=== PATIENT | female | born 1965 | race Caucasian/White ===

== ENCOUNTER 2016-06-25 06:43 | Inpatient (IN) | payer OTHER, BC ==
[2016-05-29 13:51] VITALS: BMI 35.0
--- NOTE | 2016-05-29 14:32 | PAT Medication Instructions ---
Service Date May 29, 2016. Current Home Medication List Ascorbic Acid (Yahaira-C), 1,000 MG PO QAM Aspirin (Aspirin Chewable), 81 MG PO QAM Cat's Claw (Uncaria Tomentosa) (Cats Claw), Unknown Dose QAM Celecoxib (Celebrex), 1 CAP PO QAM Cholecalciferol (Vitamin D3), 1 TAB PO QAM Esomeprazole Magnesium (Nexium), 40 MG PO QAM Iodine (Topical) (Iodine), 3-5 DROP PO QAM Magnesium Oxide (Mag-Ox), 400 MG PO QPM Multiple Vitamin (Multivitamin), 1 TAB PO QAM Potassium Gluconate (Potassium Gluconate), 1 TAB PO QAM Saccharomyces Boulardii (Probiotic), 1 CAP PO QPM Zinc (Cvs Zinc), 1 TAB PO QAM Medication Instructions For Your Scheduled Surgery - Check with surgeon for instructions: Celecoxib (Celebrex), 1 CAP PO QAM - Hold the following medications the morning of surgery: Zinc (Cvs Zinc), 1 TAB PO QAM Potassium Gluconate (Potassium Gluconate), 1 TAB PO QAM Multiple Vitamin (Multivitamin), 1 TAB PO QAM Cholecalciferol (Vitamin D3), 1 TAB PO QAM Ascorbic Acid (Yahaira-C), 1,000 MG PO QAM Iodine (Topical) (Iodine), 3-5 DROP PO QAM Cat's Claw (Uncaria Tomentosa) (Cats Claw), Unknown Dose QAM - Take the following medications the morning of surgery with a sip of water: Esomeprazole Magnesium (Nexium), 40 MG PO QAM Aspirin (Aspirin Chewable), 81 MG PO QAM (okay to continue per surgeon) - Take the following medications as scheduled the night before surgery: Saccharomyces Boulardii (Probiotic), 1 CAP PO QPM Magnesium Oxide (Mag-Ox), 400 MG PO QPM If you have any questions please call us at [phone] (Annika Miguel PA-C) or [phone] or [phone]
[2016-05-29 15:20] LABS: URINE APPEARANCE CLEAR (CLEAR); URINE BILIRUBIN NEG (NEG); URINE COLOR YELLOW; URINE NITRITE NEG (NEG); URINE PH 6.5 (4.5-7.5); URINE SPECIFIC GRAVITY 1.008 (1.000-1.030); UROBILINOGEN NEG (NEG)
[2016-05-29 15:22] LABS: MANUAL MICROSCOPIC REQUIRED? NO; REVIEW REQ? NO
[2016-05-29 15:28] LABS: PROTHROMBIN TIME (PATIENT) 10.4 SECONDS (9.0-12.0)
[2016-05-30 06:05] LABS: ESTIMATED AVERAGE GLUCOSE 108 mg/dl; HA1C FLAG Normal (Normal)
--- NOTE | 2016-06-24 15:48 | HISTORY & PHYSICAL EXAMINATION ---
DATE OF ADMISSION: 06/25/2016 CHIEF COMPLAINT: Left hip pain. HISTORY OF PRESENT ILLNESS: The patient is a 50-year-old female with known osteoarthritis about her left hip. She has had progressive pain with weightbearing and activities of daily living. She has pain with any kneeling, bending, or squatting activities. She has pain with work and home activities. She takes Tylenol for pain as needed. Due to ongoing pain and disability, she now desires to proceed with left total hip arthroplasty. PAST MEDICAL HISTORY: Lyme disease, acid reflux, obesity. PAST SURGICAL HISTORY: Right ankle, bilateral carpal tunnel, bilateral knee arthroscopy. MEDICATIONS: Plaquenil daily, vitamins, daily baby aspirin, Nexium daily. ALLERGIES: No known drug allergies. SOCIAL HISTORY AND REVIEW OF SYSTEMS: Noncontributory. PHYSICAL EXAMINATION: GENERAL: Well-nourished, well-developed, obese female who appears her stated age. HEENT: Normocephalic, atraumatic, extraocular movements intact, oropharynx pink and moist. NECK: Supple without adenopathy. LUNGS: Clear to auscultation bilaterally. HEART: Regular rate and rhythm. ABDOMEN: Soft, nontender, nondistended. EXTREMITIES: The upper extremity within normal limits. The left hip demonstrates limited range of motion. There is limitation of active and passive internal/external rotation with pain at end range. X-RAYS: X-rays were reviewed. She has near complete loss of the joint space of the left hip. There is osteophyte formation about the femoral head and acetabulum. ASSESSMENT: Left hip degenerative joint disease. PLAN: Risks versus benefits were discussed. Consent was obtained. The patient's primary care physician is Maya Martin PA-C from the [facility] in [place]. Will proceed with left total hip arthroplasty upon preop workup and medical clearance.
[2016-06-25] VITALS (12 sets, daily range): BP systolic 60–150; BP diastolic 43–92; PULSE 66–75; TEMP 36.4–36.9; O2SAT 95–100; Ht 172.7 cm; Wt 105.3 kg
[~2016-06-25] VITALS: Ht 172.7 cm; Wt 105.3 kg
[2016-06-25] MEDS: TRANEXAMIC ACID INJ 1,000 MG in SODIUM CHLORIDE 0.9% 100ML 100 ML IV SCH ×2 (06:30→08:34)
[~2016-06-25 06:43] MED LIST: ACETAMINOPHEN 500 MG TAB PO SCH; ASCOCRY2 PO; ASPCH81X PO; CAT; CEFAZOLIN 2000 MG/60 ML D5W 60 ML IV SCH; CHOL1000 PO; CLB100 PO; CeleBREX 200 MG CAP PO SCH; DEXAMETHASONE 4 MG TAB PO SCH; GABAPENTIN 300 MG CAP PO SCH; IODITIN6 PO; LACTATED RINGER'S 1000ML 1,000 ML IV SCH; LACTATED RINGER'S 1000ML 500 ML IV ONE; MAGN400T6 PO; METOCLOPRAMIDE HCL 10 MG TAB PO SCH; MULTTAB58 PO; NXM/40 PO; POTA2.5T PO; ROPIVACAINE 5MG/ML 30 ML 150 MG, BUPIVACAINE/EPINEPHR 0.5% MPF 30 ML, KETOROLAC TROMETH... INFIL SCH; SACC250C11 PO; ZINC50TA36 PO
[2016-06-25] MEDS ORDERED: FENTANYL CITRATE INJ 50 MCG/1 ML 2 ML VIAL ONE (07:26)
[2016-06-25] MEDS ORDERED: MIDAZOLAM HCL 1 MG/ML 2ML VIAL ONE (07:26)
[2016-06-25] MEDS ORDERED: PROPOFOL IV EMULSION 10 MG/ML 20 ML VIAL IV ONE ×2 (07:26→09:19)
[2016-06-25] MEDS ORDERED: LIDOCAINE HCL 2% 2 ML VIAL (20MG/ML) ONE (07:26)
[2016-06-25] MEDS ORDERED: ONDANSETRON INJ 2 MG/ML 2 ML VIAL ONE (07:27)
[2016-06-25] MEDS ORDERED: DEXAMETHASONE SOD INJ 4 MG/ML VIAL ONE (07:27)
--- NOTE | 2016-06-25 08:03 | History & Physical Bridge Note ---
H&P Re-Evaluation Bridge Note: I have examined the patient, reviewed the History & Physical and in the interval since the performance of the History & Physical I have noted the following changes of clinical significance: No changes noted
[2016-06-25] MEDS ORDERED: BUPIVACAINE 0.5 % 5 MG/1 ML PF 10ML VIAL ONE (08:07)
[2016-06-25] MEDS ORDERED: ATROPINE SULFATE 0.1 MG/ML 5ML SYR IV PRN (08:15)
[2016-06-25] MEDS ORDERED: EpHEDrine SULFATE INJ 50 MG/ML AMP IV PRN (08:15)
[2016-06-25] MEDS ORDERED: ONDANSETRON INJ 2 MG/ML 2 ML VIAL IV PRN ×2 (08:15→10:30)
[2016-06-25] MEDS ORDERED: FENTANYL CITRATE INJ 50 MCG/1 ML 2 ML VIAL IV PRN (08:15)
[2016-06-25] MEDS ORDERED: POVIDONE-IODINE OP SOLN 30 ML BTL ONE (08:29)
[2016-06-25] MEDS ORDERED: ORTHO JOINT ANESTHETIC ONE (08:29)
[2016-06-25] MEDS ORDERED: BACITRACIN 50000 UNIT VIAL ONE (08:29)
[2016-06-25] MEDS ORDERED: EpHEDrine SULFATE INJ 50 MG/ML AMP ONE (09:47)
--- NOTE | 2016-06-25 09:55 | [facility] Post Operative Brief Note ---
Immediate Operative Summary Operative Date June 25, 2016. Pre-Operative Diagnosis Left Hip Degenerative Joint Disease Post-Operative Diagnosis Left Hip Degenerative Joint Disease Procedure(s) Performed Left Total Hip Arthroplasty Surgeon Dr. Crowe Surgical Appliances Salesperson Surgeon(s) Hernandez Zhang Estimated Blood Loss 100 ml Findings OA with loose body Specimens A: Left Hip Femoral Head Complication(s) None Disposition Recovery Room / PACU
--- NOTE | 2016-06-25 10:18 | OPERATIVE REPORT ---
DATE OF OPERATION: 06/25/2016 PREOPERATIVE DIAGNOSIS: Osteoarthritis, left hip. POSTOPERATIVE DIAGNOSIS: Osteoarthritis, left hip. PROCEDURE: Left connective total hip arthroplasty. SURGEON: Dr. Crowe. PATTERN HANGER: Hernandez Cleary PA-C. ANESTHESIA: Spinal. COMPLICATIONS: None. IMPLANTS USED: Acetabular reamer used 52, acetabular shell 52, femoral stem 5, and femoral head -2.5 x 36 ceramic. DESCRIPTION OF PROCEDURE: Following induction of adequate spinal anesthesia, the patient was placed in right lateral decubitus position and left Terrell-Langenbeck incision was made. Subcutaneous tissue was sharply dissected. Electrocautery used for hemostasis. The fascia was incised throughout the length of the wound and a good scissor placed beneath the short external rotators. The pyriformis was tagged with #1 Vicryl. The short external rotators were divided from the posterior aspect of the femur using electrocautery. These were swept posteriorly. A T-capsulotomy incision was made and the hip was dislocated using a combination of flexion, adduction, and internal rotation. Exposure of the femoral neck with old-style Hohmann and a blunt Hohmann was carried out and a femoral rasp was utilized as a guide for making the appropriate level femoral neck cut. This bone fragment was removed and reserved on the back table. Next, attention was turned to the acetabulum where bone hook was used to retract the femur while the offset retractors were placed anterior and posteriorly. A double-angled Hohmann was placed in superior and anterior position exposing the acetabulum nicely. Acetabular labrum as well as posterior capsule elements were removed using a long knife and a long pickup. Fovea centralis was cleared of all soft tissue. Sequential reamings were carried up to a 52 and decision was made to proceed with impaction of a 52 trabecular metal cup. This was impacted and held using a single 35 mm bone screw. The acetabular liner was placed with 15 of elevated posterior wall in the superior and posterior position. Next, attention was turned to the femoral portion of the case where a Bovie and pickup was used to further clear short external rotators from their insertion on the femur. Box osteotome was used to gain access to the femoral canal and the T-handled rasp and a rattail rasp were used to further open and lateral the canal. Sequentially raspings were carried up to a size 5, which gave good fit and fill of the proximal femur. A trial reduction was carried out and 5 offset femoral neck component was chosen as the size to be used. A -2.5 x 36 mm femoral head was impacted into position, +0 head was utilized. The trial reduction was stable in all degrees of rotation with no [id number] impingement. The hip was dislocated. The trial components were removed and the final femoral stem, neck, and femoral head combination were assembled on the back table and impacted into position. Hip was relocated. Range of motion checked once again successful and the wound was irrigated. The pyriformis repaired to the greater trochanter using #1 Vicryl [id number] suture. A Hemovac drain was placed and the fascia was closed using #1 Vicryl, subcutaneous tissue was closed using 0 Dexon, and skin was closed with thalia. Sterile dressing of Adaptic, 4 x 4's, ABDs, and foam tape was applied. The patient tolerated the procedure well. Due to the complex nature of the procedure, the entire surgery was performed with the operational assistance of Hernandez Cleary PA-C. The water quality assistant, under direct supervision, was involved in the actual performance of all aspects of the surgical procedure including hemostasis, tissue retraction and incision, instrument management, patient positioning, and wound closure. DISPOSITION: Recovery room stable. I attest to the content of the Intraoperative Record and any orders documented therein. Any exceptio ns are noted below.
[2016-06-25] MEDS ORDERED: ZOLPIDEM TARTRATE 5 MG TAB PO PRN (10:30)
[2016-06-25] MEDS ORDERED: METOCLOPRAMIDE HCL INJ 5 MG/ML 2 ML VIAL IV PRN (10:30)
[2016-06-25] MEDS ORDERED: MoRPHine SULFATE 2 MG/ML CARP IV PRN ×2 (10:30→12:45)
[2016-06-25] MEDS ORDERED: MAGNESIUM HYDROXIDE SUSP 30 ML UDC PO PRN (10:30)
[2016-06-25] MEDS ORDERED: ALUMINUM/MAGNESIUM/SIMETH (MAALOX MAX) 30 ML UDC PO PRN (10:30)
--- NOTE | 2016-06-25 10:56 | Anesthesiology Progress Note ---
Anesthesia Post Op Note Date & Time June 25, 2016 at 10:57 Vital Signs Pain Intensity: 0 Vital Signs Past 12 Hours Date Time Temp Pulse Resp B/P Pulse Ox O2 Delivery O2 Flow Rate FiO2 06/25/16 10:45 73 18 114/71 100 Mask 6 06/25/16 10:35 76 20 113/68 100 Mask 10 06/25/16 10:28 36.6 79 20 114/73 100 Mask 10 06/25/16 07:12 36.5 73 20 135/80 98 Room Air Notes Mental Status: alert / awake / arousable, participated in evaluation Pt Amnestic to Procedure: Yes Nausea / Vomiting: adequately controlled Pain: adequately controlled Airway Patency, RR, SpO2: stable & adequate BP & HR: stable & adequate Hydration State: stable & adequate Neuraxial Anesthesia: was administered, sensory block is resolving Anesthetic Complications: no major complications apparent
--- NOTE | 2016-06-25 11:15 | DIAGNOSTIC IMAGING REPORT ---
SINGLE VIEW PELVIS; SINGLE VIEW LEFT HIP CLINICAL HISTORY: Postoperative examination. FINDINGS: 2 AP portable views of the hips and pelvis with a crosstable lateral portable view of the left hip are obtained. A bipolar left hip arthroplasty is in near-anatomic alignment. A single cortical lag screw transfixes the acetabular cup. No acute fracture is identified. There are expected postoperative changes overlying the left hip including skin clips, subcutaneous gas, a surgical drain, and soft tissue swelling. IMPRESSION: Expected postoperative findings status post left hip arthroplasty. No acute fracture is seen. Electronically signed by: Ryan Castro M.D. 06/25/2016 11:14 AM Dictated Date/Time: 06/25/2016 11:13 AM
[2016-06-25] MEDS ORDERED: MoRPHine SULFATE 10 MG/ML CARP/VIAL IV PRN (12:45)
[2016-06-25] MEDS ORDERED: MoRPHine SULFATE 4 MG/ML 1 ML CARP\\VIAL IV PRN (12:45)
[2016-06-25] MEDS: D5W AND 1/2NSS + 20MEQ KCL 1,000 ML IV SCH ×2 (13:04→20:45)
[2016-06-25] MEDS: FERROUS GLUCONATE 324 MG TAB PO SCH ×2 (13:42→17:57)
[2016-06-25] MEDS: ACETAMINOPHEN 500 MG TAB PO SCH ×2 (13:43→21:41)
[2016-06-25] MEDS: KETOROLAC TROMETHAMINE 30 MG/ML VIAL IV. SCH ×2 (13:44→20:31)
[2016-06-25] MEDS: OXYCODONE HCL IR 5 MG TAB (IMMEDIATE RELEASE) PO PRN (14:10)
[2016-06-25] MEDS: CEFAZOLIN IV 2,000 MG in DEXTROSE 5% 50ML 50 ML IV SCH (15:56)
[2016-06-25] MEDS ORDERED: SODIUM CHLORIDE 0.9% 1000ML 1,000 ML IV STA (19:14)
[2016-06-25 19:29] LABS: HEMATOCRIT 34.3 % (37-47)
[2016-06-25] MEDS: MAGNESIUM OXIDE 400 MG TAB PO SCH (21:39)
[2016-06-25] MEDS: ASPIRIN 81 MG ECTAB PO SCH (21:39)
[2016-06-25] MEDS: PREGABALIN 75 MG CAP PO SCH (21:39)
[2016-06-25] MEDS: DOCUSATE SODIUM 100 MG CAP PO SCH (21:39)
[2016-06-25] MEDS ORDERED: GLUCAGON FOR INJ 1 MG VIAL SQ PRN (22:15)
[2016-06-25] MEDS ORDERED: GLUCOSE 40% GEL 15 GM TUBE PO PRN (22:15)
[2016-06-25] MEDS ORDERED: DEXTROSE 50% 50 ML SYR IV PRN (22:15)
[2016-06-25] MEDS ORDERED: GLUCOSE 10 TABS/TUBE PO PRN (22:15)
[2016-06-25 22:58] LABS: ALB/GLOB RATIO 1.4 (0.9-2); ALKALINE PHOSPHATASE 44 U/L (45-117); ALT/SGPT 30 U/L (12-78); AST/SGOT 28 U/L (15-37); BLOOD UREA NITROGEN 15 mg/dl (7-18); BUN/CREATININE RATIO 14.9 (10-20); CARBON DIOXIDE 30 mmol/L (21-32); CHLORIDE 104 mmol/L (98-107); CKMB/CK RATIO 1.1 (0-3.0); GLUCOSE 168 mg/dl (70-99); MAGNESIUM 1.8 mg/dl (1.8-2.4); POTASSIUM 4.1 mmol/L (3.5-5.1); SODIUM 138 mmol/L (136-145)
[2016-06-26] VITALS (9 sets, daily range): BP systolic 98–139; BP diastolic 64–82; PULSE 73–86; TEMP 36.6–37; O2SAT 94–100
[2016-06-26] MEDS: CEFAZOLIN IV 2,000 MG in DEXTROSE 5% 50ML 50 ML IV SCH (00:47)
[2016-06-26] MEDS: KETOROLAC TROMETHAMINE 30 MG/ML VIAL IV. SCH ×2 (02:49→07:43)
--- NOTE | 2016-06-26 05:30 | Medical Consult ---
Consultation Date of Consultation: June 25, 2016. Attending Physician: Landon Serrano MD Reason for Consultation: Ely Schaefer called for unresponsive episode History of Present Illness Mrs Abarca is a 50 year old female s/p day 0 left THR for osteoarthritis. Ely schaefer called due to the patient having an unresponsive episode preceded by some her feeling light headed while walking in the [place]. She then went to sit down and was noted to go in and out of consciousness. When I arrived the patient was being assessed by Dr Shelby and had been transported into bed with the head of the bed tilted back and was awake and orientated. She denied any chest pain or shortness of breath before the fall or currently. She confirmed above history and felt light headed before the episode but was no longer feeling that way. She was able to move all 4 limbs (limited left leg due to surgery) and no neurological focal neurological deficit was identified on examination. BP was initially low but had improved to 106/70 at the time of assessment. Past Medical/Surgical History PAST MEDICAL HISTORY: Lyme disease, acid reflux, obesity. PAST SURGICAL HISTORY: Right ankle, bilateral carpal tunnel, bilateral knee arthroscopy. Social History Smoking Status: Never Smoker Allergies Coded Allergies: No Known Allergies (Verified , 06/25/16) Home Medications Reported Home Medications Medications Dose Route/Sig Max Daily Dose Days Date Category Cvs Zinc (Zinc) 50 Mg Tab 1 Tab PO QAM 05/29/16 Reported Celebrex (Celecoxib) 100 Mg Cap 1 Cap PO QAM 30 05/29/16 Reported Potassium Gluconate 550 Mg Tab 1 Tab PO QAM 05/29/16 Reported Vitamin D3 (Cholecalciferol) 1,000 Unit Tab 1 Tab PO QAM 90 05/29/16 Reported Probiotic (Saccharomyces Boulardii) 250 Mg Cap 1 Cap PO QPM 05/29/16 Reported Nexium (Esomeprazole Magnesium) 40 Mg Capcr 40 Mg PO QAM 05/29/16 Reported Iodine (Iodine (Topical)) 1 Tin Tin 3-5 Drop PO QAM 06/25/15 Reported Aspirin Chewable (Aspirin) 81 Mg Chew 81 Mg PO QAM 07/03/14 Reported Yahaira-C (Ascorbic Acid) 1 Cry Cry 1,000 Mg PO QAM 07/03/14 Reported Mag-Ox (Magnesium Oxide) 400 Mg Tab 400 Mg PO QPM 07/03/14 Reported Cats Claw (Cat's Claw (Uncaria Tomentosa)) 350 Mg Cap Unknown Dose QAM 07/03/14 Reported Multivitamin (Multiple Vitamin) 1 Tab Tab 1 Tab PO QAM 07/22/11 Reported Current Inpatient Medications Current Inpatient Medications Medications (Trade) Dose Ordered Sig/Elfego Route Start Time Stop Time Status Last Admin Dose Admin Lactated Ringer's 1,000 ml @ 15 mls/hr Q24H IV 06/25/16 06:00 06/26/16 05:59 Potassium Chloride/Dextrose/ Sod Cl (D5W And 1/2nss + 20meq KCl) 1,000 ml @ 100 mls/hr Q10H IV 06/25/16 12:45 06/26/16 10:26 06/25/16 20:45 100 MLS/HR Ketorolac Tromethamine (Toradol Inj) 30 mg Q6H IV. 06/25/16 14:00 06/26/16 13:59 06/26/16 02:49 30 MG Celecoxib (CeleBREX CAP) 200 mg BID PO 06/26/16 21:00 07/26/16 20:59 Oxycodone HCl (Roxicodone Immediate Rel Tab) 1 TABLET FOR PAIN RATING... Q4H PRN PO 06/25/16 10:30 07/09/16 10:29 06/25/16 14:10 10 MG Acetaminophen (Tylenol Tab) 1,000 mg Q8H PO 06/25/16 14:00 07/25/16 13:59 06/25/16 21:41 1,000 MG Pregabalin (Lyrica Cap) 75 mg BID PO 06/25/16 21:00 07/25/16 20:59 06/25/16 21:39 75 MG Magnesium Hydroxide (Milk Of Magnesia Susp) 30 ml Q6H PRN PO 06/25/16 10:30 07/25/16 10:29 Docusate Sodium (coLACE CAP) 100 mg BID PO 06/25/16 21:00 07/25/16 20:59 06/25/16 21:39 100 MG Diphenhydramine HCl (Benadryl Cap) 25 mg Q8H PRN PO 06/25/16 10:30 07/25/16 10:29 Al Hydrox/Mg Hydrox/Simethicone (Maalox Max Susp) 15 ml Q4H PRN PO 06/25/16 10:30 07/25/16 10:29 Zolpidem Tartrate (Ambien Tab) 5 mg HSZ PRN PO 06/25/16 10:30 07/25/16 10:29 Multivitamins (Multivitamin Tab) 1 tab QAM PO 06/26/16 09:00 07/26/16 08:59 Ondansetron HCl (Zofran Inj) 4 mg Q6H PRN IV 06/25/16 10:30 07/25/16 10:29 Metoclopramide HCl (Reglan Inj) 10 mg Q6H PRN IV 06/25/16 10:30 07/25/16 10:29 Ferrous Gluconate (Ferrous Gluconate Tab) 324 mg TIDM PO 06/25/16 12:30 07/25/16 12:29 06/25/16 17:57 324 MG Pantoprazole Sodium 40 mg 40 mg QAM PO 06/26/16 09:00 07/26/16 08:59 Dexamethasone Sodium Phosphate/ Syringe (Decadron Inj/ Syringe) 2.5 ml @ 1 mls/min 0730 ONCE IV 06/26/16 07:30 06/26/16 07:32 Aspirin (Ecotrin Tab) 81 mg BID PO 06/25/16 21:00 07/25/16 20:59 06/25/16 21:39 81 MG Magnesium Oxide (Mag-Ox Tab) 400 mg QPM PO 06/25/16 21:00 07/25/16 20:59 06/25/16 21:39 400 MG Morphine Sulfate (MoRPHine SULFATE INJ) 2 mg Q2HWA PRN IV 06/25/16 12:45 07/09/16 12:44 06/25/16 19:23 2 MG Morphine Sulfate (MoRPHine SULFATE INJ) 4 mg Q2HWA PRN IV 06/25/16 12:45 07/09/16 12:44 06/26/16 00:53 4 MG Morphine Sulfate (MoRPHine SULFATE INJ) 6 mg Q2HWA PRN IV 06/25/16 12:45 07/09/16 12:44 Insulin Aspart (novoLOG ASPART) SLIDING SCALE If C... ACHS SC 06/26/16 07:00 07/26/16 06:59 Glucose (Glucose 40% Gel) UD PRN PO 06/25/16 22:15 07/25/16 22:14 Glucose (Glucose Chew Tab) 1 tabs UD PRN PO 06/25/16 22:15 07/25/16 22:14 Dextrose (Dextrose 50% 50ML Syringe) 50 ml UD PRN IV 06/25/16 22:15 07/25/16 22:14 Glucagon (Glucagon Inj) 1 mg UD PRN SQ 06/25/16 22:15 07/25/16 22:14 Review of Systems Constitutional: No fever Eyes: + worsening of vision (during this episode had blurring of vision) ENT: No hearing loss Respiratory: No cough, No shortness of breath Cardiovascular: No chest pain, No claudication, No edema, No orthopnea, No palpitations Abdomen: No GI bleeding, No constipation, No diarrhea, No nausea, No pain, No vomiting Musculoskeletal: + joint pain (left hip), + muscle pain (left leg) Genitourinary - Female: No dysuria, No urinary frequency, No urinary urgency Integumentary: No itch, No rash Physical Exam Date Time Temp Pulse Resp B/P Pulse Ox O2 Delivery O2 Flow Rate FiO2 06/26/16 04:25 36.8 73 17 101/67 99 Room Air 06/26/16 04:00 Room Air 06/25/16 23:59 Room Air 06/25/16 23:41 36.6 75 18 104/67 96 Room Air 06/25/16 20:00 Room Air 06/25/16 19:39 36.9 66 18 104/65 99 Room Air 06/25/16 19:20 68 106/70 96 Room Air 06/25/16 19:20 68 17 96 06/25/16 19:18 92/52 95 Room Air 06/25/16 19:15 60/43 06/25/16 15:48 Room Air 06/25/16 15:29 36.4 75 18 150/92 97 Room Air 06/25/16 15:17 Nasal Cannula 2.0 06/25/16 14:27 71 16 128/83 98 Room Air 06/25/16 13:21 75 16 128/79 98 Room Air 06/25/16 12:25 36.4 72 18 118/79 100 Nasal Cannula 2.0 06/25/16 12:00 71 16 111/77 100 2.0 06/25/16 11:27 36.4 69 14 135/75 100 Nasal Cannula 2.0 06/25/16 11:25 100 Nasal Cannula 2.0 06/25/16 11:15 68 16 122/84 98 Nasal Cannula 3 06/25/16 11:05 36.4 67 14 122/83 100 Nasal Cannula 3 06/25/16 10:55 76 18 117/79 97 Nasal Cannula 3 06/25/16 10:45 73 18 114/71 100 Mask 6 06/25/16 10:35 76 20 113/68 100 Mask 10 06/25/16 10:28 36.6 79 20 114/73 100 Mask 10 06/25/16 07:12 36.5 73 20 135/80 98 Room Air General Appearance: WD/WN, + obese Head: normocephalic Eyes: normal inspection (pupils equal), EOMI ENT: hearing grossly normal Neck: + pertinent finding (unable to assess JVD as in reclined position) Respiratory/Chest: lungs clear, normal breath sounds, no respiratory distress, no accessory muscle use Cardiovascular: regular rate, rhythm, no edema, no murmur, normal peripheral pulses Abdomen/GI: normal bowel sounds, non tender, soft Back: no CVA tenderness Extremities/Musculoskelatal: no calf tenderness, normal capillary refill, no pedal edema, + pertinent finding (VAC dressing in place, Drain with minimal blood loss, dressing not removed but clean, dry and non erythematous surrounding dressing) Neurologic/Psych: services coordinator II-XII nml as tested, no motor/sensory deficits (limited by recent operation therefore no hip/knee movements checked on left side), alert , normal mood/affect, oriented x 3 Skin: normal color, warm/dry Laboratory Results Last 24 Hours Test 06/25/16 06:50 06/25/16 19:08 06/25/16 19:20 06/25/16 22:17 Bedside Urine Test NEG Bedside Glucose 210 mg/dl Hemoglobin 11.8 g/dL Hematocrit 34.3 % Sodium Level 138 mmol/L Potassium Level 4.1 mmol/L Chloride Level 104 mmol/L Carbon Dioxide Level 30 mmol/L Anion Gap 4.0 mmol/L Blood Urea Nitrogen 15 mg/dl Creatinine 1.00 mg/dl Est Creatinine Clear Calc Drug Dose 84.5 ml/min Estimated GFR () 75.5 Estimated GFR (Non- 65.2 BUN/Creatinine Ratio 14.9 Random Glucose 168 mg/dl Calcium Level 8.0 mg/dl Magnesium Level 1.8 mg/dl Total Bilirubin 0.4 mg/dl Aspartate Amino Transf (AST/SGOT) 28 U/L Alanine Aminotransferase (ALT/SGPT) 30 U/L Alkaline Phosphatase 44 U/L Total Creatine Kinase 444 U/L Creatine Kinase MB 4.8 ng/ml Creatine Kinase MB Ratio 1.1 Troponin I < 0.015 ng/ml Total Protein 5.7 gm/dl Albumin 3.3 gm/dl Globulin 2.4 gm/dl Albumin/Globulin Ratio 1.4 Assessment & Plan 50 year old female day 0 s/p left THR with no prior cardiac history had an unresponsive episode with hypotension and dizziness after walking Unresponsive episode - labs ordered including troponin appear unremarkable. - no chest findings on auscultation to suggest need for CXR - suspect vasovagal episode secondary to pain and dehydration - bolus NSS 500 ml given, then switch back to maintenance - transferred patient to telemetry for continued cardiac monitoring Elevated BSG - suspect secondary to stress of surgery. HbA1C 5.4 on pre-op testing. - ACHS BSG GERD - Nexium already switched to pantoprazole VTE Prophylaxis as per primary orthopedic team Code - Full Disposition - transfer to telemetry as above Resident Tracking Resident Involvement: Resident Care Provided Care Provided: Adult [facility] Medicine Assessment and Plan Attending Addendum: I have physically seen and examined this patient, have directed their medical care, have supervised the medical residents activities, and agree with the H&P as noted above, with the following changes: NONE
[2016-06-26 06:22] LABS: BASO % 0.2 %; BASO ABS # 0.02 K/uL (0-0.2); COMPLETE YES; HEMATOCRIT 29.3 % (37-47); IG% 0.3 %; LYMPH % 10.4 %; LYMPH ABS # 1.19 K/uL (1.2-3.4); MEAN CELL VOLUME 96.1 fL (80-100); MEAN CORPUSCULAR HEMOGLOBIN 32.8 pg (25-34); MEAN CORPUSCULAR HGB CONC 34.1 g/dl (32-36); MEAN PLATELET VOLUME 10.9 fL (7.4-10.4); MONO % 11.1 %; PLATELET COUNT 199 K/uL (130-400); RED BLOOD COUNT 3.05 M/uL (4.2-5.4); WHITE BLOOD COUNT 11.49 K/uL (4.8-10.8)
[2016-06-26] MEDS: ACETAMINOPHEN 500 MG TAB PO SCH ×3 (06:24→21:47)
[2016-06-26 06:45] LABS: BLOOD UREA NITROGEN 14 mg/dl (7-18); BUN/CREATININE RATIO 18.1 (10-20); CALCIUM 7.6 mg/dl (8.5-10.1); CARBON DIOXIDE 30 mmol/L (21-32); CHLORIDE 108 mmol/L (98-107); CREATININE 0.79 mg/dl (0.60-1.20); GLUCOSE 109 mg/dl (70-99); MAGNESIUM 2.2 mg/dl (1.8-2.4); SODIUM 141 mmol/L (136-145)
[2016-06-26 06:50] LABS: CKMB/CK RATIO 0.9 (0-3.0)
[2016-06-26] MEDS ORDERED: DEXAMETHASONE INJ 10 MG in SYRINGE 0 ML IV ONE (07:30)
[2016-06-26] MEDS: DOCUSATE SODIUM 100 MG CAP PO SCH ×2 (07:43→21:43)
[2016-06-26] MEDS: FERROUS GLUCONATE 324 MG TAB PO SCH ×3 (07:43→17:45)
--- NOTE | 2016-06-26 07:44 | Anesthesiology Progress Note ---
Anesthesia Post Op Note Date & Time June 26, 2016 at 07:44 Vital Signs Pain Intensity: 3.0 Vital Signs Past 12 Hours Date Time Temp Pulse Resp B/P Pulse Ox O2 Delivery O2 Flow Rate FiO2 06/26/16 04:25 36.8 73 17 101/67 99 Room Air 06/26/16 04:00 Room Air 06/25/16 23:59 Room Air 06/25/16 23:41 36.6 75 18 104/67 96 Room Air 06/25/16 20:00 Room Air Notes Mental Status: alert / awake / arousable, participated in evaluation Pt Amnestic to Procedure: Yes Nausea / Vomiting: adequately controlled Pain: adequately controlled Airway Patency, RR, SpO2: stable & adequate BP & HR: stable & adequate Hydration State: stable & adequate Neuraxial Anesthesia: was administered, sensory block resolved Anesthetic Complications: no major complications apparent
[2016-06-26] MEDS: D5W AND 1/2NSS + 20MEQ KCL 1,000 ML IV SCH (07:45)
[2016-06-26] MEDS: PREGABALIN 75 MG CAP PO SCH ×2 (07:47→21:00)
[2016-06-26] MEDS: PANTOprazole SOD 40 MG TAB PO SCH (07:48)
[2016-06-26] MEDS: MULTIVITAMIN TAB PO SCH (07:49)
[2016-06-26] MEDS: ASPIRIN 81 MG ECTAB PO SCH ×2 (07:49→21:43)
[2016-06-26] MEDS: INSULIN ASPART 100 UNITS/ML 3 ML PEN SC SCH ×4 (08:10→21:00)
--- NOTE | 2016-06-26 08:15 | Orthopedic Progress Note ---
Orthopedic Progress Note Date of Service June 26, 2016. Subjective Post OP Day: 1 Reports: feeling well (Pt currently in telemetry as she had a likely vasovagal episode yesterday. She states she is feeling much better, BP still decreased) Objective N/V intact, dressing C/D/I (hemovac d/c'd), toes mobile Date Time Temp Pulse Resp B/P Pulse Ox O2 Delivery O2 Flow Rate FiO2 06/26/16 04:25 36.8 73 17 101/67 99 Room Air 06/26/16 04:00 Room Air 06/25/16 23:59 Room Air 06/25/16 23:41 36.6 75 18 104/67 96 Room Air 06/25/16 20:00 Room Air 06/25/16 19:39 36.9 66 18 104/65 99 Room Air 06/25/16 19:20 68 106/70 96 Room Air 06/25/16 19:20 68 17 96 06/25/16 19:18 92/52 95 Room Air 06/25/16 19:15 60/43 06/25/16 15:48 Room Air 06/25/16 15:29 36.4 75 18 150/92 97 Room Air 06/25/16 15:17 Nasal Cannula 2.0 06/25/16 14:27 71 16 128/83 98 Room Air 06/25/16 13:21 75 16 128/79 98 Room Air 06/25/16 12:25 36.4 72 18 118/79 100 Nasal Cannula 2.0 06/25/16 12:00 71 16 111/77 100 2.0 06/25/16 11:27 36.4 69 14 135/75 100 Nasal Cannula 2.0 06/25/16 11:25 100 Nasal Cannula 2.0 06/25/16 11:15 68 16 122/84 98 Nasal Cannula 3 06/25/16 11:05 36.4 67 14 122/83 100 Nasal Cannula 3 06/25/16 10:55 76 18 117/79 97 Nasal Cannula 3 06/25/16 10:45 73 18 114/71 100 Mask 6 06/25/16 10:35 76 20 113/68 100 Mask 10 06/25/16 10:28 36.6 79 20 114/73 100 Mask 10 Laboratory Results 24 Hours: Test 06/25/16 19:06/26/16 06:02 Hematocrit 34.3 % 29.3 % Hemoglobin 11.8 g/dL 10.0 g/dL White Blood Count 11.49 K/uL Red Blood Count 3.05 M/uL Mean Corpuscular Volume 96.1 fL Mean Corpuscular Hemoglobin 32.8 pg Mean Corpuscular Hemoglobin Concent 34.1 g/dl Platelet Count 199 K/uL Mean Platelet Volume 10.9 fL Neutrophils (%) (Auto) 78.0 % Lymphocytes (%) (Auto) 10.4 % Monocytes (%) (Auto) 11.1 % Eosinophils (%) (Auto) 0.0 % Basophils (%) (Auto) 0.2 % Neutrophils # (Auto) 8.97 K/uL Lymphocytes # (Auto) 1.19 K/uL Monocytes # (Auto) 1.28 K/uL Eosinophils # (Auto) 0.00 K/uL Basophils # (Auto) 0.02 K/uL Assessment & Plan Assessment: 50 yo female stable POD #1 s/p left HOWARD, currently being monitored in telemetry for likely vasovagal episode yesterday Plan: 1. Med management- transfer back to med-surg when stable 2. DVT prophylaxis- ASA, TEDs, SCDs 3. PT/OT- begin when ok with medicine 4. D/C planning- home w/ OPPT
--- NOTE | 2016-06-26 12:29 | Hospitalist Progress Note ---
Hospitalist Progress Note Date of Service June 26, 2016. (Clare Mckinnon ., DAVIDC) I personally interviewed the patient I agree with the above physical exam and I did perform my personal physical examination I personally reviewed all data and labs I personally reviewed Hx and discussed the case with staff I discussed the above plan with Miss Mckinnon Willard Jacobsen supervising attending 50 y/o female s/p L total hip arthroplasty with Dr. Crowe on 06/25 for medical management following an unresponsive episode. -Pain management, DVT prophylaxis, and PT/OT as per primary team Unresponsive episode--resolved, likely vasovagal or due to dehydration currently stable no further episodes no new complains ok to transfer back to surgical will check labs in am EKG reviewed (Willard Yee MD) Subjective Pt evaluation today including: conversation w/ patient, physical exam, chart review, lab review, review of inpatient medication list Pain: Mild soreness in left hip PO Intake: Tolerating PO diet Voiding: no voiding problems Patient reports feeling well. Patient had an unresponsive episode yesterday after walking the hallway and feeling lightheaded. Patient's blood pressure at that time was 60/43. The episode was felt to be vasovagal and has not recurred since. The patient states she feels fine today and denies any lightheadedness, loss consciousness, shortness of breath or vision changes. The patient states that she was able to ambulate in the hallway a few times without any issues. Her blood pressure has remained stable today. The patient reports passing gas after surgery and is tolerating her diet well. She denies any difficulties urinating. She is not yet passed a bowel movement. She reports only a mild soreness in her left hip. The patient denies fevers, chills, sweats, chest pain , palpitations, claudication, cough, wheezing, shortness of breath, nausea, vomiting, abdominal pain, dysuria, hematuria, urinary retention, paralysis, weakness, numbness and tingling. Additional Comments: See HPI for pertinent positives and negatives. All other systems reviewed and negative. (Clare Mckinnon ., PA-C) Objective Vital Signs Date Time Temp Pulse Resp B/P Pulse Ox O2 Delivery O2 Flow Rate FiO2 06/26/16 11:13 36.9 85 20 139/79 96 Room Air 06/26/16 10:00 86 18 121/82 98 Room Air 06/26/16 07:29 37.0 80 20 98/64 97 Room Air 06/26/16 04:25 36.8 73 17 101/67 99 Room Air 06/26/16 04:00 Room Air 06/25/16 23:59 Room Air 06/25/16 23:41 36.6 75 18 104/67 96 Room Air 06/25/16 20:00 Room Air 06/25/16 19:39 36.9 66 18 104/65 99 Room Air 06/25/16 19:20 68 106/70 96 Room Air 06/25/16 19:20 68 17 96 06/25/16 19:18 92/52 95 Room Air 06/25/16 19:15 60/43 06/25/16 15:48 Room Air 06/25/16 15:29 36.4 75 18 150/92 97 Room Air 06/25/16 15:17 Nasal Cannula 2.0 06/25/16 14:27 71 16 128/83 98 Room Air 06/25/16 13:21 75 16 128/79 98 Room Air 06/25/16 12:25 36.4 72 18 118/79 100 Nasal Cannula 2.0 (Clare Mckinnon, PA-C) Physical Exam Notes: General appearance: Well-developed, well-nourished, no apparent distress Head: Normocephalic, atraumatic Eyes: Normal inspection, PERRL, EOMI ENT: Normal ENT inspection, hearing grossly normal, pharynx normal Neck: Supple, no JVD, trachea midline Respiratory/Chest: Lungs clear to auscultation, normal breath sounds, no respiratory distress Cardiovascular: Regular rate & rhythm, no gallop, no murmur Abdomen/GI: Normal bowel sounds, non-tender, soft Extremities/Musculoskeletal: Normal inspection, no calf tenderness, no pedal edema Neurological/Psych: Alert, normal mood/affect, oriented x 3 Skin: Normal color, warm/dry, no rash (Clare Mckinnon, PA-C) Laboratory Results Last 24 Hours Test 06/25/16 19:08 06/25/16 19:20 06/25/16 22:17 06/26/16 06:02 Bedside Glucose 210 mg/dl Hemoglobin 11.8 g/dL 10.0 g/dL Hematocrit 34.3 % 29.3 % Sodium Level 138 mmol/L 141 mmol/L Potassium Level 4.1 mmol/L 4.0 mmol/L Chloride Level 104 mmol/L 108 mmol/L Carbon Dioxide Level 30 mmol/L 30 mmol/L Anion Gap 4.0 mmol/L 3.0 mmol/L Blood Urea Nitrogen 15 mg/dl 14 mg/dl Creatinine 1.00 mg/dl 0.79 mg/dl Est Creatinine Clear Calc Drug Dose 84.5 ml/min 107.0 ml/min Estimated GFR () 75.5 100.5 Estimated GFR (Non- 65.2 86.7 BUN/Creatinine Ratio 14.9 18.1 Random Glucose 168 mg/dl 109 mg/dl Calcium Level 8.0 mg/dl 7.6 mg/dl Magnesium Level 1.8 mg/dl 2.2 mg/dl Total Bilirubin 0.4 mg/dl Aspartate Amino Transf (AST/SGOT) 28 U/L Alanine Aminotransferase (ALT/SGPT) 30 U/L Alkaline Phosphatase 44 U/L Total Creatine Kinase 444 U/L 402 U/L Creatine Kinase MB 4.8 ng/ml 3.8 ng/ml Creatine Kinase MB Ratio 1.1 0.9 Troponin I < 0.015 ng/ml < 0.015 ng/ml Total Protein 5.7 gm/dl Albumin 3.3 gm/dl Globulin 2.4 gm/dl Albumin/Globulin Ratio 1.4 White Blood Count 11.49 K/uL Red Blood Count 3.05 M/uL Mean Corpuscular Volume 96.1 fL Mean Corpuscular Hemoglobin 32.8 pg Mean Corpuscular Hemoglobin Concent 34.1 g/dl Platelet Count 199 K/uL Mean Platelet Volume 10.9 fL Neutrophils (%) (Auto) 78.0 % Lymphocytes (%) (Auto) 10.4 % Monocytes (%) (Auto) 11.1 % Eosinophils (%) (Auto) 0.0 % Basophils (%) (Auto) 0.2 % Neutrophils # (Auto) 8.97 K/uL Lymphocytes # (Auto) 1.19 K/uL Monocytes # (Auto) 1.28 K/uL Eosinophils # (Auto) 0.00 K/uL Basophils # (Auto) 0.02 K/uL RDW Standard Deviation 46.9 fL RDW Coefficient of Variation 13.3 % Immature Granulocyte % (Auto) 0.3 % Immature Granulocyte # (Auto) 0.03 K/uL Hepatitis C Antibody Screen NEG Test 06/26/16 06:47 06/26/16 11:47 Bedside Glucose 128 mg/dl 181 mg/dl (Clare Mckinnon ., DEMOND) Assessment and Plan 50 y/o female with a history of GERD, hypomagnesemia, and hypokalemia who presents s/p L total hip arthroplasty with Dr. Crowe on 06/25 for medical management following an unresponsive episode. -Pain management, DVT prophylaxis, and PT/OT as per primary team -POD #1 Unresponsive episode--resolved, likely vasovagal -Patient transferred to telemetry on 06/25. No acute events overnight, patient remained in sinus rhythm with HR between 80s to 90s -Cardiac enzymes negative -Hypertension resolved after receiving 500 mL fluid bolus -Patient is stable. Transfer back to Med/Surg 06/26 Elevated BSG--ongoing -HbA1c was 5.4 on 05/29/16 -Insulin sliding scale -Check BSGs q ac and qhs GERD -Continue pantoprazole 40 mg PO qd H/o hypomagnesemia--stable -Magnesium 2.2 -Continue magnesium oxide 400 mg PO qpm H/o hypokalemia--stable -Patient had been receiving potassium in her IV fluids which were d/c'd this morning -Potassium 4.0 -Continue potassium gluconate 550 mg PO qam Code Status -Level I, FULL RESUSCITATION STATUS Thank you for this consultation. We will continue to follow. (Clare Mckinnon ., DAVIDC)
[2016-06-26 14:58] LABS: CKMB/CK RATIO 0.6 (0-3.0)
[2016-06-26] MEDS: OXYCODONE HCL IR 5 MG TAB (IMMEDIATE RELEASE) PO PRN ×2 (15:54→21:20)
[2016-06-26] MEDS: MAGNESIUM OXIDE 400 MG TAB PO SCH (21:43)
[2016-06-26] MEDS: CeleBREX 200 MG CAP PO SCH (21:44)
[2016-06-27] MEDS: OXYCODONE HCL IR 5 MG TAB (IMMEDIATE RELEASE) PO PRN ×3 (04:38→12:47)
[2016-06-27] MEDS: ACETAMINOPHEN 500 MG TAB PO SCH (05:54)
[2016-06-27 06:48] LABS: BASO % 0.3 %; BASO ABS # 0.02 K/uL (0-0.2); COMPLETE YES; EOS % 0.6 %; HEMATOCRIT 28.9 % (37-47); IG% 0.3 %; LYMPH % 22.2 %; LYMPH ABS # 1.51 K/uL (1.2-3.4); MEAN CORPUSCULAR HEMOGLOBIN 31.6 pg (25-34); MEAN CORPUSCULAR HGB CONC 32.9 g/dl (32-36); MEAN PLATELET VOLUME 10.8 fL (7.4-10.4); MONO % 14.1 %; NEUT % 62.5 %; PLATELET COUNT 198 K/uL (130-400); RED BLOOD COUNT 3.01 M/uL (4.2-5.4); WHITE BLOOD COUNT 6.81 K/uL (4.8-10.8)
[2016-06-27 07:24] LABS: ALB/GLOB RATIO 1.2 (0.9-2); BUN/CREATININE RATIO 13.2 (10-20); CALCIUM 7.9 mg/dl (8.5-10.1); CREATININE 0.67 mg/dl (0.60-1.20); MAGNESIUM 2.2 mg/dl (1.8-2.4); PHOSPHORUS 2.4 mg/dl (2.5-4.9); POTASSIUM 3.8 mmol/L (3.5-5.1)
[2016-06-27 07:37] VITALS: BP 105/67; PULSE 70; TEMP 36.4; O2SAT 97
[2016-06-27] MEDS: INSULIN ASPART 100 UNITS/ML 3 ML PEN SC SCH ×2 (08:00→12:00)
--- NOTE | 2016-06-27 08:38 | Orthopedic Progress Note ---
Orthopedic Progress Note Date of Service June 27, 2016. Subjective Post OP Day: 2 Reports: feeling well, Denies: SOB, calf pain, chest pain, light headedness, nausea / vomiting Objective calves soft nontender, N/V intact, hip located, dressing C/D/I (PREVENA), A&O x3 , toes mobile Date Time Temp Pulse Resp B/P Pulse Ox O2 Delivery O2 Flow Rate FiO2 06/27/16 07:37 36.4 70 17 105/67 97 Room Air 06/27/16 00:15 Room Air 06/26/16 23:33 37.0 80 16 124/74 96 Room Air 06/26/16 16:15 Room Air 06/26/16 15:04 36.8 82 18 124/80 100 Room Air 06/26/16 14:06 Room Air 06/26/16 14:04 36.6 82 16 131/81 94 Room Air 06/26/16 11:13 36.9 85 20 139/79 96 Room Air 06/26/16 10:00 86 18 121/82 98 Room Air Laboratory Results 24 Hours: Test 06/27/16 06:29 White Blood Count 6.81 K/uL Red Blood Count 3.01 M/uL Hemoglobin 9.5 g/dL Hematocrit 28.9 % Mean Corpuscular Volume 96.0 fL Mean Corpuscular Hemoglobin 31.6 pg Mean Corpuscular Hemoglobin Concent 32.9 g/dl Platelet Count 198 K/uL Mean Platelet Volume 10.8 fL Neutrophils (%) (Auto) 62.5 % Lymphocytes (%) (Auto) 22.2 % Monocytes (%) (Auto) 14.1 % Eosinophils (%) (Auto) 0.6 % Basophils (%) (Auto) 0.3 % Neutrophils # (Auto) 4.26 K/uL Lymphocytes # (Auto) 1.51 K/uL Monocytes # (Auto) 0.96 K/uL Eosinophils # (Auto) 0.04 K/uL Basophils # (Auto) 0.02 K/uL Assessment & Plan Assessment: 50 yo female stable POD #2 s/p left HOWARD, currently being monitored in telemetry for likely vasovagal episode yesterday Plan: 1. Med management- transfer back to med-surg when stable 2. DVT prophylaxis- ASA, TEDs, SCDs 3. PT/OT- begin when ok with medicine 4. D/C planning- home w/ OPPT Inhouse Planning Pain Management: Celebrex, Oxycontin, PO Tylenol, Oxy IR DVT Prophylaxis: TEDs, SCDs, ASA Discharge Planning Discharge Planning: home with home health (PATIENT DECIDED SHE'D LIKE HOME NURSING)
[2016-06-27] MEDS ORDERED: ACET-1138 PO (08:41)
[2016-06-27] MEDS ORDERED: ASPCH81X PO (08:41)
[2016-06-27] MEDS ORDERED: CLB200 PO (08:41)
[2016-06-27] MEDS ORDERED: ONDA8TAB6 PO (08:41)
[2016-06-27] MEDS ORDERED: RXC5 PO (08:41)
--- NOTE | 2016-06-27 08:43 | Discharge Instructions ---
Discharge Instructions Date of Service June 27, 2016. Admission Reason for Admission: Left Hip Osteoarthritis Discharge Discharge Diagnosis / Problem: SP LEFT HOWARD Discharge Goals Goal(s): Decrease discomfort, Improve function, Increase independence Activity Recommendations Activity Limitations: per Instructions/Follow-up section . Instructions / Follow-Up Instructions / Follow-Up ACTIVITY RECOMMENDATIONS: SELF CARE INSTRUCTIONS AFTER TOTAL HIP REPLACEMENT Until the incision and soft tissues around your hip have healed, there is a possibility that the hip prosthesis could dislocate. A. Observe the following precautions to prevent dislocation: 1. Don't bend your hip greater than 90 degrees. 2. Avoid crossing your legs or ankles while standing or lying. 3. Sit with your feet placed 6 inches apart. 4. When sitting, keep your knees below your hips. Sit on a firm surface, avoid deep, soft chairs and couches. Use an elevated toilet seat in the bathroom. 5. Don't bend over at the waist. Use a long handled shoehorn and a sock aid to help you put on your shoes and socks. A channeler runner can help you grape picker objects that are too high or too low to reach. 6. Keep car riding to a minimum for at least one month after surgery. B. Your balance may be shaky for a while. Use crutches or a walker until directed by your doctor. C. Use hand rails when walking on stairs. D. Wear low heeled shoes with non-slip soles. E. Be sure that your floors are free of things that could trip you - throw rugs , electrical cords, small objects. Avoid wet and waxed floors, especially with crutches and canes. F. Try to walk several times a day with rest periods between. G. Continue with all the exercises taught to you in the hospital. Again, make walking a part of your daily routine. SPECIAL CARE INSTRUCTIONS: VERY IMPORTANT TO READ AND REVIEW A. You may still be at risk for phlebitis and blood clots. 1. Wear surgical stockings (YIFAN hose) for 2 weeks after surgery to improve circulation and reduce swelling. 2. Take Aspirin 81mg twice daily for 4 weeks or as directed by your doctor. This is your blood thinner. 3. High risk patients may be prescribed a stronger blood thinner if necessary. 4. If you are on Coumadin normally, your family doctor/avian keeper should monitor your blood work. Expect a phone call the day of or the day after bloodwork is drawn to adjust your dosage. B. You must take antibiotics before having dental work, bladder, bowel and other surgery. Your doctor will provide you with a permanent card to carry describing precautions. C. Call [facility] if you have a fever, redness or swelling around the incision, cloudy drainage from incision, or sudden increase in pain in your hip, not relieved by your regular pain medication. D. Please call the office at if you have any concerns or questions about your operation or recovery. * YOU MAY SHOWER, NO TUB BATHS UNTIL CLEARED BY YOUR DOCTOR. * WEAR YIFAN HOSE 20 HOURS PER DAY FOR 2 WEEKS. * YOU SHOULD USE A WALKER OR CRUTCHES FOR 2-4 WEEKS. THIS WILL HELP PREVENT STRAIN ON YOUR HIP MUSCLE AND ALLOW IT TO HEAL PROPERLY. YOU MAY WEAN TO A CANE TOLERATED. * MOST PATIENTS WILL HAVE HOME NURSING FOR THERAPY. IF YOU DECIDE TO DO OUTPATIENT PHYSICAL THERAPY, PLEASE SCHEDULE THIS 3 TIMES PER WEEK. Prevena- This is a large suction dressing covering your incision. This will help pull any excess drainage from the wound and allow your incision to heal properly. You may shower with this if you can keep the unit outside of the shower. If any bleeding or leakage is noted please call your doctor's office. This will remain on your incision for 7 days and then should be removed. This can be done yourself or by the home nursing staff if applicable. The entire unit is disposable once removed. Once removed, keep incision clean and dry. If redness or drainage is noted, please call your surgeon. FOLLOW UP VISIT: If appointment is not already scheduled: Please call [facility] to make a follow-up appointment for 2 weeks after your surgery at . Current Hospital Diet Patient's current hospital diet: Diabetes Type 2 Diet Discharge Diet Recommended Diet: Regular Diet Procedures Procedures Performed: Left Total Hip Arthroplasty:Uncemented Pending Studies Studies pending at discharge: no Laboratory Results Hemoglobin A1c Test 05/29/16 14:41 Range/Units Estimated Average Glucose 108 mg/dl Hemoglobin A1c 5.4 4.5-5.6 % Medical Emergencies . Who to Call and When: Medical Emergencies: If at any time you feel your situation is an emergency, please call 911 immediately. . Non-Emergent Contact Non-Emergency issues call your: Surgeon . "Provider Documentation" section prepared by Maya Merrill. . VTE Core Measure Inpt VTE Proph given/why not?: Other Anticoagulation, T.E.Sandrita Stockings, SCD's [place] Drug Monitoring Program Search Results: patient reviewed within database, no issues identified
[2016-06-27] MEDS: PREGABALIN 75 MG CAP PO SCH (09:00)
[2016-06-27] MEDS: FERROUS GLUCONATE 324 MG TAB PO SCH ×2 (09:27→12:48)
[2016-06-27] MEDS: CeleBREX 200 MG CAP PO SCH (09:28)
[2016-06-27] MEDS: DOCUSATE SODIUM 100 MG CAP PO SCH (09:28)
[2016-06-27] MEDS: ASPIRIN 81 MG ECTAB PO SCH (09:28)
[2016-06-27] MEDS: MULTIVITAMIN TAB PO SCH (09:29)
[2016-06-27] MEDS: PANTOprazole SOD 40 MG TAB PO SCH (09:30)
[2016-06-27 11:04] VITALS: BP 105/67; PULSE 70; TEMP 36.4; O2SAT 97
--- NOTE | 2016-06-27 14:41 | Progress Note ---
Subjective Date of Service: June 27, 2016. Subjective Pt evaluation today including: conversation w/ patient, physical exam, chart review, lab review, review of inpatient medication list Review of Systems Constitutional: No chills, No fatigue, No fever, No problem reported, No see HPI, No sweats, No weakness, No weight loss Eyes: No diplopia, No discharge, No eye pain, No problem reported, No redness, No see HPI, No worsening of vision ENT: No dental problems, No hearing loss, No nasal symptoms, No problem reported, No see HPI, No sore throat, No tinnitus, No trouble swallowing, No unusual epistaxis Respiratory: No cough, No dyspnea at rest, No dyspnea on exertion, No hemoptysis, No problem reported, No see HPI, No shortness of breath, No sputum, No wheezing Cardiac: No PND, No chest pain, No claudication, No edema, No orthopnea, No palpitations, No problem reported, No see HPI Breast: No breast lump, No breast pain, No change in shape, No nipple discharge , No problem reported, No see HPI Abdomen: No GI bleeding, No constipation, No diarrhea, No nausea, No pain, No problem reported, No see HPI, No vomiting Musculoskeletal: No calf pain, No joint pain, No muscle pain, No problem reported, No see HPI, No swelling Neurologic: No balance problems, No memory loss, No numbness/tingling, No paralysis, No problem reported, No see HPI, No vertigo, No weakness Psychiatric: No anhedonism, No anxiety, No depression symptoms, No insomnia, No problem reported, No see HPI, No substance abuse Heme: No abnormal bleeding/bruising, No clotting problems, No night sweats, No problem reported, No see HPI, No swollen lymph nodes Endo: No excessive thirst, No excessive urination, No fatigue, No problem reported, No see HPI Skin: No bleeding, No color change, No itch, No new/changing skin lesions, No problem reported, No rash, No see HPI Objective Vital Signs Date Time Temp Pulse Resp B/P Pulse Ox O2 Delivery O2 Flow Rate FiO2 06/27/16 11:04 36.4 70 17 97 Room Air 06/27/16 10:37 Room Air 06/27/16 07:37 36.4 70 17 105/67 97 Room Air 06/27/16 00:15 Room Air 06/26/16 23:33 37.0 80 16 124/74 96 Room Air 06/26/16 16:15 Room Air 06/26/16 15:04 36.8 82 18 124/80 100 Room Air Physical Exam General Appearance: WD/WN, no apparent distress Eyes: normal inspection, EOMI ENT: normal ENT inspection, hearing grossly normal Neck: supple Respiratory/Chest: chest non-tender, lungs clear, normal breath sounds, no respiratory distress, no accessory muscle use Cardiovascular: regular rate, rhythm, no edema, no gallop, no JVD, no murmur Abdomen: normal bowel sounds, non tender, soft, no organomegaly, no pulsatile mass Extremities: normal range of motion, non-tender, normal inspection, no pedal edema, no calf tenderness Neurologic/Psychiatric: inspector weights and measures II-XII nml as tested, no motor/sensory deficits, alert, normal mood/affect, oriented x 3 Skin: normal color, warm/dry, no rash Laboratory Results Last 24 Hours Test 06/26/16 17:30 06/26/16 20:31 06/27/16 06:29 06/27/16 08:23 Bedside Glucose 124 mg/dl 99 mg/dl 86 mg/dl White Blood Count 6.81 K/uL Red Blood Count 3.01 M/uL Hemoglobin 9.5 g/dL Hematocrit 28.9 % Mean Corpuscular Volume 96.0 fL Mean Corpuscular Hemoglobin 31.6 pg Mean Corpuscular Hemoglobin Concent 32.9 g/dl Platelet Count 198 K/uL Mean Platelet Volume 10.8 fL Neutrophils (%) (Auto) 62.5 % Lymphocytes (%) (Auto) 22.2 % Monocytes (%) (Auto) 14.1 % Eosinophils (%) (Auto) 0.6 % Basophils (%) (Auto) 0.3 % Neutrophils # (Auto) 4.26 K/uL Lymphocytes # (Auto) 1.51 K/uL Monocytes # (Auto) 0.96 K/uL Eosinophils # (Auto) 0.04 K/uL Basophils # (Auto) 0.02 K/uL RDW Standard Deviation 48.3 fL RDW Coefficient of Variation 13.6 % Immature Granulocyte % (Auto) 0.3 % Immature Granulocyte # (Auto) 0.02 K/uL Sodium Level 142 mmol/L Potassium Level 3.8 mmol/L Chloride Level 106 mmol/L Carbon Dioxide Level 31 mmol/L Anion Gap 5.0 mmol/L Blood Urea Nitrogen 9 mg/dl Creatinine 0.67 mg/dl Est Creatinine Clear Calc Drug Dose 126.2 ml/min Estimated GFR () 118.0 Estimated GFR (Non- 101.8 BUN/Creatinine Ratio 13.2 Random Glucose 89 mg/dl Calcium Level 7.9 mg/dl Phosphorus Level 2.4 mg/dl Magnesium Level 2.2 mg/dl Total Bilirubin 0.3 mg/dl Aspartate Amino Transf (AST/SGOT) 21 U/L Alanine Aminotransferase (ALT/SGPT) 19 U/L Alkaline Phosphatase 40 U/L Total Protein 5.4 gm/dl Albumin 3.0 gm/dl Globulin 2.4 gm/dl Albumin/Globulin Ratio 1.2 Assessment and Plan 50 y/o female s/p L total hip arthroplasty with Dr. Crowe on 06/25 for medical management following an unresponsive episode. -Pain management, DVT prophylaxis, and PT/OT as per primary team Unresponsive episode--resolved, likely vasovagal or due to dehydration, Hgb dropped from 11.8 to 9.5 , she was instructed to restart her iron tablet with stool sftner currently stable no further episodes no new complains ok to discharge from the medical aspect
--- NOTE | 2016-07-08 19:11 | DISCHARGE SUMMARY ---
CHIEF COMPLAINT: Left hip pain. Please see complete history and physical examination. HOSPITAL COURSE: The patient underwent left total hip arthroplasty without complication. She tolerated the procedure well and was discharged to recovery room in stable condition. Her postoperative course was relatively uneventful. She was transferred to the telemetry unit for monitoring following a bout of unresponsiveness associated with hypotension and dizziness. She had a full workup including a cardiac workup which was all negative. It was basically felt that the patient had a vasovagal episode. She was transferred back to the orthopedic floor the next day. Otherwise, her H\T\H was stable and did not require transfusion. She was started on aspirin for DVT prophylaxis. She also utilized YIFAN stockings and SCDs for additional prophylaxis. Her surgical drain was discontinued by postoperative day 1, her surgical dressing will remain in place for approximately 7 days postoperative. She tolerated postoperative physical therapy reasonably well where she was ambulating and transferring appropriately. She was observing all total hip precautions. She was discharged home on postoperative day 2. She will continue her physical therapy as an outpatient. She will continue her aspirin for DVT prophylaxis and follow up in our office in approximately 10-14 days for initial postop evaluation.
== END 2016-06-27 13:34 | disposition home or self-care (01) | DRG 470 ==
LOC: ENRESERVDT → ENRESERVTM → C.ACU 06:43 → C.MSN 06:48 → C.2T 19:18 → C.3E 06-26 13:38
PROC: 0SRB0JZ Replacement of Left Hip Joint with Synthetic Substitute, Open Approach (ICD-10-PCS; principal; 2016-06-25 09:15)
DX: M16.12 Unilateral primary osteoarthritis, left hip (principal); A69.20 Lyme disease, unspecified; K21.9 Gastro-esophageal reflux disease without esophagitis; E66.9 Obesity, unspecified; Z79.82 Long term (current) use of aspirin

== ENCOUNTER → 2016-07-08 | Outpatient (CLI) | payer OTHER, BC ==
[~2016-07-08] MED LIST changes: +ACET-1138 PO; -ACETAMINOPHEN 500 MG TAB PO SCH; -CEFAZOLIN 2000 MG/60 ML D5W 60 ML IV SCH; -CLB100 PO; +CLB200 PO; -CeleBREX 200 MG CAP PO SCH; -DEXAMETHASONE 4 MG TAB PO SCH; -GABAPENTIN 300 MG CAP PO SCH; -LACTATED RINGER'S 1000ML 1,000 ML IV SCH; -LACTATED RINGER'S 1000ML 500 ML IV ONE; -METOCLOPRAMIDE HCL 10 MG TAB PO SCH; +ONDA8TAB6 PO; -ROPIVACAINE 5MG/ML 30 ML 150 MG, BUPIVACAINE/EPINEPHR 0.5% MPF 30 ML, KETOROLAC TROMETH... INFIL SCH; +RXC5 PO
--- NOTE | 2016-07-08 17:19 | DIAGNOSTIC IMAGING REPORT ---
ULTRASOUND VENOUS DOPPLER ULTRASOUND OF THE LEFT LOWER EXTREMITY CLINICAL HISTORY: Left leg pain and swelling COMPARISON STUDY: No previous studies for comparison. FINDINGS: Real-time and color flow Doppler imaging were performed. Flow was seen within the femoral, popliteal and calf veins with no intraluminal thrombus demonstrated. The saphenous vein is patent. There are prominent superficial varicosities in the region the popliteal fossa. The study was somewhat limited from a technical standpoint as the patient was unable to tolerate optimal compression and augmentation due to pain tolerance. IMPRESSION: No evidence of left lower extremity DVT. Electronically signed by: Brandon Alcantar M.D. 07/08/2016 5:17 PM Dictated Date/Time: 07/08/2016 5:16 PM
== END | disposition home or self-care (01) ==
LOC: C.ULTR 16:29
DX: M25.562 Pain in left knee (principal)

== ENCOUNTER 2022-10-07 07:16 | Inpatient (IN) ==
--- NOTE | 2022-09-16 12:51 | PAT Medication Instructions ---
Medication Instructions Date of Service September 16, 2022 Home Medications Medication Instructions Recorded meloxicam 15 mg tablet 15 mg PO DAILY PRN pain #30 tabs 07/16/22 cyclobenzaprine 10 mg tablet 10 mg PO HS PRN muscle spasm #30 09/11/22 tabs gabapentin 400 mg capsule 400 mg PO HS #90 caps 09/14/22 Lactobacillus acidophilus-Bifidobac.animalis 31 billion cell capsule 1 cap PO QAM ascorbic acid (vitamin C) 1,000 mg tablet 1 gm PO DAILY PRN takes in wintertime only multivitamin (Daily Multi-Vitamin tablet) 1 tab PO QAM glucosamine-chondroitin 250 mg-200 mg tablet (Osteo Bi-Flex) 1 tab PO DAILY herbal supplement 1 dose PO DAILY magnesium oxide 500 mg capsule 500 mg PO DAILY PRN muscle spasms meloxicam 15 mg tablet 15 mg PO DAILY PRN pain cyclobenzaprine 10 mg tablet 10 mg PO HS PRN muscle spasm gabapentin 400 mg capsule 400 mg PO HS cholecalciferol (vitamin D3) 125 mcg (5,000 unit) tablet (Vitamin D3) 125 mcg PO QAM gabapentin 300 mg capsule 300 mg PO QAM levothyroxine 50 mcg tablet 50 mcg PO QAM liothyronine 25 mcg tablet 25 mcg PO QAM loratadine 10 mg tablet (Claritin) 10 mg PO DAILY PRN Allergy Symptoms omeprazole 20 mg capsule,delayed release 20 mg PO QAM ASK your surgeon for instructions meloxicam 15 mg tablet 15 mg PO DAILY PRN pain STOP taking 2 weeks before surgery (or as soon as possible if surgery is within 2 weeks) glucosamine-chondroitin 250 mg-200 mg tablet (Osteo Bi-Flex) 1 tab PO DAILY herbal supplement 1 dose PO DAILY DO NOT take the morning of surgery Lactobacillus acidophilus-Bifidobac.animalis 31 billion cell capsule 1 cap PO QAM ascorbic acid (vitamin C) 1,000 mg tablet 1 gm PO DAILY PRN takes in wintertime only multivitamin (Daily Multi-Vitamin tablet) 1 tab PO QAM magnesium oxide 500 mg capsule 500 mg PO DAILY PRN muscle spasms cholecalciferol (vitamin D3) 125 mcg (5,000 unit) tablet (Vitamin D3) 125 mcg PO QAM loratadine 10 mg tablet (Claritin) 10 mg PO DAILY PRN Allergy Symptoms Take morning of surgery With a small sip of water, OTHERWISE NOTHING TO EAT OR DRINK AFTER MIDNIGHT: gabapentin 300 mg capsule 300 mg PO QAM levothyroxine 50 mcg tablet 50 mcg PO QAM liothyronine 25 mcg tablet 25 mcg PO QAM omeprazole 20 mg capsule,delayed release 20 mg PO QAM Take evening before surgery ascorbic acid (vitamin C) 1,000 mg tablet 1 gm PO DAILY PRN takes in wintertime only (if needed) magnesium oxide 500 mg capsule 500 mg PO DAILY PRN muscle spasms (if needed) cyclobenzaprine 10 mg tablet 10 mg PO HS PRN muscle spasm (if needed) gabapentin 400 mg capsule 400 mg PO HS loratadine 10 mg tablet (Claritin) 10 mg PO DAILY PRN Allergy Symptoms (if needed) Other Notes If you have any questions please call us at [phone] or [phone] or [phone] or [phone]
--- NOTE | 2022-09-21 09:40 | Anesthesiology Consultation ---
Date of Service September 21, 2022 Assessment & Plan (1) Encounter for pre-operative examination: - COVID screening: Per assessment on 09/21: No known COVID-19 positive contacts or current COVID-19 related symptoms. No recent Covid positive test result. - Rheumatology visit (09/07/22): "Chronic pain syndrome.. Continue gabapentin... Do not identify indication to pursue immunosuppressive therapies.. I will schedule her back to see me in 6 months however she is welcome to transition back to Dr. Vides who is able to prescribe gabapentin. I do not have this patient on any DMARD therapies at this time... Sanam presents for follow-up. She was diagnosed with Lyme disease approximately 8 years ago and followed with provider in the [facility] treating chronic Lyme disease. She was placed on hydroxychloroquine which seemed to help her joint and back pain. Previously, she would cycle on and off hydroxychloroquine based on her pain levels. At her initial appointment, she denied red, hot, or swollen joints. Have not identified significant inflammatory joint features. We discussed the role of hydroxychloroquine in treating Lyme arthritis. I had concerns about her weight and other features contributing to her chronic pain. She also provided a history of rather abrupt relief in pain after resuming hydroxychloroquine in the past. I have not identified evidence of inflammatory arthritis and have pursue treatment along a chronic pain syndrome pathway. We implemented gabapentin in February 2022. She is noticing improvement with gabapentin and believes that she is on either 600 or 700 mg of gabapentin currently. Unfortunately, she is dealing with right posterior leg discomfort with radiation down the leg and numbness at the foot. This began in June. She just recently completed MRI which showed synovial cyst and she is due to see [facility] this week as well as a clinic in [place] that specializes in stem cell and platelet injections. Currently, no red, hot, or swollen joints. Denies skin rashes. Attempts to exercise by walking 3 times a week." - Patient acceptable risk for surgery pending surgeon-ordered PCP preop evaluation (RAMILA, appt 09/29). Chart Review Chart Review: Patient seen in Pre Admission Testing Teaching & Discussion Pre-Anesthesia Teaching/Discussion Notes: Instructed NPO after midnight before surgery,except medications with 15 cc of water. Medication instructions provided according to the PAT guidelines. History Surgery Operation Date: 10/07/22 12:25 Proposed Procedures p L4-L5 Decompression and Fusion - Abran Bianchi, Height/Weight Height: 5 ft 6.5 in Weight: 111.2 kg Allergies Allergy/AdvReac Type Severity Reaction Status Date / Time No Known Allergies Allergy Unknown Verified 09/16/22 08:00 Medications Home Medications Medication Instructions Recorded Confirmed Last Taken Lactobacillus 1 cap PO QAM 06/23/18 09/16/22 Unknown acidophilus-Bifidobac.animalis 31 billion cell capsule ascorbic acid (vitamin C) 1,000 mg 1 gm PO DAILY PRN takes in 07/25/18 09/16/22 Unknown tablet wintertime only multivitamin (Daily Multi-Vitamin 1 tab PO QAM 07/25/18 09/16/22 Unknown tablet) glucosamine-chondroitin 250 mg-200 1 tab PO DAILY 08/15/21 09/16/22 Unknown mg tablet (Osteo Bi-Flex) herbal supplement 1 dose PO DAILY 08/15/21 09/16/22 Unknown magnesium oxide 500 mg capsule 500 mg PO DAILY PRN muscle spasms 08/15/21 09/16/22 Unknown meloxicam 15 mg tablet 15 mg PO DAILY PRN pain #30 tabs 07/16/22 09/16/22 Unknown cyclobenzaprine 10 mg tablet 10 mg PO HS PRN muscle spasm #30 09/11/22 09/16/22 Unknown tabs gabapentin 400 mg capsule 400 mg PO HS #90 caps 09/14/22 09/16/22 Unknown cholecalciferol (vitamin D3) 125 125 mcg PO QAM 09/16/22 09/16/22 Unknown mcg (5,000 unit) tablet (Vitamin D3) gabapentin 300 mg capsule 300 mg PO QAM 09/16/22 09/16/22 Unknown levothyroxine 50 mcg tablet 50 mcg PO QAM 09/16/22 09/16/22 Unknown liothyronine 25 mcg tablet 25 mcg PO QAM 09/16/22 09/16/22 Unknown loratadine 10 mg tablet (Claritin) 10 mg PO DAILY PRN Allergy Symptoms 09/16/22 09/16/22 Unknown omeprazole 20 mg capsule,delayed 20 mg PO QAM 09/16/22 09/16/22 Unknown release Past Medical History Medical History GERD (gastroesophageal reflux disease) Hypothyroidism Leukopenia PCP monitoring Low back pain Lumbar radiculopathy Lumbar spondylosis Migraines Pain of right sacroiliac joint Post-Lyme disease syndrome Takes multiple herbal supplements to help with this Exercise / Class Metabolic Activity II 4-5 Yardwork/Stairs/Walk up hill Past Family History Family History Mother Anxiety Brain tumor Depression Hypertension Brother Alcohol abuse Father Heart disease Denies family history of Ovarian cancer Prostate cancer Myocardial infarction Breast cancer Colorectal cancer Past Surgical History Surgical History H/O arthroscopic knee surgery History of ankle surgery History of carpal tunnel release History of esophagogastroduodenoscopy (EGD) Hx of colonoscopy Slow to wake up after anesthesia [place] teeth extracted Past Anesthesia History No Family Hx of Anesthesia Complications and Other ("Slow to wake") History of PONV No Hx of PONV and No Hx of Motion Sickness Social History Smoking Status: Never smoker Do You Dip or Chew Tobacco: No Hx Alcohol Use: Yes Alcohol type: beer, wine and hard liquor alcohol intake frequency: a few times a week Hx Substance Use: No substance use type: does not use Review of Systems Patient denies chest pain, shortness of breath, dyspnea on exertion, fever, chills, cough, wheezing, palpitations. Physical Exam Vital Signs VITALS BP 133/86 P 84 TEMP 98.5 SP02 97%RA RESP 18 PHYSICAL Full cervical extension range of motion. Full TMJ range of motion. TMD 3 finger breaths Mallampati Score 2 Dentition: intact, cap (molar) Lungs: clear throughout to auscultation Cardiac: regular rate and rhythm, no murmurs noted Spine: normal Carotid arteries: negative bruit Extremities: no LE edema Lab Results Anesthesia Preop Results Results Anesthesia Widget: WBC 4.71 K/ul (4.8-10.8) L 09/21/22 Hgb 13.4 g/dl (12.0-16.0) 09/21/22 Hct 39.6 % (37.0-47.0) 09/21/22 Plt 268 K/uL (130-400) 09/21/22 Na 139 mmol/L (136-145) 09/21/22 K 4.6 mmol/L (3.5-5.1) 09/21/22 Cl 106 mmol/L (98-107) 09/21/22 CO2 29 mmol/L (21-32) 09/21/22 BUN 22 mg/dl (6-23) 09/21/22 Creat 0.74 mg/dl (0.6-1.2) 09/21/22 Glucose Level 82 mg/dl (70-99(Fasting)) 09/21/22 PT 10.5 Seconds (9.0-12.0) 09/21/22 PTT 26.3 Seconds (21.0-31.0) 09/21/22 INR 1.0 (0.9-1.1) 09/21/22 TSH 1.017 uIu/ml (0.300-4.500) 09/21/22 Free T4 0.45 ng/dl (0.61-1.60) L 09/21/22 Urine Color Dark Yellow 09/21/22 Urine Appearance Clear (Clear) 09/21/22 Urine pH 6.5 (4.5-7.5) 09/21/22 Urine Specific [place] 1.020 (1.000-1.030) 09/21/22 Urine Protein Negative (Negative) 09/21/22 Urine Glucose (UA) Negative (Negative) 09/21/22 Urine Ketones Negative (Negative) 09/21/22 Urine Blood Negative (Negative) 09/21/22 Urine Nitrite Negative (Negative) 09/21/22 Urine Bilirubin Negative (Negative) 09/21/22 Urine Urobilinogen Negative (Negative) 09/21/22 Urine Leukocyte Esterase Negative (Negative) 09/21/22 Blood Type A Positive 09/21/22 Antibody Screen NEGATIVE 09/21/22 Testing Electrocardiogram Date: 09/21/22 NSR at 79bpm. Chest X-Ray Date: 09/21/22 FINDINGS: The lungs are clear. Cardiac silhouette is normal in size. No pleural effusions. No pneumothorax. Metallic anchor noted within the left humeral head. Mild degenerative changes within the thoracic spine. There is a mildly tortuous thoracic aorta. IMPRESSION: No acute process.
[~2022-10-07 07:16] MED LIST changes: -ACET-1138 PO; +ACETAMINOPHEN 500 MG TAB PO SCH; -ASCOCRY2 PO; -ASPCH81X PO; -CAT; -CHOL1000 PO; -CLB200 PO; +CeleBREX 200 MG CAP PO SCH; +GABAPENTIN 600 MG DOSE PO SCH; -IODITIN6 PO; +LR 15ML/HR IV SCH; +LR 60ML/HR IV SCH; -MAGN400T6 PO; -MULTTAB58 PO; -NXM/40 PO; -ONDA8TAB6 PO; -POTA2.5T PO; -RXC5 PO; -SACC250C11 PO; -ZINC50TA36 PO; +ceFAZolin 2000MG 2,000 MG/15 ML SYR IV SCH
[2022-10-07] MEDS ORDERED: ePHEDrine sulfate 50 MG/ML AMP IV PRN (08:07)
[2022-10-07] MEDS ORDERED: fentaNYL citrate PF 100 MCG/2 ML VIAL IV PRN (08:07)
[2022-10-07] MEDS ORDERED: HYDROmorphone INJ 1 MG/ML SYRINGE IV PRN ×2 (08:07→12:59)
[2022-10-07] MEDS ORDERED: ATROPINE SULFATE 0.1 MG/ML 10ML SYR IV PRN (08:07)
[2022-10-07] MEDS ORDERED: SODIUM CHLORIDE 0.9% IV PRN (08:07)
[2022-10-07] MEDS ORDERED: ONDANSETRON INJ 2 MG/ML 2 ML VIAL IV PRN ×2 (08:07→12:59)
[2022-10-07] MEDS ORDERED: PROMETHAZINE HCL IV PRN (08:07)
[2022-10-07] MEDS ORDERED: fentaNYL citrate PF 100 MCG/2 ML VIAL ONE ×2 (08:13→09:35)
[2022-10-07] MEDS ORDERED: MIDAZOLAM HCL 1 MG/ML 2ML VIAL ONE (08:13)
--- NOTE | 2022-10-07 08:36 | History & Physical Bridge Note ---
Date of Service October 07, 2022 History & Physical Bridge Note I have examined the patient, reviewed the History & Physical and in the interval since the performance of the History & Physical I have noted the following changes of clinical significance: no changes noted
--- NOTE | 2022-10-07 08:37 | History & Physical Report ---
Date of Service October 07, 2022 Assessment & Plan (1) Neurogenic claudication due to lumbar spinal stenosis: Plan: L4-L5 decompression and fusion History of Present Illness Chief Complaint: Back and leg pain Primary Care Provider: Anita Vides DO This is a 49-year-old female who presents with worsening chronic persistent back and leg pain and failing since course of nonoperative care is here for surgical invention. Allergies Allergy/AdvReac Type Severity Reaction Status Date / Time No Known Allergies Allergy Unknown Verified 10/07/22 07:59 Home Medications Medication Instructions Recorded Confirmed Type Lactobacillus 1 cap PO QAM 06/23/18 10/07/22 History acidophilus-Bifidobac.animalis 31 billion cell capsule ascorbic acid (vitamin C) 1,000 mg 1 gm PO DAILY PRN takes in 07/25/18 10/07/22 History tablet wintertime only multivitamin (Daily Multi-Vitamin 1 tab PO QAM 07/25/18 10/07/22 History tablet) glucosamine-chondroitin 250 mg-200 1 tab PO DAILY 08/15/21 10/07/22 History mg tablet (Osteo Bi-Flex) herbal supplement 1 dose PO DAILY 08/15/21 10/07/22 History magnesium oxide 500 mg capsule 500 mg PO DAILY PRN muscle spasms 08/15/21 10/07/22 History meloxicam 15 mg tablet 15 mg PO DAILY PRN pain #30 tabs 07/16/22 10/07/22 Rx cyclobenzaprine 10 mg tablet 10 mg PO HS PRN muscle spasm #30 /05/3110/07/22 Rx tabs gabapentin 400 mg capsule 400 mg PO HS #90 caps 09/14/22 10/07/22 Rx cholecalciferol (vitamin D3) 125 125 mcg PO QAM 09/16/22 10/07/22 History mcg (5,000 unit) tablet (Vitamin D3) gabapentin 300 mg capsule 300 mg PO QAM 09/16/22 10/07/22 History levothyroxine 50 mcg tablet 50 mcg PO QAM 09/16/22 10/07/22 History liothyronine 25 mcg tablet 25 mcg PO QAM 09/16/22 10/07/22 History (Cytomel) loratadine 10 mg tablet (Claritin) 10 mg PO DAILY PRN Allergy Symptoms 09/16/22 10/07/22 History omeprazole 20 mg capsule,delayed 20 mg PO QAM 09/16/22 10/07/22 History release Past Med/Surg History Medical History GERD (gastroesophageal reflux disease) Hypothyroidism Leukopenia Low back pain Lumbar radiculopathy Lumbar spondylosis Migraines Pain of right sacroiliac joint Post-Lyme disease syndrome Surgical History H/O arthroscopic knee surgery History of ankle surgery History of carpal tunnel release History of esophagogastroduodenoscopy (EGD) Hx of colonoscopy Slow to wake up after anesthesia [place] teeth extracted Family History Mother Anxiety Brain tumor Depression Hypertension Brother Alcohol abuse Father Heart disease Denies family history of Ovarian cancer Prostate cancer Myocardial infarction Breast cancer Colorectal cancer Social History Smoking Status: Never smoker Second Hand Exposure: No; Do You Dip or Chew Tobacco: No; Tobacco Cessation Education Requested by Patient: No Hx Alcohol Use: Yes Alcohol type: beer, wine and hard liquor Hx Substance Use: No Preferred Language: Bulgarian Communication Ability: Effective Visual Impairment: No Limitations Hearing Ability: Normal Outpatient Therapist Required: No Beliefs That Will Affect Care: None marital status: Current Living Situation: Spouse and Family Current Living Situation Comment: spouse and son current occupational status: employed current occupation: [employer] Other Information That Helps Us Care for You: No Feels Safe at Home: Yes Safety Concerns: Feels Safe At This Time Childhood Exposure to Second-Hand Smoke: No Dental Care, Regularly: Yes Physical Activity Frequency: 1-2 Times per Week Seatbelt Use: sometimes Sunscreen Use: Yes Assistive Devices: Other Assistive Devices Comment: retainer for teeth at night only Physical Exam Physical Exam: Patient is alert and oriented Heart regular rhythm Lungs clear Results & Data Results & Data Vital Signs (Past 12 Hours) Vital Signs Temp Pulse Resp BP Pulse Ox O2 Del Method 10/07/22 08:05 36.8 C 74 18 174/99 H 99 Room Air
[2022-10-07] MEDS ORDERED: PROPOFOL IV EMULSION 10 MG/ML 20 ML VIAL IV ONE (08:47)
[2022-10-07] MEDS ORDERED: GLYCOPYRROLATE 0.2 MG/ML VIAL ONE (08:47)
[2022-10-07] MEDS ORDERED: ROCURONIUM BROMIDE 10 MG/ML 5 ML VIAL IV ONE ×2 (08:47→10:12)
[2022-10-07] MEDS ORDERED: LIDOCAINE 2% 2 ML VIAL/AMP(20MG/ML) INFIL ONE (08:47)
[2022-10-07] MEDS ORDERED: ONDANSETRON INJ 2 MG/ML 2 ML VIAL ONE (08:47)
[2022-10-07] MEDS ORDERED: DEXAMETHASONE SOD INJ 4 MG/ML VIAL ONE ×2 (08:47→09:28)
[2022-10-07] MEDS ORDERED: ceFAZolin 330 MG/ML 1 GM VIAL ONE (08:59)
[2022-10-07] MEDS ORDERED: BUPIVACAINE/EPINEPHRINE 0.25% 1:200,000 30 ML VIAL ONE (08:59)
[2022-10-07] MEDS ORDERED: FLOSEAL HEMOSTATIC MATRIX 10ML TOP ONE (09:35)
[2022-10-07] MEDS ORDERED: HYDROmorphone INJ 2 MG/ML SYR/VIAL ONE (10:16)
[2022-10-07] MEDS ORDERED: SUGAMMADEX SODIUM 200 MG/2 ML VIAL IV ONE (10:48)
--- NOTE | 2022-10-07 10:56 | Operative Report ---
Post Operative Report Pre & Post Diagnosis Operation Date: 10/07/22 09:05 Pre-Op Diagnosis: Neurogenic claudication due to lumbar spinal stenosis Post-Op Diagnosis: Neurogenic claudication due to lumbar spinal stenosis I identified the patient and participated in the time-out.: Yes Procedure Operation Date: 10/07/22 09:05 Actual Procedures #1 lumbar decompression bilateral medial facetectomies and foraminotomies L3-L4 L4-5. #2 posterior spinal fusion L4-5. #3 placement posterior instrumentation L4-5. #4 interbody fusion L4-5. #5 placement of Spira 14 x 26 mm x 2 at L4-5. #6 placement locally harvested morselized autograft in the posterior gutters. #7 placement of I factor in the interbody space combined with V toss in the posterior gutters. Surgeon Abran Bianchi, DO Prepper Arti Macedo Estimated Blood Loss 100 Findings See Below The patient is 5 foot 7 weighing over 111 kg with a BMI in excess of 38. Patient's body habitus did contribute to significant technical difficulty requiring her deeper retractors longer instruments in order to perform her surgery. This at least 50% increased operative time. Specimens None Indications This is a 57-year-old female who presents above-mentioned diagnosis after failing course of nonoperative care is here for surgical invention. Description of Procedure Patient was met and identified informed consent obtained. Patient was then taken to the operative suite underwent a patient placed in a prone position the [facility] top David frame. All bony promises well-padded eyes inspected to ensure no external pressure placed upon the bed at this point the lumbar spine was prepped and draped in a sterile fashion. Sharp dissection with the assistance of Bovie cautery to form down to and exposing the lamina and transverse processes of L4-5 bilaterally. From caudal cephalad fashion complete laminectomy of L4 partial laminectomy L3 was performed occluding bilateral medial facetectomies and foraminotomies addressing severe spinal stenosis as well as a massive facet cyst on the right. After complete decompression pedicle screws were placed in L4-L5 bilaterally with assistance of fluoroscopy and the properly sized darinel placed. By way of a trans foraminal approach on the right and discectomy was performed endplates curetted to subcortical bleeding bone and a 14 x 26 mm Spira cage with I factor tapped in position. Then proceeded the left transforaminal space. I completed the discectomy and place curetted to subcortical mean bone and a second 14 x 26 mm Spira cage with I factor tapped in position. The rods were locked in final position bilaterally. The transverse processes of L for L5 burred to subcortically bone. I factor amount of the test and locally harvested morselized autograft was placed in the posterior gutters. 15 round LANG inserted. The incision was then closed with 1 Vicryl to fascia 2-0 Vicryl subcutaneously and 4 Monocryl for final skin closure. Steri-Strips sterile dressing placed. Patient awakened taken to PACU in stable condition. Arti Macedo was present at the entire procedure and while the patient positioning complex portion of the surgery and final skin closure. I attest to the content of the Intraoperative Record and any orders documented therein. Any exceptions are noted below.
--- NOTE | 2022-10-07 12:29 | Fluoroscopy Report ---
INTRAOPERATIVE RADIOGRAPHS CLINICAL HISTORY: L4-L5 spinal fusion. Fluoro time: 19 seconds Ka,r: 19.37 mGy FINDINGS: 2 spot fluoroscopic views of the lumbar spine are presented. There has been discectomy at L 4-L5 with laminectomy and posterior fusion at this level. Interpedicular screws are in place. The ort hopedic hardware appears intact. IMPRESSION: Intraoperative images from lumbar spinal fusion surgery as above. Electronically signed by: Ryan Castro M.D. 10/07/2022 12:28 PM
[2022-10-07] MEDS ORDERED: MAGNESIUM HYDROXIDE SUSP 30 ML UDC PO PRN (12:59)
[2022-10-07] MEDS ORDERED: FAMOTIDINE 20 MG TAB PO PRN (12:59)
[2022-10-07] MEDS ORDERED: ALUMINUM/MAGNESIUM SUSP 30 ML UDC PO PRN (12:59)
[2022-10-07] MEDS ORDERED: PROMETHAZINE HCL 12.5 MG in SODIUM CHLORIDE 0.9% 50 ML IV PRN (12:59)
[2022-10-07] MEDS ORDERED: bisacodyL 10 MG SUPP PR PRN (12:59)
[2022-10-07] MEDS ORDERED: hydrOXYzine HCl 25 MG TAB PO PRN (12:59)
[2022-10-07] MEDS ORDERED: LORazepam 2 MG/1 ML VIAL IV PRN (12:59)
[2022-10-07] MEDS ORDERED: ACETAMINOPHEN 1,000 MG/100 ML VIAL IV PRN (12:59)
[2022-10-07] MEDS ORDERED: DO NOT ADMINISTER PNEUMOCOCCAL VACCINE PRN (12:59)
[2022-10-07] MEDS ORDERED: diphenhydrAMINE Capsule 25 MG CAP PO PRN (12:59)
[2022-10-07] MEDS ORDERED: ONDANSETRON 4 MG OD TAB PO PRN (12:59)
[2022-10-07] MEDS ORDERED: LORATADINE 10 MG TAB PO PRN (12:59)
[2022-10-07] MEDS ORDERED: NALOXONE HCL 0.4 MG/1 ML VIAL/CARP IV PRN (12:59)
[2022-10-07] MEDS ORDERED: DO NOT ADMINISTER FLU VACCINE PRN (12:59)
[2022-10-07] MEDS ORDERED: SOD PHOSPHATE/SOD BIPHOSPHATE ENEMA 132 ML BTL PR PRN (12:59)
[2022-10-07] MEDS ORDERED: LORazepam 0.5 MG TAB PO PRN (12:59)
[2022-10-07] MEDS ORDERED: traMADol HCL 50 MG TABLET PO PRN (12:59)
[2022-10-07] MEDS ORDERED: METOCLOPRAMIDE HCL INJ 5 MG/ML 2 ML VIAL IV PRN (12:59)
[2022-10-07] MEDS ORDERED: ACETAMINOPHEN 500 MG TAB PO PRN (12:59)
[2022-10-07] MEDS: LACTATED RINGER'S 1,000 ML IV SCH ×2 (13:00→18:09)
--- NOTE | 2022-10-07 13:52 | Hospitalist Consultation ---
Date of Consultation October 07, 2022 Assessment & Plan (1) Neurogenic claudication due to lumbar spinal stenosis: Pain/VTE/Pain management by primary orthopedic team (2) Hypothyroidism: TSH WNL 09/21 Continue levothyroxine and Cytomel (3) GERD (gastroesophageal reflux disease): Switch omeprazole to pantoprazole per hospital formulary (4) Post-Lyme disease syndrome: Continue gabapentin (5) Hypomagnesemia: Repeat level with AM labs Plan Thank youfor the consult we will follow along with you History of Present Illness Reason for Consultation: Post op medical management Attending Physician: Abran Bianchi DO History of Present Illness Sanam Abarca is a 57 year old female POD #0 lumbar spinal decompression for back pain and bilateral radicular pains. Doing well post operatively without radicular symptoms. No acute concerns or question from the patient. Chronic medical conditions of GERD, hypothyroidism, post lyme disease well controlled as outpatient on current medications. No current heartburn or epigastric pain. Allergies Allergy/AdvReac Type Severity Reaction Status Date / Time No Known Allergies Allergy Unknown Verified 10/07/22 07:59 Home Medications Medication Instructions Recorded Confirmed Type Lactobacillus 1 cap PO QAM 06/23/18 10/07/22 History acidophilus-Bifidobac.animalis 31 billion cell capsule ascorbic acid (vitamin C) 1,000 mg 1 gm PO DAILY PRN takes in 07/25/18 10/07/22 History tablet wintertime only multivitamin (Daily Multi-Vitamin 1 tab PO QAM 07/25/18 10/07/22 History tablet) glucosamine-chondroitin 250 mg-200 1 tab PO DAILY 08/15/21 10/07/22 History mg tablet (Osteo Bi-Flex) herbal supplement 1 dose PO DAILY 08/15/21 10/07/22 History magnesium oxide 500 mg capsule 500 mg PO DAILY PRN muscle spasms 08/15/21 10/07/22 History meloxicam 15 mg tablet 15 mg PO DAILY PRN pain #30 tabs 07/16/22 10/07/22 Rx cyclobenzaprine 10 mg tablet 10 mg PO HS PRN muscle spasm #30 09/11/22 10/07/22 Rx tabs gabapentin 400 mg capsule 400 mg PO HS #90 caps 09/14/22 10/07/22 Rx cholecalciferol (vitamin D3) 125 125 mcg PO QAM 09/16/22 10/07/22 History mcg (5,000 unit) tablet (Vitamin D3) gabapentin 300 mg capsule 300 mg PO QAM 09/16/22 10/07/22 History liothyronine 25 mcg tablet 25 mcg PO QAM 09/16/22 10/07/22 History (Cytomel) loratadine 10 mg tablet (Claritin) 10 mg PO DAILY PRN Allergy Symptoms 09/16/22 10/07/22 History omeprazole 20 mg capsule,delayed 20 mg PO QAM 09/16/22 10/07/22 History release levothyroxine 50 mcg tablet 50 mcg PO QAM #90 tabs 10/07/22 Rx oxycodone 5 mg tablet 5 mg PO Q6H PRN pain #30 tabs 10/07/22 Rx tramadol 50 mg tablet 50 mg PO Q6H PRN pain, moderate 10/07/22 Rx #30 tabs Patient History Medical History GERD (gastroesophageal reflux disease) Hypothyroidism Leukopenia Low back pain Lumbar radiculopathy Lumbar spondylosis Migraines Pain of right sacroiliac joint Post-Lyme disease syndrome Surgical History H/O arthroscopic knee surgery History of ankle surgery History of carpal tunnel release History of esophagogastroduodenoscopy (EGD) Hx of colonoscopy Slow to wake up after anesthesia [place] teeth extracted Family History Mother Anxiety Brain tumor Depression Hypertension Brother Alcohol abuse Father Heart disease Denies family history of Ovarian cancer Prostate cancer Myocardial infarction Breast cancer Colorectal cancer Social History Smoking Status: Never smoker Second Hand Exposure: No; Do You Dip or Chew Tobacco: No; Hx Alcohol Use: Yes Alcohol type: beer, wine and hard liquor Hx Substance Use: No Preferred Language: Arabic Communication Ability: Effective Visual Impairment: No Limitations Hearing Ability: Normal Dog Raiser Required: No Beliefs That Will Affect Care: None marital status: Current Living Situation: Spouse and Family Current Living Situation Comment: spouse and son current occupational status: employed current occupation: [employer] Feels Safe at Home: Yes Childhood Exposure to Second-Hand Smoke: No Dental Care, Regularly: Yes Physical Activity Frequency: 1-2 Times per Week Seatbelt Use: sometimes Sunscreen Use: Yes Assistive Devices: Cane, Walker and Wheelchair Review of Systems Review of Systems: All systems reviewed & are unremarkable except as noted in HPI & below Physical Exam Constitutional: WD/WN, vitals as above Eyes: + anicteric sclerae; normal pupil size ENMT: external ear and nose normal, oropharynx normal Respiratory: normal respiratory effort, lungs clear to auscultation Cardiovascular: RRR, no murmur, no edema Gastrointestinal (Abdomen): normal bowel sounds, soft, nontender, no hepatosplenomegaly Skin: no rashes, warm and dry Neurologic: Sensation intact in toes b/l , plantar/dorsiflexion 5/5 b/l Psychiatric: A+Ox3, euthymic affect Results & Data Results & Data Vital Signs (Past 12 Hours) Vital Signs Temp Pulse Pulse Resp BP Pulse Ox O2 Del Method 10/07/22 13:15 77 18 148/95 H 100 Nasal Cannula 10/07/22 12:47 36.3 C L 76 16 143/82 H 99 Room Air 10/07/22 12:30 71 12 140/88 100 Nasal Cannula 10/07/22 12:15 69 12 138/93 100 Nasal Cannula 10/07/22 12:00 36.2 C L 72 12 112/76 98 Nasal Cannula 10/07/22 11:30 75 16 110/74 97 Oxymask 10/07/22 11:50 75 14 117/79 93 Room Air 10/07/22 11:40 78 16 115/71 94 Oxymask 10/07/22 11:20 79 14 114/74 95 Oxymask 10/07/22 11:12 36.3 C L 81 12 127/65 99 Oxymask 10/07/22 08:05 36.8 C 74 18 174/99 H 99 Room Air O2 Flow Rate 10/07/22 13:15 2 10/07/22 12:47 2 10/07/22 12:30 2 10/07/22 12:15 2 10/07/22 12:00 2 10/07/22 11:30 6 10/07/22 11:50 10/07/22 11:40 4 10/07/22 11:20 6 10/07/22 11:12 10 10/07/22 08:05 PG Care Time/CCT Total # of Minutes Spent Total Time Spent with Patient: Total time spent is greater than 50% in coordination of care (as documented) at patient's floor/unit and/or counseling patient: Coding Level of Care Code 75466 IN/OBS CONSULT LVL 3,45M Diagnoses Neurogenic claudication due to lumbar spinal stenosis M48.062 Hypothyroidism E03.9 GERD (gastroesophageal reflux disease) K21.9 Post-Lyme disease syndrome B94.8 Hypomagnesemia E83.42
--- NOTE | 2022-10-07 14:26 | Anesthesiology Progress Note ---
Date of Service October 07, 2022 Anesthesia Post Procedure Vital Signs Vital Signs: Temp Pulse Pulse Resp BP Pulse Ox O2 Del Method 10/07/22 13:15 77 18 148/95 H 100 Nasal Cannula 10/07/22 12:47 36.3 C L 76 16 143/82 H 99 Room Air 10/07/22 12:30 71 12 140/88 100 Nasal Cannula 10/07/22 12:15 69 12 138/93 100 Nasal Cannula 10/07/22 12:00 36.2 C L 72 12 112/76 98 Nasal Cannula 10/07/22 11:30 75 16 110/74 97 Oxymask 10/07/22 11:50 75 14 117/79 93 Room Air 10/07/22 11:40 78 16 115/71 94 Oxymask 10/07/22 11:20 79 14 114/74 95 Oxymask 10/07/22 11:12 36.3 C L 81 12 127/65 99 Oxymask 10/07/22 08:05 36.8 C 74 18 174/99 H 99 Room Air O2 Flow Rate 10/07/22 13:15 2 10/07/22 12:47 2 10/07/22 12:30 2 10/07/22 12:15 2 10/07/22 12:00 2 10/07/22 11:30 6 10/07/22 11:50 10/07/22 11:40 4 10/07/22 11:20 6 10/07/22 11:12 10 10/07/22 08:05 Pain Intensity Right Buttock: Pain Intensity: 0 Back: Pain Intensity: 8 Transfer of Care Handoff Completed per policy Notes Mental Status: alert / awake / arousable and participated in evaluation Patient Amnestic to Procedure: Yes Nausea / Vomiting: adequately controlled Pain: adequately controlled Airway Patency, RR, SpO2: stable & adequate BP & HR: stable & adequate Hydration State: stable & adequate Anesthetic Complications: no major complications apparent and Pt Satisfied with anesthetic care
[2022-10-07] MEDS: HYDROmorphone INJ 0.5 MG/0.5 ML SYR IV PRN ×2 (15:27→19:41)
[2022-10-07] MEDS: GABAPENTIN 400 MG CAP PO SCH (20:21)
[2022-10-07] MEDS: DOCUSATE SODIUM/SENNA 50/8.6MG TAB PO SCH (20:21)
[2022-10-07] MEDS: ceFAZolin 2000MG 2,000 MG/15 ML SYR IV SCH (20:21)
[2022-10-07] MEDS: oxyCODONE HCL IR 5 MG TAB (IMMEDIATE RELEASE) PO PRN (21:44)
[2022-10-08] MEDS: ceFAZolin 2000MG 2,000 MG/15 ML SYR IV SCH (00:11)
[2022-10-08] MEDS: oxyCODONE HCL IR 5 MG TAB (IMMEDIATE RELEASE) PO PRN ×5 (04:28→22:02)
--- OUTSIDE RECORDS SUMMARY | 2022-10-08 05:41 | External Medical Summary | Summary of Care ---
Author Name Unknown Organization [facility] [address] [place] [address] Phone [phone] Care Team Providers Care Returned Item Clerk Name Role Phone Anita Vides DO Primary Care Provider + Encounter Details Date Type Department Care Team Description 08/24/2022 Orders Only Radiology, [facility] [address] [place] [address] Requisition, External Radiology [address] [place] [address] Encounter for screening mammogram for breast cancer* Allergies No known active allergiesdocumented as of this encounter (statuses as of 08/24/2022) Medications Medication Sig Dispensed Refills Start Date End Date Status MULTIVITAMINS PO CAPS Take 1 Cap by mouth daily. 30 Cap 5 03/09/2014 Active Aspirin 81 MG Tablet Take 1 Tab by mouth daily. 0 Active Magnesium 500 MG Capsule Take 500 mg by mouth daily. 0 Active Cholecalciferol (VITAMIN D3) 2000 UNITS Tablet Take 2,000 Units by mouth daily. 0 Active Potassium 95 MG TABS Take 1 Tab by mouth daily. 0 Active Esomeprazole Magnesium (NEXIUM) 40 MG CPDR Take 1 Cap by mouth daily before breakfast. 30 Cap 0 05/15/2016 Active zinc gluconate 50 MG Tablet Take 50 mg by mouth daily. 0 Active Ascorbic Acid (VITAMIN C) 1000 MG Tablet Take 1,000 mg by mouth daily. 0 Active minocycline (MINOCIN) 100 MG Capsule Take 100 mg by mouth daily at noon. 0 12/12/2018 Active documented as of this encounter (statuses as of 08/24/2022) Active Problems Problem Noted Date History of arthroscopic procedure on sindy manuela 08/17/2014 Overview: Lt-07/03/14 Other chronic allergic conjunctivitis Ankle joint pain 09/18/2011 Overview: Rt---had fall 11/18--Shaun --had MRI ---fu 09/23/11----had sg end 09/19 Migraine with aura 01/28/2010 DIFFUS CYSTIC MASTOPATHY 10/25/2007 Screening for malignant neoplasm of cerv ix 12/29/2005 Overview: Neg--03/22;; : no IEL.--[id number].--10/25/2008--neg,Rpt in 3 yrs.(unless chg H) Pap : -, -, - neg IEL, had kiya in . Screening for malignant neoplasm of amita st 12/29/2005 Overview: NEG--11/18;; 11/17--same 10/02/2008 [facility]---neg 09-15--[facility]--same. Mammogram: 07-14-05: scattered fibroglandular densities.Baseline study. FAM HX-DIABETES MELLITUS 12/29/2005 Overview: Mom.HTN Obesity, Class I, BMI 30-34.9 12/29/2005 Overview: 10/25/2008--BMI: 27.53 kg/m 10/25/2007: BMI: 31.09 kg/m Ht/wt S shoes. : FBS 81, TSH 2, lipids 197/81/68/113. BMI: 32.01 kg/m INFORMATION 12/29/2005 Overview: 05/21-neg RF, ,connie, nl fbs. 10/25/2008--CPE-(mar ht) BMI: 27.53 kg/m. Adacel--11-21-06. Pt had hep B series and had titer 1-2 yrs ago, last PPD was feb 2005- neg per pt. ESOPHAGEAL REFLUX(aka REFLUX) 01/22/2004 Overview: 03/22--chg pril to prevacid--09/19--imp Ct prilosec--mar 19- neg H pylori - nml cbc, lft, glucose 88.--Ba Swallow-mod Reflux to level upper esophagus.small sliding type Hiatal hernia. April 13: Nml Us abd., nml CBC, CMP,amylase. Nml GB US . Duodenitis On EGD 1985. Per pt at [facility] hosp. Other allergic rhinitis 08/31/2003 Overview: Spring-fall sinus sg Reeseo 07/31/11 ICD-10 update of inactive term documented as of this encounter (statuses as of 08/24/2022) Resolved Problems Problem Noted Date Resolved Date Encounter for supervision of other normal pregna ncy 12/19/2001 05/16/2002 Overview: ICD-10 update of inactive term Elderly multigravida with an tepartum condition or complication 10/07/2001 05/16/2002 POLYCYSTIC OVARIES - Dr Cee 0 10/07/2001 documented as of this encounter (statuses as of 08/24/2022) Immunizations Name Administration Dates Next Due Seasonal Influenza, Split, I IV3, With Preserve, Inj 03/26/2011(Deferred: Patient Refused),10/25/2008 TDAP (age 11 and older)(Adacel) 12/29/2005 documented as of this encounter Social History Tobacco Use Types Packs/Day Years Used Date Smoking Tobacco: Never Smokeless Tobacco: Never Alcohol Use Standard Drinks/Week Comments Yes 0 (1 standard drink = 0.6 oz pur e alcohol) rare Sex Assigned at Date Recorded Not on file Job Start Date Occupation Industry Not on file Not on file Not on file documented as of this encounter Plan of Treatment Upcoming Encounters Date Type Specialty Care Team Description 09/28/2022 Appointment Radiology Scheduled Orders Name Type Priority Associated Diagnoses Orde r Schedule MAMMOGRAM SCREENING DIA BILATERAL Medical Imaging Routine Encounter for screening mammogram for breast cancer Expected: 08/24/2022, Expires: 09/25/2023 Scheduled Procedures Name Priority Associated Diagnoses Date/Ti me COLONOSCOPY FLEXIBLE PROXIMA L DIAGNOSTIC Recall Encounter for screening colonoscopy Health Maintenance Due Date Last Done Comments Hepatitis B (1 of 3 - 3-dose series) 1964 COVID-19 Vaccine (#1) 01/26/1965 HIV Screening 07/28/1979 Hepatitis C Screening 1982 Cologuard 2009 Sigmoidoscopy 2009 Fecal Occult Blood Test 03/26/2012 03/26/2011 Zoster Vaccines (1 of 2) 2014 Lipid Panel 01/20/2015 01/20/2010, 03/26/2006 Depression Screening, Annual for Pts 12 and Over 08/18/2015 08/17/2014 DTaP,Tdap,and Td Vaccines (2 - Td or Tdap) 12/30/2015 12/29/2005 Pap Smear 03/26/2016 03/26/2011, 03/11, 10/25/2008, Additional history exists Diabetes Screening 05/16/2019 05/15/2016, 1 , 05/06/2012, Additional history exists Mammogram 09/08/2022 09/08/2021, 08/10, 09/01/2019, Additional history exists Influenza Vaccine (FLU shot) (#1) 2022 10/25/2008 Colonoscopy 08/01/2025 08/02/2015, 08/02/2015 Colorectal Cancer Screening 08/01/2025 GARDASIL-HPV IMMUNIZATION SERIES Aged Out No longer eligible based on patient's age to complete this topic MENINGOCOCCAL (MENACTRA/MENVEO) Aged Out No longer eligible based on patient's age to complete this topic Pneumococcal Vaccine: Pediatrics (0 to 5 Years) and At-Risk Patients (6 to 64 Years) Aged Out No longer eligible based on patient's age to complete this topic documented as of this encounter Medical Devices Not on filedocumented as of this encounter Visit Diagnoses Diagnosis Encounter for screening mammogram for breast cancer- Primary documented in this encounter Care Teams Returned Item Clerk Relationship Specialty Start Date End Date Anita Vides, DO [address] [place] [address] PCP - General Family Medicine 08/22/22 documented as of this encounter
--- OUTSIDE RECORDS SUMMARY | 2022-10-08 05:41 | External Medical Summary | Summary of Care ---
Author Name Unknown Organization [facility] Address [address] [place] [address] Phone [phone] Care Team Providers Care Sanitizer Name Role Phone Anita Vides DO Primary Care Provider + Reason for Referral * Precert (Within 10 days (routine)) - Authorized Specialty Diagnoses / Procedures Referred By Contac t Referred To Contact Radiology Diagnoses Lumbar facet joint syndrome Procedures MRI L SPINE WO CONTRAST Jaziel Real PA-C [address] [place] [id number] Referral ID Status Reason Start Date Expiration Date V isits Requested Visits Authorized [id number] Authorized 08/04/2022 01/31/[phone] Reason for Visit * Precert (Within 10 days (routine)) - Authorized Specialty Diagnoses / Procedures Referred By Contac t Referred To Contact Radiology Diagnoses Lumbar facet joint syndrome Procedures MRI L SPINE WO CONTRAST Jaziel Real PA-C [address] [place] [id number] Referral ID Status Reason Start Date Expiration Date V isits Requested Visits Authorized [id number] Authorized 08/04/2022 01/31/[phone] Encounter Details Date Type Department Care Team Description 08/22/2022 Hospital Encounter Radiology, [address] [address] Arrived Allergies No known active allergiesdocumented as of this encounter (statuses as of 08/23/2022) Medications Medication Sig Dispensed Refills Start Date [...] as of this encounter (statuses as of 08/23/2022) Active Problems Problem Noted Date History of arthroscopic procedure on sindy ulder 08/17/2014 Overview: Lt-07/03/14 Other chronic allergic conjunctivitis Ankle joint pain 09/18/2011 Overview: Rt---had fall 11/18--Shaun --had MRI ---fu 09/23/11----had sg end 09/19 Migraine with aura 01/28/2010 DIFFUS CYSTIC MASTOPATHY 10/25/2007 Screening for malignant neoplasm of cerv ix 12/29/2005 Overview: Neg--03/22;; : no IEL.--[id number].--10/25/2008--neg,Rpt in 3 yrs.(unless chg H) Pap : 06-05, -, - neg IEL, had kiya in . Screening for malignant neoplasm of amita st 12/29/2005 Overview: NEG--11/18;; 11/17--same 10/02/2008 [facility]---neg 09-15--[facility]--same. Mammogram: 07-14-05: scattered fibroglandular densities.Baseline study. FAM HX-DIABETES MELLITUS 12/29/2005 Overview: Mom.HTN Obesity, Class I, BMI 30-34.9 12/29/2005 Overview: 10/25/2008--BMI: 27.53 kg/m 10/25/2007: BMI: 31.09 kg/m Ht/wt S shoes. : FBS 81, TSH 2, lipids 197/81/68/113. BMI: 32.01 kg/m INFORMATION 12/29/2005 Overview: 05/21-neg RF, ,connie, nl fbs. 10/25/2008--CPE-(mar ht) BMI: 27.53 kg/m. Adacel--12-29-05. Pt had hep B series and had [...] Duodenitis On EGD 1985. Per pt at [facility] hosp. Other allergic rhinitis 08/31/2003 Overview: Spring-fall sinus sg DrKao 07/31/11 ICD-10 update of inactive term documented as of this encounter (statuses as of 08/23/2022) Resolved Problems Problem Noted Date Resolved Date Encounter for supervision of other normal pregna ncy 12/19/2001 05/16/2002 Overview: ICD-10 update of inactive term Elderly multigravida with an tepartum condition or complication 10/07/2001 05/16/2002 POLYCYSTIC OVARIES - Dr Cee 0 10/07/2001 documented as of this encounter (statuses as of 08/23/2022) Immunizations Name Administration Dates Next Due Seasonal [...] as of this encounter Plan of Treatment Pending Results Name Type Priority Associated Diagnoses Date /Time MRI L SPINE WO CONTRAST Medical Imaging Routine Lumbar facet joint syndrome 08/22/2022 1:47 PM EDT Scheduled Orders Name Type Priority Associated Diagnoses Orde r Schedule MRI L SPINE WO CONTRAST Medical Imaging Routine Lumbar facet joint syndrome 1 Occurrences starting 08/22/2022 until 08/22/2022 Scheduled Procedures Name Priority Associated Diagnoses Date/Ti [...] as of this encounter Visit Diagnoses Diagnosis Lumbar facet joint syndrome documented in this encounter Care Teams Sanitizer Relationship Specialty Start Date End Date Anita Vides, DO [address] [facility] [place] [address] PCP - General Family Medicine 08/22/22 documented as of this encounter
--- OUTSIDE RECORDS SUMMARY | 2022-10-08 05:41 | External Medical Summary | Summary of Care ---
Author [place] [address] Care Team Providers Care Video Systems Engineer Name Role Phone Maya Martin PA-C Primary Care Pro vider Encounter Details Date Type Department Care Team Description 08/15/2020 Orders Only Radiology, [facility] [address] [place], [place] [id number] Requisition, External Radiology [address] [place] [address] Encounter for screening mammogram for malignant neoplasm of breast* Allergies No Known Active Allergiesdocumented as of this encounter (statuses as of 08/15/2020) Medications Medication Sig Dispensed Refills Start Date [...] as of this encounter (statuses as of 08/15/2020) Active Problems Problem Noted Date History of arthroscopic procedure on sindy manuela 08/17/2014 Overview: Lt-07/03/14 Other chronic allergic conjunctivitis Ankle joint pain 09/18/2011 Overview: Rt---had fall 11/18--Shaun --had MRI ---fu 09/23/11----had sg end 09/19 Migraine with aura 01/28/2010 DIFFUS CYSTIC MASTOPATHY 10/25/2007 Screening for malignant neoplasm of cerv ix 12/29/2005 Overview: Neg--03/22;; : no IEL.--[id number].--10/25/2008--neg,Rpt in 3 yrs.(unless chg H) Pap : -, -, 09-09 neg IEL, had kiya in . Screening for malignant neoplasm of amita st 12/29/2005 Overview: NEG--11/18;; 11/17--same 10/02/2008 [facility]neg 09-15--[facility]. Mammogram: 07-14-05: scattered fibroglandular densities.Baseline study. FAM [...] Duodenitis On EGD 1985. Per pt at [facility]. Other allergic rhinitis 08/31/2003 Overview: Spring-fall sinus sg Kao 07/31/11 ICD-10 update of inactive term documented as of this encounter (statuses as of 08/15/2020) Resolved Problems Problem Noted Date Resolved Date Encounter for supervision of other normal pregna ncy 12/19/2001 05/16/2002 Overview: ICD-10 update of inactive term Elderly multigravida with an tepartum condition or complication 10/07/2001 05/16/2002 POLYCYSTIC OVARIES - Dr Cee 0 10/07/2001 documented as of this encounter (statuses as of 08/15/2020) Immunizations Name Administration Dates Next Due Seasonal Influenza, Split, I IV3, With Preserve, Inj 03/26/2011(Deferred: Patient Refused),10/25/2008 TDAP (age 11 and older)(Adacel) 12/29/2005 documented as of this encounter Social History Tobacco Use Types Packs/Day Years Used Date Never Smoker Smokeless Tobacco: Never Used Alcohol Use Drinks/Week oz/Week Comments Yes rare Sex Assigned at Date Recorded Not on file Job Start Date Occupation Industry Not on file Not on file Not on file documented as of this encounter Plan of Treatment Upcoming Encounters Date Type Specialty Care Team Description 09/06/2020 Appointment Radiology Scheduled Orders Name Type Priority Associated Diagnoses Orde r Schedule MAMMOGRAM SCREENING DIA BILATERAL Medical Imaging Routine Encounter for screening mammogram for malignant neoplasm of breast Ordered: 08/15/2020 Health Maintenance Due Date Last Done Comments COVID-19 Vaccine (1) 1976 PAP SMEAR-EVERY 3 YRS,AGES 21-65 03/26/2014 03/26/2011, 10/25/2008, 10/25/2007, Additional history exists Zoster Vaccines (1 of 2) 2014 LIPID SCREEN EVERY 5 YRS-WOMEN AGE 45-75 01/20/2015 01/20/2010, 03/26/2006 *DEPRESSION SCREENING,ANNUAL FOR PTS 12 AND OVER 03/12/2015 DTaP,Tdap,and Td Vaccines (2 - Td) 12/30/2015 12/29/2005 DIABETES SCREEN EVERY 3 YRS-AGE 45 AND ABOVE 05/16/2019 05/15/2016, 11/23/2014, 05/06/2012, Additional history exists BREAST CANCER SCREENING DISCUSSION YEARLY AGES 40-75 08/31/2020 09/01/2019, 08/25/2018, 08/06/2016, Additional history exists MAMMOGRAM-ANNUAL AGES 18-90 08/31/202008/09, 08/25/2018, 08/06/2016, Additional history exists Influenza Vaccine (FLU shot) (#1) 2020 10/25/2008 MENINGOCOCCAL (MENACTRA/MENVEO) Aged Out No longer eligible based on patient's age to complete this topic Pneumococcal Vaccine: Pediatrics (0 to 5 Years) and At-Risk Patients (6 to 64 Years) Aged Out No longer eligible based on patient's age to complete this topic documented as of this encounter Implants Not on filedocumented as of this encounter Visit Diagnoses Diagnosis Encounter for screening mammogram for malignant neoplasm of breast- Primary Other screening mammogram documented in this encounter Advance Directives Documents on File Type Date Recorded 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
--- OUTSIDE RECORDS SUMMARY | 2022-10-08 05:41 | External Medical Summary | Summary of Care ---
Author [place] [address] Care Team Providers Care Porter Sample Case Name Role Phone Maya Martin PA-C Primary Care Pro vider Encounter Details Date Type Department Care Team Description 08/08/2019 Orders Only Radiology, [facility] [address] [place], [place] [id number] Requisition, External Radiology [address] [place] [address] Encounter for screening mammogram for malignant neoplasm of breast* Allergies No Known Allergiesdocumented as of this encounter (statuses as of 08/08/2019) Medications Medication Sig Dispensed Refills Start Date [...] as of this encounter (statuses as of 08/08/2019) Active Problems Problem Noted Date History of arthroscopic procedure on sindy roy 08/17/2014 Overview: Lt-07/03/14 Other chronic allergic conjunctivitis Ankle joint pain 09/18/2011 Overview: Rt---had fall 11/18--Shaun --had MRI ---fu 09/23/11----had sg end 09/19 Migraine with aura 01/28/2010 DIFFUS CYSTIC MASTOPATHY 10/25/2007 Screening for malignant neoplasm of cerv ix 12/29/2005 Overview: Neg--03/22;; : no IEL.--[id number].--10/25/2008--neg,Rpt in 3 yrs.(unless chg H) Pap : 07-13, 09-10, 09-09 neg IEL, had kiya in . Screening for malignant neoplasm of amita st 12/29/2005 Overview: NEG--11/18;; 11/17--same 10/02/2008 [facility]---neg 09-15--[facility]--same. Mammogram: 07-14-05: scattered fibroglandular densities.Baseline study. FAM HX-DIABETES MELLITUS 12/29/2005 Overview: Mom.HTN Obesity, Class I, BMI 30-34.9 12/29/2005 Overview: 10/25/2008--BMI: 27.53 kg/m 10/25/2007: BMI: 31.09 kg/m Ht/wt S shoes. : FBS 81, TSH 2, lipids 197/81/68/113. BMI: 32.01 kg/m INFORMATION 12/29/2005 Overview: 05/21-neg RF, ,connie, nl fbs. 10/25/2008--CPE-(mar) BMI: 27.53 kg/m. Adacel--12-29-05. Pt had hep [...] Duodenitis On EGD 1985. Per pt at [facility]. Other allergic rhinitis 08/31/2003 Overview: Spring-fall sinus sg [place] 07/31/11 ICD-10 update of inactive term documented as of this encounter (statuses as of 08/08/2019) Resolved Problems Problem Noted Date Resolved Date Encounter for supervision of other normal pregna ncy 12/19/2001 05/16/2002 Overview: ICD-10 update of inactive term Elderly multigravida with an tepartum condition or complication 10/07/2001 05/16/2002 POLYCYSTIC OVARIES - Dr Cee 0 10/07/2001 documented as of this encounter (statuses as of 08/08/2019) Immunizations Name Administration Dates Next Due Methylprednisolone 01/12/2008 Seasonal Influenza, Trivalen t, with Preserve, 3yr & Above, Split 03/26/2011(Deferred: Patient Refused),10/25/2008 TDAP (age 11 and older)(Adacel) 12/29/2005 documented as of this encounter Social History Tobacco Use Types Packs/Day Years Used Date Never Smoker Smokeless Tobacco: Never Used Alcohol Use Drinks/Week oz/Week Comments Yes rare Sex Assigned at Date Recorded Not on file Job Start Date Occupation Industry Not on file Not on file Not on file Travel History Travel Start Travel End documented as of this encounter Plan of Treatment Upcoming Encounters Date Type Specialty Care Team Description 09/01/2019 Appointment Radiology Scheduled Orders Name Type Priority Associated Diagnoses Orde r Schedule MAMMOGRAM SCREENING DIA BILATERAL Medical Imaging Routine Encounter for screening mammogram for malignant neoplasm of breast Ordered: 08/08/2019 Health Maintenance Due Date Last Done Comments PAP SMEAR-EVERY 3 YRS,AGES 21-65 03/26/2014 03/26/2011, [...] BREAST CANCER SCREENING DISCUSSION YEARLY AGES 40-75 08/26/2019 08/25/2018, 08/06/2016, 07/31/2015, Additional history exists MAMMOGRAM-ANNUAL AGES 18-90 08/26/201908/08, 08/06/2016, 07/31/2015, Additional history exists Influenza Vaccine (FLU shot) (Season Ended) 2019 10/25/2008 MENINGOCOCCAL (MENACTRA/MENVEO) Aged Out No longer [...] Documents on File Type Date 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
--- OUTSIDE RECORDS SUMMARY | 2022-10-08 05:41 | External Medical Summary | Summary of Care ---
Author Name Unknown Organization [facility] Address [address] [place] [address] Phone [phone] Care Team Providers Care Table Tender Name Role Phone Peewee Anita Tom Allen DO Primary Care Provider + Reason for Referral * Precert (Within 10 days (routine)) - Pending Review Specialty Diagnoses / Procedures Referred By Contac t Referred To Contact Radiology Diagnoses Lumbar facet joint syndrome Procedures MRI L SPINE WO CONTRAST Jaziel Real PA-C [address] [place] [phone] Referral ID Status Reason Start Date Expiration Date V isits Requested Visits Authorized [id number] Pending Review 08/05/[phone] Encounter Details Date Type Department Care Team Description 08/05/2022 Orders Only Radiology, [address] [address] Requisition, External Radiology [address] [place] [address] Lumbar facet joint syndrome* Allergies No known active allergiesdocumented as of this encounter (statuses as of 08/05/2022) Medications Medication Sig Dispensed Refills Start Date [...] as of this encounter (statuses as of 08/05/2022) Active Problems Problem Noted Date History of arthroscopic procedure on sindy tishader 08/17/2014 Overview: Lt-07/03/14 Other chronic allergic conjunctivitis Ankle joint pain 09/18/2011 Overview: Rt---had fall 11/18--Shaun --had MRI ---fu 09/23/11----had sg end 09/19 Migraine with aura 01/28/2010 DIFFUS CYSTIC MASTOPATHY 10/25/2007 Screening for malignant neoplasm of cerv ix 12/29/2005 Overview: Neg--03/22;; : no IEL.--[id number].--10/25/2008--neg,Rpt in 3 yrs.(unless chg H) Pap : 06-05, 08-03, 08- neg IEL, had kiya in 02. Screening for malignant neoplasm of amita st 12/29/2005 Overview: NEG--11/18;; 11/17--same 10/02/2008 [facility]---neg 09-15--[facility]--same. Mammogram: 07-14-05: scattered fibroglandular densities.Baseline study. [...] Duodenitis On EGD 1985. Per pt at [facility]. Other allergic rhinitis 08/31/2003 Overview: Spring-fall sinus sg Reeseo 07/31/11 ICD-10 update of inactive term documented as of this encounter (statuses as of 08/05/2022) Resolved Problems Problem Noted Date Resolved Date Encounter for supervision of other normal pregna ncy 12/19/2001 05/16/2002 Overview: ICD-10 update of inactive term Elderly multigravida with an tepartum condition or complication 10/07/2001 05/16/2002 POLYCYSTIC OVARIES - Dr Jaye Rosales 10/07/2001 documented as of this encounter (statuses as of 08/05/2022) Immunizations Name Administration Dates Next Due Seasonal [...] Encounters Date Type Specialty Care Team Description 08/22/2022 Appointment Radiology Scheduled Orders Name Type Priority Associated Diagnoses Orde r Schedule MRI L SPINE WO CONTRAST Medical Imaging Routine Lumbar facet joint syndrome Expected: 08/05/2022, Expires: 09/05/2023 Scheduled Procedures Name Priority Associated Diagnoses Date/Ti [...] exists Influenza Vaccine (FLU shot) (Season Ended) 2022 10/25/2008 Colonoscopy 08/01/2025 08/02/2015, 08/02/2015 Colorectal [...] encounter Visit Diagnoses Diagnosis Lumbar facet joint syndrome- Primary documented in this encounter Care Teams Table Tender Relationship Specialty Start Date End Date Anita Vides DO PCP - General Family Medicine 08/15/21 documented as of this encounter
--- OUTSIDE RECORDS SUMMARY | 2022-10-08 05:41 | External Medical Summary | Summary of Care ---
Author Name Unknown Organization [place] [address] Care Team Providers Care Multiple Drill Operator Name Role Phone Maya Martin PA-C Primary Care Pro vider Reason for Visit * Reason Comments Test Results Imaging Study Encounter Details Date Type Department Care Team Description [facility] [place] [address], [address] [place] [address] Gilda Hernández PA-C [address] [place] [address] Test Results Imaging Study Allergies No Known Allergiesdocumented as of this encounter (statuses as of 01/16/2019) Medications Medication Sig Dispensed Refills Start Date [...] as of this encounter (statuses as of 01/16/2019) Active Problems Problem Noted Date History of arthroscopic procedure on sindy roy 08/17/2014 Overview: Lt-07/03/14 Other chronic allergic conjunctivitis Ankle joint pain 09/18/2011 Overview: Rt---had fall 11/18--Shaun --had MRI ---fu 09/23/11----had sg end 09/19 Migraine with aura 01/28/2010 DIFFUS CYSTIC MASTOPATHY 10/25/2007 Screening for malignant neoplasm of cerv ix 12/29/2005 Overview: Neg--03/22;; : no IEL.--[id number].--10/25/2008--neg,Rpt in 3 yrs.(unless chg H) Pap : -, -, - neg IEL, had kiya in . Screening for malignant neoplasm of amita st 12/29/2005 Overview: NEG--11/18;; 11/17--same 10/02/2008 [facility]---neg 09-15--[facility]--same. Mammogram: 07-14-05: scattered fibroglandular densities.Baseline [...] 01/22/2004 Overview: 03/22--chg pril to prevacid--09/19--imp Ct prilose--mar 19- neg H pylori - nml cbc, lft, glucose 88.--Ba Swallow-mod Reflux to level upper esophagus.small sliding type Hiatal hernia. April 13: Nml Us abd., nml CBC, CMP,amylase. Nml GB US . Duodenitis On EGD 1985. Per pt at [facility] hosp. Other allergic rhinitis 08/31/2003 Overview: Spring-fall sinus sg DrKao 07/31/11 ICD-10 update of inactive term documented as of this encounter (statuses as of 01/16/2019) Resolved Problems Problem Noted Date Resolved Date Encounter for supervision of other normal pregna ncy 12/19/2001 05/16/2002 Overview: ICD-10 update of inactive term Elderly multigravida with an tepartum condition or complication 10/07/2001 05/16/2002 POLYCYSTIC OVARIES - Dr Cee 0 10/07/2001 documented as of this encounter (statuses as of 01/16/2019) Immunizations Name Administration Dates Next Due Methylprednisolone [...] Travel End documented as of this encounter Miscellaneous Notes * Telephone Encounter - Gricelda Garsia CMA - 01/16/2019 6:48 PM EST Patient made aware of results, verbalized understanding * Telephone Encounter - Maya Mcbride LPN - 01/16/2019 1:29 PM EST Left generic message on answering machine asking pt to return our call. * Telephone Encounter - Gilda Hernández PA-C - 01/16/2019 11:20 AM EST Please call pt and inform her that there is no fracture noted in area of trauma. Continue RICE therapy, if not improving in 7-10 days see Orthopedics FINDINGS Tiny corticated densities at the plantar proximal phalanges of the 2nd and 3rd digit. Dorsal midfoot soft tissue swelling. There is no acute fracture or dislocation. Mineralization appear satisfactory. No joint abnormality. IMPRESSION IMPRESSION No acute fracture identified.. documented in this encounter Plan of Treatment Health Maintenance Due Date Last Done Comments PAP SMEAR-EVERY 3 YRS,AGES 21-65 03/26/2014 03/26/2011, 10/25/2008, 10/25/2007, Additional history exists LIPID SCREEN EVERY 5 YRS-WOMEN AGE 45-75 01/20/2015 01/20/2010, 03/26/2006 *DEPRESSION SCREENING,ANNUAL FOR PTS 12 AND OVER 03/12/2015 DTaP,Tdap,and Td Vaccines (2 - Td) 12/30/2015 12/29/2005 Influenza Vaccine (FLU shot) (#1) 2018 10/25/2008 DIABETES SCREEN EVERY 3 YRS-AGE 45 AND ABOVE 05/16/2019 05/15/2016, 11/23/2014, 05/06/2012, Additional history exists BREAST CANCER SCREENING DISCUSSION YEARLY AGES 40-75 08/26/2019 08/25/2018, 08/06/2016, 07/31/2015, Additional history exists MAMMOGRAM-ANNUAL AGES 18-90 08/26/201908/08, 08/06/2016, 07/31/2015, Additional history exists MENINGOCOCCAL (MENACTRA) Aged Out No longer eligible based on patient's age to complete this topic Pneumococcal Vaccine: Pediatrics (0 to 5 Years) and At-Risk Patients (6 to 64 Years) Aged Out No longer eligible based on patient's age to complete this topic documented as of this encounter Implants Not on filedocumented as of this encounter Advance Directives Documents on File Type Date Recorded Patient Controls Technician Expl anation Advanced Directive Advanced Directive Advanced Directive Advanced Directive Advanced Directive Advanced Directive Advanced Directive Advanced Directive Advanced Directive Advanced Directive Advanced Directive 09/30/2017 7:14 AM Advanced Directive
--- OUTSIDE RECORDS SUMMARY | 2022-10-08 05:41 | External Medical Summary | Summary of Care ---
Author Name Unknown Organization [place] [address] Care Team Providers Care Mortgage Or Loan Underwriter Name Role Phone Maya Martin PA-C Primary Care Pro vider Reason for Visit * Reason Comments Foot Injury right Encounter Details Date Type Department Care Team Description 01/16/2019 [facility] [place] [address], [address] [place] [address] Gilda Hernández PA-C [address] [place] [address] Right foot pain* Allergies No Known Allergiesdocumented as of this [...] mouth daily at noon. 0 12/12/2018 Active HYDROcodone-acetam inophen 5-325 mg per tab 5-325 MG per tablet 1 Tab daily as needed. 0 08/07/2014 01/16/2019 Discontinued( Patient preference/di scontinuation ) documented as of this encounter (statuses as of 01/16/2019) Active Problems Problem Noted Date History of arthroscopic procedure on sindy ulder 08/17/2014 Overview: Lt-07/03/14 Other chronic allergic conjunctivitis Ankle joint pain 09/18/2011 Overview: Rt---had fall 11/18--Shaun --had MRI ---fu 09/23/11----had sg end 09/19 Migraine with aura 01/28/2010 DIFFUS CYSTIC MASTOPATHY 10/25/2007 Screening for malignant neoplasm of cerv ix 12/29/2005 Overview: Neg--03/22;; : no IEL.--[id number].--10/25/2008--neg,Rpt in 3 yrs.(unless chg H) Pap : -, -, - neg IEL, had kiya in . Screening for malignant neoplasm of amita st 12/29/2005 Overview: NEG--11/18;; 11/17--same 10/02/2008 [facility]---neg 09-15--[facility]--same. Mammogram: 07-14-05: scattered fibroglandular densities.Baseline study. FAM [...] Duodenitis On EGD 1985. Per pt at [facility]. Other allergic rhinitis 08/31/2003 Overview: Spring-fall sinus [...] Travel End documented as of this encounter Last Filed Vital Signs Vital Sign Reading Time Taken Comments Blood Pressure 130/84 01/16/2019 10:21 AM EST Pulse 88 01/16/2019 10:21 AM EST Temperature 36.5 C (97.7 F) 01/16/2019 10:[address] Respiratory Rate 18 01/16/2019 10:21 AM EST Oxygen Saturation 100% 01/16/2019 10:21 AM EST Inhaled Oxygen Concentration - - Weight 108.9 kg (240 lb) 01/16/2019 10:21 AM EST Height 170.2 cm (5' 7") 01/16/2019 10:21 AM EST Body Mass Index 37.59 01/16/2019 10:21 AM EST documented in this encounter Patient Instructions * Patient Instructions* Gilda Hernández PA-C - 01/16/2019 10:27 AM EST -Symptoms are likely caused by a musculoskeletal strain or sprain. -Recommend rest, ice, elevation, compression and/or brace as directed. -Directions for icing the area: use an ice pack or other cold compress on the affected area(s) for 15 minutes every 1-2hrs. Use a towel between the ice pack and skin to prevent frostbite. -For pain may use over the counter Tylenol (acetaminophen) or NSAIDs (such as Advil, ibuprofen, Aleve, or naproxen) as directed per package instructions, not to exceed recommended doses. Take with food. NSAIDs can cause stomach upset or you have had hx of stomach ulcers or bleeding in the past refrain from using them. -Follow up with your Orthopedics in 7-10 days if symptoms persist or acutely worsen. Sooner if needed if symptoms are acutely worsening. documented in this encounter Progress Notes * Gilda Hernández PA-C - 01/16/2019 10:26 AM EST CC: R foot pain X 1 day Nursing Notes: Maya Mcbride LPN 01/16/19 1026 Signed Sanam Abarca is a 53 year old female who presents to walk-in clinic today complaining of Chief Complaint Patient presents with Foot Injury right Main Symptoms:pain and mild swelling and noted bruising on top of foot. Cause: accidentally hit foot off of rocking chair How long: last night. Tried: ibuprofen and ice Pt accompanied by: self HPI: Sanma Abarca is a 53 year old female who presents complaining of R foot pain that have been presentfor 1day(s) and are unchanged With symptoms including: kicked rocking chair yesterday AM, pain currently 6.5/10, at worst 9/10 over the third metatarsal, achy feeling at rest, does radiate into heel occ., complains of bruising and swelling. Can walk on it by using heel more Pt has tried OTCs, including: ibuprofen and ice Pt denies fevers, malaise, fatigue, and chills/sweats. Pt denies sneezing and watery/itchy eyes. Pt denies other viral sxs, including: N/V/D. ROS: Please see HPI for pertinent positives and negatives, otherwise pt denies additional complaints. History: Past Medical History: Diagnosis Date Allergic rhinitis FAM HX-DIABETES MELLITUS 12/29/2005 Mom.HTN INFORMATION 12/29/2005 Pt had hep B series and had titer 1-2 yrs ago, last PPD was feb 2005- neg per pt. OBESITY, UNSPECIFIED 12/29/2005 BMI: 32.01 kg/m PAP SCREEN ONLY (ROUTINE) 12/29/2005 Pap : 07-13, 09-10, 09-09 neg IEL, had kiya in . SCREENING FOR MALIGNANT NEOPLASM,BREAST UNSPECIFIED 12/29/2005 Mammogram: 07-14-05: scattered fibroglandular densities.Baseline study. Past Surgical History: Procedure Laterality Date CARPAL TUNNEL SURGERY 10/24/02 Bilateral carpal tunnel release COLONOSCOPY, DIAGNOSTIC (RECTUM) N/A 08/02/2015 screening/recall 10 years/COLONOSCOPY FLEXIBLE PROXIMAL DIAGNOSTIC performed by Yu Matute DO at ENDOSCOPY [facility] EGD, FLEXIBLE, DIAGNOSTIC N/A 09/30/2017 normal/EGD EGD, FLEXIBLE, DIAGNOSTIC N/A 09/30/2017 ESOPHAGOGASTRODUODENOSCOPY (EGD), FLEXIBLE, TRANSORAL, DIAGNOSTIC performed by Otis Grissom MD at ENDOSCOPY [facility] KNEE ARTHROSCOPY/ARTHROPLASTY , Rt REPAIR OF ANKLE LIGAMENTS 09/2011 Rt--Dr Michel REPAIR SHOULDER CUFF AVULSION 07/03/14 Lt - Dr Reyna SINUS SURGERY PROCEDURE NEC 07/31/11 [place]--Rt & Lt total ethmoidectomy w/ rt & lt maxillary sinus antrostomy Social History Tobacco Use Smoking status: Never Smoker Smokeless tobacco: Never Used Substance Use Topics Alcohol use: Yes Comment: rare Social History Substance and Sexual Activity Drug Use No Family History Problem Relation Age of Onset Diabetes Mother Hypertension Mother Asthma Father hypothyroidism Heart Disorder Father MVR Cancer Grandfather (Maternal) colon ca age 50,s No Past Hx Brother x2 Immunization History Administered Date(s) Administered Methylprednisolone 01/12/2008 Seasonal Influenza, Trivalent, with Preserve, 3yr & Above, Split 10/25/2008 TDAP (age 11 and older)(Adacel) 12/29/2005 Current Outpatient Medications Medication Sig Dispense Refill minocycline (MINOCIN) 100 MG Capsule Take 100 mg by mouth daily at noon. Ascorbic Acid (VITAMIN C) 1000 MG Tablet Take 1,000 mg by mouth daily. zinc gluconate 50 MG Tablet Take 50 mg by mouth daily. Cholecalciferol (VITAMIN D3) 2000 UNITS Tablet Take 2,000 Units by mouth daily. Magnesium 500 MG Capsule Take 500 mg by mouth daily. Potassium 95 MG TABS Take 1 Tab by mouth daily. Aspirin 81 MG Tablet Take 1 Tab by mouth daily. MULTIVITAMINS PO CAPS Take 1 Cap by mouth daily. 30 Cap 5 Esomeprazole Magnesium (NEXIUM) 40 MG CPDR Take 1 Cap by mouth daily before breakfast. 30 Cap 0 Review of patient's allergies indicates: No Known Allergies Physical exam: BP 130/84 | Pulse 88 | Temp (Src) 97.7 (Tympanic) | Resp 18 | Ht 5' 7" (1.702m) | Wt 240 lbs (108.863kg) | BMI 37.59 kg/m | BSA 2.27 m | SaO2 100% | LMP 01/02/2019 | ? No General Appearance: healthy, alert, no distress, cooperative Eyes: no proptosis, no periorbital inflammation or soft tissue edema, no orbital cellulitis Respiratory: clear to auscultation,no rhonchi,no wheezes,no crackles Heart: regular rate,regular rhythm,no murmurs,no rubs,no gallops Foot (right): Vinnie, neurovascularly intact, mild change in gait, mild inflammation over 2-4 metatarsals, no warmth. minimal ecchymosis, very sensitive to palpation Skin: warm, dry, no visible rashes or abnormal coloring Assessment/Plan: Right foot pain (Primary) - XR FOOT 3 OR MORE VIEWS Discussed immobilization, pt deferred due to increased pain of boot over top of foot. Patient Instructions -Symptoms are likely caused by a musculoskeletal strain or sprain. -Recommend rest, ice, elevation, compression and/or brace as directed. -Directions for icing the area: use an ice pack or other cold compress on the affected area(s) for 15 minutes every 1-2hrs. Use a towel between the ice pack and skin to prevent frostbite. -For pain may use over the counter Tylenol (acetaminophen) or NSAIDs (such as Advil, ibuprofen, Aleve, or naproxen) as directed per package instructions, not to exceed recommended doses. Take with food. NSAIDs can cause stomach upset or you have had hx of stomach ulcers or bleeding in the past refrain from using them. -Follow up with your Orthopedics in 7-10 days if symptoms persist or acutely worsen. Sooner if needed if symptoms are acutely worsening. Patient goals for plan of care were discussed. Follow Up: Recommend following up with family provider if current symptoms fail to resolve. If symptoms worsenacutely, please be evaluated in the Emergency Room. Gilda Hernández PA-C [address], [address] [facility] [id number] documented in this encounter Nursing Notes * Maya Mcbride LPN - 01/16/2019 10:25 AM EST Sanam Abarca is a 53 year old female who presents to walk-in clinic today complaining of Chief Complaint Patient presents with Foot Injury right Main Symptoms:pain and mild swelling and noted bruising on top of foot. Cause: accidentally hit foot off of rocking chair How long: last night. Tried: ibuprofen and ice Pt accompanied by: self documented in this encounter Plan of Treatment Pending Results Name Type Priority Associated Diagnoses Date /Time XR FOOT 3 OR MORE VIEWS Medical Imaging STAT Right foot pain 01/16/2019 10:54 AM EST Health Maintenance Due Date Last Done Comments [...] as of this encounter Visit Diagnoses Diagnosis Right foot pain- Primary Pain in limb documented in this encounter Advance Directives Documents on File Type Date Recorded Patient Technician Preventative Medicine Expl anation Advanced Directive Advanced Directive Advanced Directive Advanced Directive Advanced Directive Advanced Directive Advanced Directive Advanced Directive Advanced Directive Advanced Directive Advanced Directive 09/30/2017 7:14 AM Advanced Directive
--- OUTSIDE RECORDS SUMMARY | 2022-10-08 05:41 | External Medical Summary | Summary of Care ---
Author Name Unknown Organization [facility] Address [address] [place] [address] Phone [phone] Care Team Providers Care Preassembler And Inspector Name Role Phone Anita Vides DO Primary Care Provider + Reason for Visit * Reason Onset Date Comments Appointment 08/19/2022 Encounter Details Date Type Department Care Team Description 08/19/2022 Telephone Radiology, [facility] [address] [place] [address] Kai Farnsworth, RT Appointment Allergies No known active allergiesdocumented as of this encounter (statuses as of 08/19/2022) Medications Medication Sig Dispensed Refills Start Date [...] as of this encounter (statuses as of 08/19/2022) Active Problems Problem Noted Date History of arthroscopic procedure on sindy manuela 08/17/2014 Overview: Lt-07/03/14 Other chronic allergic conjunctivitis Ankle joint pain 09/18/2011 Overview: Rt---had fall 11/18--Shaun --had MRI ---fu 09/23/11----had sg end 09/19 Migraine with aura 01/28/2010 DIFFUS CYSTIC MASTOPATHY 10/25/2007 Screening for malignant neoplasm of cerv ix 12/29/2005 Overview: Neg--03/22;; : no IEL.--[id number].--10/25/2008--neg,Rpt in 3 yrs.(unless chg H) Pap : -, -, - neg IEL, had kiya in . Screening for malignant neoplasm of amita st 12/29/2005 Overview: NEG--11/18;; 11/17--same 10/02/2008 [facility]---neg 09-15--[facility]--same. Mammogram: 07-14-05: scattered fibroglandular densities.Baseline [...] Duodenitis On EGD 1985. Per pt at [facility] hosp. Other allergic rhinitis 08/31/2003 Overview: Spring-fall sinus sg DrKao 07/31/11 ICD-10 update of inactive term documented as of this encounter (statuses as of 08/19/2022) Resolved Problems Problem Noted Date Resolved Date Encounter for supervision of other normal pregna ncy 12/19/2001 05/16/2002 Overview: ICD-10 update of inactive term Elderly multigravida with an tepartum condition or complication 10/07/2001 05/16/2002 POLYCYSTIC OVARIES - Dr Cee 0 10/07/2001 documented as of this encounter (statuses as of 08/19/2022) Immunizations Name Administration Dates Next Due Seasonal [...] on file documented as of this encounter Miscellaneous Notes * Telephone Encounter - Kai Farnsworth RT - 08/19/2022 8:56 AM EDT Ready for mri documented in this encounter Plan of Treatment Upcoming Encounters Date Type Specialty Care Team Description 08/22/2022 Appointment Radiology Scheduled Procedures Name Priority Associated Diagnoses Date/Ti [...] Not on filedocumented as of this encounter Care Teams Preassembler And Inspector Relationship Specialty Start Date End Date Anita Vides DO PCP - General Family Medicine 08/15/21 documented as of this encounter
--- OUTSIDE RECORDS SUMMARY | 2022-10-08 05:42 | External Medical Summary | Summary of Care ---
Author Name Unknown Organization [place] [address] Phone Care Team Providers Care Print Shop Stenographer Name Role Phone Maya Martin PA-C Primary Care Pro vider Reason for Visit * Reason Comments FOLLOW UP Right plantar lesion Encounter Details Date Type Department Care Team Description 03/30/2017 Office Visit Podiatry, Patricia Da Silva [address], [address] [place] [address] Yamilka Gates, DPM [address] [place] [address] Soft tissue lesion of foot* Allergies No Known Allergiesas of this encounter Medications Prescription Sig. Disp. Refills Start Date End Date Status MULTIVITAMINS PO CAPS daily 30 Cap 5 03/09/2014 Active HYDROcodone-acetaminophe n 5-325 mg per tab 5-325 MG per tablet 1 Tab daily as needed. 0 08/07/2014 Active Aspirin 81 MG Tablet Take 1 Tab by mouth daily. Active Magnesium 500 MG Capsule Take 500 mg by mouth daily. Active Cholecalciferol (VITAMIN D3) 2000 UNITS Tablet Take 2,000 Units by mouth daily. Active Potassium 95 MG TABS 1 Tab daily. Ac tive Esomeprazole Magnesium (NEXIUM) 40 MG CPDR Take 1 Cap by mouth daily before breakfast. 30 Cap 0 05/15/2016 Active zinc gluconate 50 MG Tablet Take 50 mg by mouth daily. Active Ascorbic Acid (VITAMIN C) 1000 MG Tablet Take 1,000 mg by mouth daily. Active as of this encounter Active Problems Problem Noted Date History of arthroscopic procedure on sindy roy 08/17/2014 Overview: Lt-07/03/14 Other chronic allergic conjunctivitis Ankle joint pain 09/18/2011 Overview: Rt---had fall 11/18--Shaun --had MRI ---fu 09/23/11----had sg end 09/19 Migraine with aura 01/28/2010 DIFFUS CYSTIC MASTOPATHY 10/25/2007 Screening for malignant neoplasm of cerv ix 12/29/2005 Overview: Neg--03/22;; : no IEL.--[id number].--10/25/2008--neg,Rpt in 3 yrs.(unless chg H) Pap : 07-13, 09-10, 09-09 neg IEL, had kiya in . Screening for malignant neoplasm of amita st 12/29/2005 Overview: NEG--11/18;; 11/17--same 10/02/2008 [facility]---neg 09-15--[facility]--same. Mammogram: 07-14-05: scattered fibroglandular densities.Baseline study. [...] Duodenitis On EGD 1985. Per pt at [facility]. Other allergic rhinitis 08/31/2003 Overview: Spring-fall sinus sg Reeseo 07/31/11 ICD-10 update of inactive term as of this encounter Resolved Problems Problem Noted Date Resolved Date Encounter for supervision of other normal pregna ncy 12/19/2001 05/16/2002 Overview: ICD-10 update of inactive term Elderly multigravida with an tepartum condition or complication 10/07/2001 05/16/2002 POLYCYSTIC OVARIES - Dr Cee 0 10/07/2001 as of this encounter Immunizations Name Dates Previously Given Next Due Seasonal Influenza, Trivalen t, with Preserve, 3yr & Above, Split 03/26/2011(Deferred: Patient Refused),10/25/2008 TDAP (age 11 and older)(Adacel) 12/29/2005 as of this encounter Social History Tobacco Use Types Packs/Day Years Used Date Never Smoker Smokeless Tobacco: Never Used Alcohol Use Drinks/Week oz/Week Comments Yes rare Sex Assigned at Date Recorded Not on file as of this encounter Progress Notes * Yamilka Gates, CORAL - 04/05/2017 7:13 AM EST Formatting of this note may be different from the original. Podiatry Established Note [facility] Name: Sanam Abarca : 1965 Date: 03/30/2017 REASON FOR VISIT: Right plantar foot lesion SUBJECTIVE: This patient is a 51 year old female who presents today for follow up of right plantar foot lesion. Denies any pain. Mild burning after treatment. No other issues or complaints. Past Medical History: Diagnosis Date Allergic rhinitis FAM HX-DIABETES MELLITUS 12/29/2005 Mom.HTN INFORMATION 12/29/2005 Pt had hep B series and had titer 1-2 yrs ago, last PPD was feb 2005- neg per pt. OBESITY, UNSPECIFIED 12/29/2005 BMI: 32.01 kg/m PAP SCREEN ONLY (ROUTINE) 12/29/2005 Pap : 06-05, -, - neg IEL, had kiya in . SCREENING FOR MALIGNANT NEOPLASM,BREAST UNSPECIFIED 12/29/2005 Mammogram: 07-14-05: scattered fibroglandular densities.Baseline study. ALLERGIES: Review of patient's allergies indicates: No Known Allergies REVIEW OF SYSTEMS: Constitutional: Negative for fever, activity change and appetite change. Musculoskeletal: Negative for joint swelling, arthralgias and gait problem. Skin: Negative for color change, rash and wound. Neurological: Negative for dizziness, weakness and numbness. FOCUSED PODIATRIC EXAM: Vitals: There were no vitals filed for this visit. General: Patient is awake alert oriented to person place time. No apparent distress. Vascular: Pedal pulses are palpable. CFT<3sec. +pedal hair. No edema noted. Neurologic: Vibratory and sharp/dull sensation intact. Protective sensation intact with 5.07 monofilament. Proprioceptive sensation intact. Light touch sensation is intact. Musculoskeletal: MMT 5/5 with no pain on ROM in dorsiflexion, plantarflexion, inversion and eversion to both lower extremities. No gross deformities, masses or abnormalities noted. No defect or loss of arch height, no acute deformity, no bruising or swelling. Dermatological: Normal proximal to distal cooling to the lower extremities. Texture is dry. Turgor is within normallimits. No open wounds or abrasions. Healthy skin lines over the previous lesion area. DIAGNOSTIC STUDIES: None ASSESSMENT: 1. Right foot lesion. PLAN: Patient seen and examined. Lesion resolved Follow up PRN. Yamilka Gates DPM in this encounter Nursing Notes * Antionette Miller MED ASSIST - 03/30/2017 3:37 PM EST Right plantar lesion. Pt denies pain. YEIMI Huitron in this encounter Plan of Treatment Health Maintenance Due Date Last Done Comments PAP SMEAR-EVERY 3 YRS,AGES 21-65 03/26/2014 03/26/2011, 10/25/2008, 10/25/2007, Additional history exists LIPID SCREEN EVERY 5 YRS-WOM EN AGE 45-75 01/20/2015 01/20/2010, 03/26/2006 *DEPRESSION SCREENING, CHRISTOS Marsh FOR PTS 18 AND OVER 03/12/2015 DTaP,Tdap,and Td Vaccines (2 - Td) 12/30/2015 12/29/2005 Influenza Vaccine (FLU shot) (#1) 2016 009 BREAST CANCER SCREENING DISCUSSION YEARLY AGES 40-75 08/06/2017 08/06/2016, 07/31/2015, 10/03/2012, Additional history exists MAMMOGRAM-ANNUAL AGES 18-90 08/06/201707/10, 07/31/2015, 10/03/2012, Additional history exists DIABETES SCREEN EVERY 3 YRS- AGE 45 AND ABOVE 05/16/2019 05/15/2016, 11/23/2014, 05/06/2012, Additional history exists as of this encounter Implants Not on fileas of this encounter Visit Diagnoses Diagnosis Soft tissue lesion of foot - Primary in this encounter Insurance Payer Benefit Plan / Group Subscriber ID Type Phone Address [employer] LISET IVORY [id number] 1 as of this encounter
--- OUTSIDE RECORDS SUMMARY | 2022-10-08 05:42 | External Medical Summary | Summary of Care ---
Author Name Unknown Organization [place] [address] Phone Care Team Providers Care Radar Scientist Name Role Phone Hilda Martinfer Ariadne LAGOS Primary Care Pro vider Reason for Visit * Reason Comments Eye Problem Encounter Details Date Type Department Care Team Description 07/06/[address] [facility], [place] [address], [address] [place], [place] [id number] Gilda Hernández PA-C [address] [place] [address] Facial swelling* Allergies No Known Allergiesas of this encounter [...] cerv ix 12/29/2005 Overview: Neg--03/22;; : no IEL.--[id number].--10/25/2008--neg,Rpt in 3 yrs.(unless chg H) Pap : 07-13, 09-10, 09-09 neg IEL, had kiya in . Screening for malignant neoplasm of amita st 12/29/2005 Overview: NEG--11/18;; 11/17--same 10/02/2008 [facility]---neg 09-15--[facility]--same. Mammogram: 07-14-05: scattered fibroglandular densities.Baseline study. [...] prevacid--09/19--imp Ct prilosec--mar 19- neg H pylori Sep- nml cbc, lft, glucose 88.--Ba Swallow-mod Reflux to level upper esophagus.small sliding type Hiatal hernia. April 13: Nml Us abd., nml CBC, CMP,amylase. Nml GB US . Duodenitis On EGD 1985. Per pt at [facility] hosp. Other allergic rhinitis 08/31/2003 Overview: Spring-fall sinus sg DrKao 07/31/11 ICD-10 update of inactive term as [...] Not on file as of this encounter Last Filed Vital Signs Vital Sign Reading Time Taken Blood Pressure 124/76 07/06/2017 10:27 AM EDT Pulse 66 07/06/2017 10:27 AM EDT Temperature 36.8 C (98.3 F) 07/06/2017 1 0:27 AM EDT Respiratory Rate 16 07/06/2017 10:2 7 AM EDT Oxygen Saturation 99% 07/06/2017 10: 27 AM EDT Inhaled Oxygen Concentration - - Weight 104.8 kg (231 lb) 07/06/2017 10: 27 AM EDT Height 170.2 cm (5' 7") 07/06/2017 10:2 7 AM EDT Body Mass Index 36.18 07/06/2017 10:27 AM EDT in this encounter Instructions * Patient Instructions - Gilda Hernández PA-C - 07/06/2017 11:09 AM EDT Hydrocortisone 1% per package instructions. Continue antihistamines, warm/cold compress. Fevers, increased swelling, visual changes to ER. in this encounter Progress Notes * Gilda Hernández PA-C - 07/06/2017 10:55 AM EDT Formatting of this note may be different from the original. CC: Eye problem Nursing Notes: Yandy Dye LPN 07/06/17 1029 Signed Sanam Abarca is a 51 year old female who presents to walk-in clinic today complaining of R eye swelling around the eye, burning inside eye, redness and warm to touch beneath the eye, no injury to eyenoted Symptoms started about three days ago Pt has tried ice, allergy drops, allergy medication OTC This patient is brought in by no one. SUBJECTIVE: Sanam Abarca is a 51 year old female who is here to be evaluated for right eye problem that startedSunday when it became itchy. Then swelled. Swelling has improved. She thought maybe allergies and has tried allergy medication, cold/warm compress without help. Tried allergy eye drops, witch arlene without improvement. States swelling is much improved to prior. Itchy no real pain or burning. Previously warm to the touch but not painful. ROS: Constitutional symptoms: no fever, no weight loss, no weakness, no fatigue and no recent illness Ear ROS No ear pain, No drainage, No tinnitus or vertigo and No recent change in hearing Nose/Throat ROS No history of frequent colds or sinusitis, No nasal stuffiness, No history of Hay Fever and No significant epistaxis Mouth ROS No bleeding gums, No thrush or No sore throat Pulmonary ROS: No cough, sputum, or hemoptysis, No wheezing, No shortness of breath and No recent change in breathing Cardiovascular ROS: No chest pain, No shortness of breath, No dyspnea on exertion, No orthopnea, No paroxysmal nocturnal dyspnea, No edema, No palpitations and No syncope Gastrointestional ROS: No abdominal pain, No change in bowel habits, No significant heartburn, No significant change in appetite, No nausea, vomiting, diarrhea, or constipation, No hematemesis, No blood in stools or black tarry stools, No abdominal bloating or early satiety and No dysphagia Skin/Integumentary ROS: As noted in HPI Symptom duration of 3 days but improving Recent illnesses in household: No HISTORY: Past Medical History: Diagnosis Date Allergic rhinitis FAM HX-DIABETES MELLITUS 12/29/2005 Mom.HTN INFORMATION 12/29/2005 Pt had hep B series and had titer 1-2 yrs ago, last PPD was feb 2005- neg per pt. OBESITY, UNSPECIFIED 12/29/2005 BMI: 32.01 kg/m PAP SCREEN ONLY (ROUTINE) 12/29/2005 Pap : 06-05, -, 08- neg IEL, had kiya in . SCREENING FOR MALIGNANT NEOPLASM,BREAST UNSPECIFIED 12/29/2005 Mammogram: 07-14-05: scattered fibroglandular densities.Baseline study. Past Surgical History: Procedure Laterality Date CARPAL TUNNEL SURGERY 10/24/02 Bilateral carpal tunnel release COLONOSCOPY, DIAGNOSTIC (RECTUM) N/A 08/02/2015 screening/recall 10 years/COLONOSCOPY FLEXIBLE PROXIMAL DIAGNOSTIC performed by Yu Matute DO at ENDOSCOPY [facility] KNEE ARTHROSCOPY/ARTHROPLASTY , Rt REPAIR OF ANKLE LIGAMENTS 09/2011 Rt--Dr Michel REPAIR SHOULDER CUFF AVULSION 07/03/14 Lt - Dr Reyna SINUS SURGERY PROCEDURE NEC 07/31/11 [place]--Rt & Lt total ethmoidectomy w/ rt & lt maxillary sinus antrostomy Social History Substance Use Topics Smoking status: Never Smoker Smokeless tobacco: Never Used Alcohol use Yes Comment: rare Current Outpatient Prescriptions Medication Sig Dispense Refill Ascorbic Acid (VITAMIN C) 1000 MG Tablet Take 1,000 mg by mouth daily. Aspirin 81 MG Tablet Take 1 Tab by mouth daily. Cholecalciferol (VITAMIN D3) 2000 UNITS Tablet Take 2,000 Units by mouth daily. Esomeprazole Magnesium (NEXIUM) 40 MG CPDR Take 1 Cap by mouth daily before breakfast. 30 Cap 0 HYDROcodone-acetaminophen 5-325 mg per tab 5-325 MG per tablet 1 Tab daily as needed. 0 Magnesium 500 MG Capsule Take 500 mg by mouth daily. MULTIVITAMINS PO CAPS daily 30 Cap 5 Potassium 95 MG TABS 1 Tab daily. zinc gluconate 50 MG Tablet Take 50 mg by mouth daily. Review of patient's allergies indicates: No Known Allergies OBJECTIVE: BP 124/76 | Pulse 66 | Temp (Src) 98.3 (Tympanic) | Resp 16 | Ht 5' 7" (1.702m) | Wt 231 lbs (104.781kg) | BMI 36.18 kg/m | BSA 2.23 m | SaO2 99% | LMP 06/08/2017 | ? No General: no acute distress, non-toxic Eyes: no proptosis, Periorbital inflammation with soft tissue fluctuant edema without heat or erythema, improving upper eye lid patrick, right pupil increased in size, reactive to light, vision normal, no orbital cellulitis, no orbital pain Lungs: clear to auscultation, no rhonchi, no wheezes and no crackles Heart: regular rate, regular rhythm, no murmurs , no rubs and no gallops Skin: skin color, texture, turgor are normal, Lesion as described in Eye Assessment: R22.0 Facial swelling (primary encounter diagnosis) Appears reactive in nature. Pt declined oral steroids. Advised to try OTC Hydrocortisone cream 1%. If worsens, affects vision, fevers develop, should be seen in ER. See PCP if fails to improve over 3-5 days. FOLLOWUP: Patient instructed to follow up with Primary Care Provider if no better in: 3-5 day(s), and immediately if signs and symptoms worsen Patient goals for plan of care were discussed There are no Patient Instructions on file for this visit. Gilda Hernández PA-C [address], [address] [facility] [address] in this encounter Nursing Notes * Yandy Dye LPN - 07/06/2017 10:25 AM EDT Sanam Abarca is a 51 year old female who presents to walk-in clinic today complaining of R eye swelling around the eye, burning inside eye, redness and warm to touch beneath the eye, no injury to eyenoted Symptoms started about three days ago Pt has tried ice, allergy drops, allergy medication OTC This patient is brought in by no one. in this encounter Plan of Treatment Upcoming Encounters Date Type Specialty Care Team Description 07/13/2017 Office Visit Podiatry Yamilka Gates, CORAL [address] [facility] [place] [address] Health Maintenance Due Date Last Done Comments PAP SMEAR-EVERY 3 YRS,AGES 21-65 03/26/2014 03/26/2011, 10/25/2008, 10/25/2007, Additional history exists LIPID SCREEN EVERY 5 YRS-WOM EN AGE 45-75 01/20/2015 01/20/2010, 03/26/2006 *DEPRESSION SCREENING, CHRISTOS Marsh FOR PTS 18 AND OVER 03/12/2015 DTaP,Tdap,and Td Vaccines (2 - Td) 12/30/2015 12/29/2005 BREAST CANCER SCREENING DISCUSSION YEARLY AGES 40-75 08/06/2017 08/06/2016, 07/31/2015, 10/03/2012, Additional history exists MAMMOGRAM-ANNUAL AGES 18-90 08/06/201707/10, 07/31/2015, 10/03/2012, Additional history exists Influenza Vaccine (FLU shot) (Season Ended) 2017 10/25/2008 DIABETES SCREEN EVERY 3 YRS- AGE 45 AND ABOVE 05/16/2019 05/15/2016, 11/23/2014, 05/06/2012, Additional history exists as of this encounter Implants Not on fileas of this encounter Visit Diagnoses Diagnosis Facial swelling - Primary Swelling, mass, or lump in head and neck in this encounter
--- OUTSIDE RECORDS SUMMARY | 2022-10-08 05:42 | External Medical Summary ---
Author Name Unknown Organization [id number] [place], [address] [place] [facility] [place] [address] Laboratory Report Ordering Provider Test Date Status ORI TEE PAC 11/21/2012 11:02:000400 Final Obs # Observation Date Value ABNL Reference Status Pe rforming Location 1 WBC 11/21/2012 11:31-0400 4.74 4.00-10.80 K/uL Final 2 RBC 11/21/2012 11:31-0400 4.19 3.85-5.15 M/uL Final 3 HGB 11/21/2012 11:31-0400 13.7 12.0-14.5 g/dL Final 4 HCT 11/21/2012 11:31-0400 40.5 36.0-44.5 % Final 5 MCV 11/21/2012 11:31-0400 96.7 81.5-97.5 fL Final 6 MCH 11/21/2012 11:31-0400 32.7 27.0-34.0 pg Final 7 MCHC 11/21/2012 11:31-0400 33.8 32.0-36.0 g/dL Final 8 RDW 11/21/2012 11:31-0400 12.8 11.5-15.5 % Final 9 PLT 11/21/2012 11:31-0400 268 140-400 K/uL Final 10 MPV 11/21/2012 11:31-0400 11.1 6.6-11.1 fL Final 11 diff type 11/21/2012 11:31-0400 AUTO Final 12 Segs 11/21/2012 11:33-0400 59 40-75 % Final 13 Lymphocytes 11/21/2012 11:33-0400 26 18-42 % Final 14 Monos 11/21/2012 11:33-0400 12 H 1-11 % Final 15 Eosinophils 11/21/2012 11:33-0400 2 0-6 % Final 16 Basos 11/21/2012 11:33-0400 1 0-2 % Final 17 Segmented Neutrophils, Abs 11/21/2012 11:33-0400 2.80 1.8-7.7 K/uL Final 18 Lymphs, Abs 11/21/2012 11:33-0400 1.23 1.0-4.8 K/uL Final 19 Monos, Abs 11/21/2012 11:33-0400 0.57 0.0-1.1 K/uL Final 20 Eos, Abs 11/21/2012 11:33-0400 0.09 0.0-0.7 K/uL Final 21 Basos, Abs 11/21/2012 11:33-0400 0.05 0.0-0.2 K/uL Final
--- OUTSIDE RECORDS SUMMARY | 2022-10-08 05:42 | External Medical Summary | Summary of Care ---
Author Name Unknown Organization [place] [address] Phone Care Team Providers Care Facilities Flight Check Pilot Name Role Phone Maya Martin PA-C Primary Care Pro vider Reason for Visit * Reason Comments FOLLOW UP Right plantar lesion Encounter Details Date Type Department Care Team Description 07/13/2017 Office Visit Podiatry, Patricia Da Silva [address], [address] [place] [address] Yamilka Gates, DPM [address] [place] [address] Soft tissue lesion of foot* [...] cerv ix 12/29/2005 Overview: Neg--03/22;; : no IEL.--[id number].--10/25/2008--neg,Rpt in 3 yrs.(unless chg H) Pap : 07-13, 09-10, 09-09 neg IEL, had kiya in . Screening for malignant neoplasm of amita st 12/29/2005 Overview: NEG--11/18;; 11/17--same 10/02/2008 [facility]---neg 09-15--[facility]--same. Mammogram: 07-14-05: scattered fibroglandular densities.Baseline study. FAM [...] Duodenitis On EGD 1985. Per pt at [facility] hosp. Other allergic rhinitis 08/31/2003 Overview: [...] Progress Notes * Yamilka Gates, CORAL - 07/13/2017 3:29 PM EDT Formatting of this note may be different from the original. Podiatry Established Note [facility] Name: Sanam Abarca : 1965 Date: 07/13/2017 REASON FOR VISIT: Right plantar foot lesion SUBJECTIVE: This patient is a 51 year old female who presents today for follow up of right plantar foot lesion. Some mild pain today and sensitivity. Overall doing well. No other issues or complaints. Past Medical History: Diagnosis Date Allergic rhinitis FAM HX-DIABETES MELLITUS 12/29/2005 Mom.HTN INFORMATION 12/29/2005 Pt had hep B series and had titer 1-2 yrs ago, last PPD was feb 2005- neg per pt. OBESITY, UNSPECIFIED 12/29/2005 BMI: 32.01 kg/m PAP SCREEN ONLY (ROUTINE) 12/29/2005 Pap : 06-05, -, - neg IEL, had kiya in 02. SCREENING FOR MALIGNANT NEOPLASM,BREAST UNSPECIFIED 12/29/2005 Mammogram: [...] within normallimits. No open wounds or abrasions. +wart-like lesion to the plantar aspect of the right foot around the area of the 2nd metatarsal- resolved. DIAGNOSTIC STUDIES: None ASSESSMENT: 1. Right foot lesion. PLAN: Patient seen and examined. Wart resolved Follow up PRN. Yamilka Gates DPM in this encounter Nursing Notes * Antionette Miller MED ASSIST - 07/13/2017 3:27 PM EDT Right plantar lesion. Pt denies pain, but stated her skin is getting sensitive around the area. YEIMI Huitron in this encounter Plan of [...]
--- OUTSIDE RECORDS SUMMARY | 2022-10-08 05:42 | External Medical Summary | Summary of Care ---
Author [place] [address] Care Team Providers Care Contingents Supervisor Name Role Phone Maya Martin PA-C Primary Care Pro vider Encounter Details Date Type Department Care Team Description 07/26/2018 Orders Only Radiology, [facility] [address] [place] [address] Requisition, External Radiology [address] [place] [address] Encounter for screening mammogram for malignant neoplasm of breast* Allergies No Known Allergiesdocumented as of this encounter (statuses as of 07/26/2018) Medications Medication Sig Dispensed Refills Start Date End Date Status MULTIVITAMINS PO CAPS daily 30 Cap 5 03/09/2014 Active HYDROcodone-acetaminop hen 5-325 mg per tab 5-325 MG per tablet 1 Tab daily as needed. 0 08/07/2014 Active Aspirin 81 MG Tablet Take 1 Tab by mouth daily. 0 Active Magnesium 500 MG Capsule Take 500 mg by mouth daily. 0 Active Cholecalciferol (VITAMIN D3) 2000 UNITS Tablet Take 2,000 Units by mouth daily. 0 Active Potassium 95 MG TABS 1 Tab daily. 0 Ac tive Esomeprazole Magnesium (NEXIUM) 40 MG CPDR Take 1 Cap by mouth daily before breakfast. 30 Cap 0 05/15/2016 Active zinc gluconate 50 MG Tablet Take 50 mg by mouth daily. 0 Active Ascorbic Acid (VITAMIN C) 1000 MG Tablet Take 1,000 mg by mouth daily. 0 Active documented as of this encounter (statuses as of 07/26/2018) Active Problems Problem Noted Date History of arthroscopic procedure on sindy roy 08/17/2014 Overview: Lt-07/03/14 Other chronic allergic conjunctivitis Ankle joint pain 09/18/2011 Overview: Rt---had fall 11/18--Shaun --had MRI ---fu 09/23/11----had sg end 09/19 Migraine with aura 01/28/2010 DIFFUS CYSTIC MASTOPATHY 10/25/2007 Screening for malignant neoplasm of cerv ix 12/29/2005 Overview: Neg--03/22;; : no IEL.--[id number].--10/25/2008--neg,Rpt in 3 yrs.(unless chg H) Pap : 07-13, 09-10, 09-09 neg IEL, had kiya in . Screening for malignant neoplasm of amita st 12/29/2005 Overview: NEG--11/18;; 11/17--same 10/02/2008 [facility]---neg 09-15--[facility]--same. Mammogram: 07-14-05: scattered fibroglandular densities.Baseline study. [...] Duodenitis On EGD 1985. Per pt at [facility]. Other allergic rhinitis 08/31/2003 Overview: Spring-fall sinus sg [place] 07/31/11 ICD-10 update of inactive term documented as of this encounter (statuses as of 07/26/2018) Resolved Problems Problem Noted Date Resolved Date Encounter for supervision of other normal pregna ncy 12/19/2001 05/16/2002 Overview: ICD-10 update of inactive term Elderly multigravida with an tepartum condition or complication 10/07/2001 05/16/2002 POLYCYSTIC OVARIES - Dr Cee 0 10/07/2001 documented as of this encounter (statuses as of 07/26/2018) Immunizations Name Administration Dates Next Due Methylprednisolone [...] Encounters Date Type Specialty Care Team Description 08/31/2018 Appointment Radiology Scheduled Orders Name Type Priority Associated Diagnoses Orde r Schedule MAMMOGRAM SCREENING BILATERAL Medical Imaging Routine Encounter for screening mammogram for malignant neoplasm of breast Ordered: 07/26/2018 Health Maintenance Due Date Last Done Comments PAP SMEAR-EVERY 3 YRS,AGES 21-65 03/26/2014 03/26/2011, 10/25/2008, 10/25/2007, Additional history exists LIPID SCREEN EVERY 5 YRS-WOMEN AGE 45-75 01/20/2015 01/20/2010, 03/26/2006 *DEPRESSION SCREENING, ANNUAL FOR PTS 18 AND OVER 03/12/2015 DTaP,Tdap,and Td Vaccines (2 - Td) 12/30/2015 12/29/2005 BREAST CANCER SCREENING DISCUSSION YEARLY AGES 40-75 08/06/2017 08/06/2016, 07/31/2015, 10/03/2012, Additional history exists MAMMOGRAM-ANNUAL AGES 18-90 08/06/201707/10, 07/31/2015, 10/03/2012, Additional history exists Influenza Vaccine (FLU shot) (Season Ended) 2018 10/25/2008 DIABETES SCREEN EVERY 3 YRS-AGE 45 AND ABOVE 05/16/2019 05/15/2016, 11/23/2014, 05/06/2012, Additional history exists MENINGOCOCCAL (MENACTRA) Aged Out No longer eligible based on patient's age to complete this topic documented as of this encounter Implants Not on filedocumented as of this encounter Visit Diagnoses Diagnosis Encounter for screening mammogram for malignant neoplasm of breast- Primary Other screening mammogram documented in this encounter Advance Directives Documents on File Type Date Recorded Patient Body And Frame Man Expl anation Advanced Directive Advanced Directive Advanced Directive Advanced Directive Advanced Directive Advanced Directive Advanced Directive Advanced Directive Advanced Directive Advanced Directive Advanced Directive 09/30/2017 7:14 AM
--- OUTSIDE RECORDS SUMMARY | 2022-10-08 05:42 | External Medical Summary | Summary of Care ---
Author Name Unknown Organization [place] [address] Phone Care Team Providers Care Unix Manager Name Role Phone Maya Martin PA-C Primary Care Pro vider Reason for Visit * Reason Comments FOLLOW UP Right plantar lesion Encounter Details Date Type Department Care Team Description 06/14/2017 Office Visit Podiatry, [facility] [address], [address] [place] [address] Yamilka Gates, DPM [address] [place] [address] Soft tissue lesion of foot* [...] cerv ix 12/29/2005 Overview: Neg--03/22;; : no IEL.--[id number].--10/25/2008--neg,Rpt in 3 yrs.(unless chg H) Pap : 07-13, 09-10, 09-09 neg IEL, had kiya in . Screening for malignant neoplasm of amita st 12/29/2005 Overview: NEG--11/18;; 11/17--same 10/02/2008 [facility]---neg 09-15--[facility]--same. Mammogram: 07-14-05: scattered fibroglandular densities.Baseline study. [...] Duodenitis On EGD 1985. Per pt at [facility]. Other allergic rhinitis 08/31/2003 Overview: Spring-fall sinus [...] Progress Notes * Yamilka Gates, CORAL - 06/14/2017 3:22 PM EDT Formatting of this note may be different from the original. Podiatry Established Note [facility] Name: Sanam Abarca : 1965 Date: 06/14/2017 REASON FOR VISIT: Right plantar foot lesion SUBJECTIVE: This patient is a 51 year old female who presents today for follow up of right plantar foot lesion. Some mild pain today. States she noted several weeks ago the lesion returning. No othertreatment. Past Medical History: Diagnosis Date Allergic rhinitis FAM HX-DIABETES MELLITUS 12/29/2005 Mom.HTN INFORMATION 12/29/2005 Pt had hep B series and had titer 1-2 yrs ago, last PPD was feb 2005- neg per pt. OBESITY, UNSPECIFIED 12/29/2005 BMI: 32.01 kg/m PAP SCREEN ONLY (ROUTINE) 12/29/2005 Pap : 06-05, 08-, 08- neg IEL, had kiya in 02. SCREENING [...] foot around the area of the 2nd metatarsal. DIAGNOSTIC STUDIES: None ASSESSMENT: 1. Right foot lesion. PLAN: Patient seen and examined. Canthrone applied to lesion Pt instructed to keep dressing C/D/I for 48 hours then ok to remove and shower. Patient instructed on anticipated macerated appearance and of blister formation. Leave open to air or cover with band aid. Recommended lysol to all current shoe gear. Discussed possible future treatments if no improvement including laser or oral options. F/u in 2 weeks. Yamilka Gates DPM in this encounter Nursing Notes * Antionette Miller MED ASSIST - 06/14/2017 2:29 PM EDT Right plantar lesion returned. Pt stated she has pain and noted her pain is a 2 out of 10. Antionette L Imes, MED ASSIST in this encounter Plan of Treatment Upcoming Encounters Date Type Specialty Care Team Description 06/29/2017 Office Visit Podiatry Yamilka Gates, CORAL [address] [place] [address] Scheduled Tests Name Priority Associated Diagnoses Order S chedule BENIGN LESION DESTRUCTION, UP TO 14 LESIONS Routine Soft tissue lesion of foot Ordered: 06/14/2017 Health Maintenance Due Date Last Done Comments [...]
--- OUTSIDE RECORDS SUMMARY | 2022-10-08 05:42 | External Medical Summary | Summary of Care ---
Author [place] [address] Phone Care Team Providers Care Fruit Buyer Name Role Phone Maya Martin PA-C Primary Care Pro vider Encounter Details Date Type Department Care Team Description 07/23/2016 Orders Only Radiology, [facility] [address] [place] [address] Requisition, External Radiology [address] [place] [address] Encounter for screening mammogram for malignant neoplasm of breast* Allergies No Known Allergiesas of this encounter [...] before breakfast. 30 Cap 0 05/15/2016 Active as of this encounter Active Problems Problem Noted Date History of arthroscopic procedure on sindy ulder 08/17/2014 Overview: Lt-07/03/14 Other chronic allergic conjunctivitis Ankle joint pain 09/18/2011 Overview: Rt---had fall 11/18--Shaun --had MRI ---fu 09/23/11----had sg end 09/19 Migraine with aura 01/28/2010 DIFFUS CYSTIC MASTOPATHY 10/25/2007 Screening for malignant neoplasm of cerv ix 12/29/2005 Overview: Neg--03/22;; : no IEL.--[id number].--10/25/2008--neg,Rpt in 3 yrs.(unless chg H) Pap : 07-13, 09-10, 09-09 neg IEL, had kiya in . Screening for malignant neoplasm of amita st 12/29/2005 Overview: NEG--11/18;; 11/17--same 10/02/2008 [facility]---neg 09-15--[facility]--same. Mammogram: 07-14-05: scattered fibroglandular densities.Baseline study. [...] abd., nml CBC, CMP,amylase. Nml GB US march06. Duodenitis On EGD 1985. Per pt at [facility]. Other allergic rhinitis 08/31/2003 Overview: Spring-fall sinus sg [place] 07/31/11 ICD-10 update of inactive term as [...] Not on file as of this encounter Plan of Treatment Health Maintenance Due Date Last Done Comments PAP SMEAR-EVERY 3 YRS,AGES 21-65 03/26/2014 03/26/2011, 10/25/2008, 10/25/2007, Additional history exists LIPID SCREEN EVERY 5 YRS-WOM EN AGE 45-75 01/20/2015 01/20/2010, 03/26/2006 *DEPRESSION SCREENING, ANNUA L FOR PTS 18 AND OVER 03/12/2015 DTaP,Tdap,and Td Vaccines (2 - Td) 12/30/2015 12/29/2005 BREAST CANCER SCREENING DISCUSSION YEARLY AGES 40-75 08/06/2017 08/06/2016, 07/31/2015, 10/03/2012, Additional history exists MAMMOGRAM-ANNUAL AGES 18-90 08/06/201707/10, 07/31/2015, 10/03/2012, Additional history exists Influenza Vaccine (FLU shot) (#1) 2017 009 DIABETES SCREEN EVERY 3 YRS- AGE 45 AND ABOVE 05/16/2019 05/15/2016, 11/23/2014, 05/06/2012, Additional history exists as of this encounter Implants Not on fileas of this encounter Results * MAMMOGRAM, SCREENING, BILAT (08/06/2016 10:40 AM) Specimen Performing Laborator [facility] [address] [place] [address] Impressions IMPRESSION: BILATERAL BREASTS: Benign, no evidence of malignancy. Normal interval follow-up is recommended in 12 months. OVERALL ASSESSMENT - CATEGORY 2 - BENIGN END OF IMPRESSION This digital mammogram has been analyzed with the computer aided detection system. Note: Approximately 10% of breast cancers are not detected on mammography. A negative mammographic report should not delay biopsy if a clinically suggestive mass is present. This notice contains the results of your recent mammogram, including information about breast density. If your mammogram shows that your breast tissue is dense, you should know that dense breast tissue is a common finding and is not abnormal. Statistics show many women could have dense or highly dense breasts. Dense breast tissue can make it harder to find cancer on a mammogram and may be associated with an increased risk of cancer. This information about the result of your mammogram is given to you to raise your awareness and to inform your conversations with your physician. Together, you can decide which screening options are right for you, based on your mammogram results, individual risk factors or Physical examination. A report of your results was sent to your physician. Your mammographic breast density on today's study is described above. There are four categories of breast density on mammography. Fatty breasts and those with scattered fibroglandular tissue are not considered dense. Heterogeneously dense or extremely dense tissue is considered "dense". Please understand that assessment of breast density may vary from year to year. Narrative Comparison is made to images from 07/31/2015 (bilateral) and images from 11/14/2010 (bilateral) and images from 11/13/2009 (bilateral) and images from 10/02/2008. There is no significant interval change. Bilateral Breast Findings: There are scattered fibroglandular densities (25% - 50% fibroglandular).There are no suspicious calcifications, masses, or other abnormalities. Authenticated By Authenticating DateAuthenticating TimeReading Providers(s) KARINA PEDERSON06-29-2017 16:50KARINA PEDERSON Procedure Note Interface, Rad In - 08/06/2016 4:50 PM EDT Comparison is made to images from 07/31/2015 (bilateral) and images from11/14/2010 (bilateral) and images from 11/13/2009 (bilateral) and images from 10/02/2008. There is nosignificant interval change. Bilateral Breast Findings: There are scattered fibroglandular densities (25% - 50%fibroglandular).There are no suspicious calcifications, masses, or other abnormalities. Authenticated By Authenticating Date AuthenticatingTime Reading Providers(s) KALI WHITAKER MD 08-06-2016 16:50KALI WHITAKER MD IMPRESSION IMPRESSION: BILATERAL BREASTS: Benign, no evidence of malignancy. Normal intervalfollow-up is recommended in 12 months. OVERALL ASSESSMENT - CATEGORY 2 - BENIGN END OF IMPRESSION This digital mammogram has been analyzed with the computer aided detectionsystem. Note: Approximately 10% of breast cancers are not detected on mammography.A negative mammographic report should not delay biopsy if a clinically suggestive mass is present. This notice contains the results of your recent mammogram, includinginformation about breast density. If your mammogram shows that your breast tissue is dense, you should knowthat dense breast tissue is a common finding and is not abnormal. Statistics show many women could have denseor highly dense breasts. Dense breast tissue can make it harder to find cancer on a mammogram and may beassociated with an increased risk of cancer. This information about the result of your mammogram is given toyou to raise your awareness and to inform your conversations with your physician. Together, you can decidewhich screening options are right for you, based on your mammogram results, individual risk factors or Physicalexamination. A report of your results was sent to your physician. Your mammographic breast density on today's study is described above.There are four categories of breast density on mammography. Fatty breasts and those with scatteredfibroglandular tissue are not considered dense. Heterogeneously dense or extremely dense tissue is considered"dense". Please understand that assessment of breast density may vary from year to year. in this encounter Visit Diagnoses Diagnosis Encounter for screening mamm ogram for malignant neoplasm of breast - Primary Other screening mammogram in this encounter
--- OUTSIDE RECORDS SUMMARY | 2022-10-08 05:42 | External Medical Summary | Summary of Care ---
Author Name Unknown Organization [place] [address] Phone Care Team Providers Care Release And Technical Records Clerk Name Role Phone Maya Martin PA-C Primary Care Pro vider Reason for Visit * Reason Comments FOLLOW UP Right plantar lesion Encounter Details Date Type Department Care Team Description 06/29/2017 Office Visit Podiatry, [facility] [address], [address] [place] [address] Yamilka Gates, DPM [address] [place] [address] Soft tissue lesion of foot* [...] cerv ix 12/29/2005 Overview: Neg--03/22;; : no IEL.--[id number].--10/25/2008--neg,Rpt in 3 yrs.(unless chg H) Pap : 07-13, 09-10, 09-09 neg IEL, had kiya in . Screening for malignant neoplasm of amita st 12/29/2005 Overview: NEG--11/18;; 11/17--same 10/02/2008 [facility]---neg 09-15--[facility]--same. Mammogram: 07-14-05: scattered fibroglandular densities.Baseline study. FAM [...] Duodenitis On EGD 1985. Per pt at [facility]. Other allergic rhinitis 08/31/2003 Overview: Spring-fall sinus sg [facility] 07/31/11 ICD-10 update of inactive term as [...] Progress Notes * Yamilka Gates, CORAL - 06/29/2017 3:56 PM EDT Formatting of this note may be different from the original. Podiatry Established Note [facility] Name: Sanam Abarca : 1965 Date: 06/29/2017 REASON FOR VISIT: Right plantar foot lesion SUBJECTIVE: This patient is a 51 year old female who presents today for follow up of right plantar foot lesion. Some mild pain today. States she did have some blistering and burning after her last appointment. No other treatment. Past Medical History: Diagnosis Date Allergic rhinitis FAM HX-DIABETES MELLITUS 12/29/2005 Mom.HTN INFORMATION 12/29/2005 Pt had hep B series and had titer 1-2 yrs ago, last PPD was feb 2005- neg per pt. OBESITY, UNSPECIFIED 12/29/2005 BMI: 32.01 kg/m PAP SCREEN ONLY (ROUTINE) 12/29/2005 Pap : -, -, - neg IEL, [...] in this encounter Nursing Notes * Antionette Miller, MED ASSIST - 06/29/2017 3:52 PM EDT Right plantar lesion. Pt stated she is still having pain and rated her pain as a 2 out of 10. She stated she did have a blister form following her last visit, and stated she was unable to walk on herfoot for about 5 days. YEIMI Huitron ASSIST in this encounter Plan of Treatment Upcoming Encounters Date Type Specialty Care Team Description 07/13/2017 Office Visit Podiatry Yamilka Gates, DPM [address] [place] [address] Scheduled Tests Name Priority Associated Diagnoses Order S chedule BENIGN LESION DESTRUCTION, UP TO 14 LESIONS Routine Soft tissue lesion of foot Ordered: 06/29/2017 Health Maintenance Due Date Last Done Comments [...]
--- OUTSIDE RECORDS SUMMARY | 2022-10-08 05:42 | External Medical Summary | Summary of Care ---
Author Name Unknown Organization [place] [address] Phone Care Team Providers Care Caustic Pump Operator Name Role Phone Maya Martin PA-C Primary Care Pro vider Reason for Visit * Reason Comments NEW PATIENT Right plantar lesion Encounter Details Date Type Department Care Team Description 03/02/2017 Office Visit Podiatry, Patricia Da Silva [address], [address] [place] [address] Yamilka Gates, DPM [address] [place] [address] Soft tissue lesion of foot* Allergies No Known Allergiesas of this encounter Medications Prescription Sig. Disp. Refills Start Date End Date Status MULTIVITAMINS PO CAPS daily 30 Cap 5 03/09/2014 Active HYDROcodone-acetamin ophen 5-325 mg per tab 5-325 MG per [...] Take 1,000 mg by mouth daily. Active GLUCOSAMINE 1500 COMPLEX PO CAPS 2 daily 0 0 10/25/2008 03/02/2017 Discontinued Celecoxib (CELEBREX) 50 MG CAPS once. 03/02/2017 Discontinued as of this encounter Active Problems Problem Noted Date History of arthroscopic procedure on sindy roy 08/17/2014 Overview: Lt-07/03/14 Other chronic allergic conjunctivitis Ankle joint pain 09/18/2011 Overview: Rt---had fall 11/18--Shaun --had MRI ---fu 09/23/11----had sg end 09/19 Migraine with aura 01/28/2010 DIFFUS CYSTIC MASTOPATHY 10/25/2007 Screening for malignant neoplasm of cerv ix 12/29/2005 Overview: Neg--03/22;; : no IEL.--xjd02-feb.--10/25/2008--neg,Rpt in 3 yrs.(unless chg H) Pap : 07-13, 09-10, 09-09 neg IEL, had kiya in . Screening for malignant neoplasm of amita st 12/29/2005 Overview: NEG--11/18;; 11/17--same 10/02/2008 [facility]neg 09-15--[facility]--same. Mammogram: 07-14-05: scattered fibroglandular densities.Baseline study. [...] Duodenitis On EGD 1985. Per pt at [facility] hosp. Other allergic rhinitis 08/31/2003 [...] Vital Sign Reading Time Taken Blood Pressure - - Pulse - - Temperature - - Respiratory Rate - - Oxygen Saturation - - Inhaled Oxygen Concentration - - Weight 104.1 kg (229 lb 8 oz) 8 3:36 PM EST Height 170.2 cm (5' 7") 03/02/2017 3:36 PM EST Body Mass Index 35.94 03/02/2017 3:36 PM EST in this encounter Progress Notes * Yamilka Gates DPM - 03/04/2017 10:16 AM EST Formatting of this note may be different from the original. Podiatry New Patient Note [facility] [place] Name: Sanam Abarca : 1965 Date: 03/02/2017 Referring: Maya Martin PA-C CHIEF COMPLAINT: Right plantar foot lesion HISTORY OF PRESENT ILLNESS: This patient is a 51 year old female who presents today with complaintsof right plantar foot lesion. Pt states the lesion has been present for about 4 months. She states she has been using OTC wart medications with minimal relief. She states the lesion is painful with ambulation. Rates the pain a 2 out of 10. Describes the pain as achy. No other associated symptoms. Past Medical History: Diagnosis Date Allergic rhinitis FAM HX-DIABETES MELLITUS 12/29/2005 Mom.HTN INFORMATION 12/29/2005 Pt had hep B series and had titer 1-2 yrs ago, last PPD was feb 2005- neg per pt. OBESITY, UNSPECIFIED 12/29/2005 BMI: 32.01 kg/m PAP SCREEN ONLY (ROUTINE) 12/29/2005 Pap : -, -, 09-09 neg IEL, had kiya in . SCREENING FOR MALIGNANT NEOPLASM,BREAST UNSPECIFIED 12/29/2005 Mammogram: 07-14-05: scattered fibroglandular densities.Baseline study. Past Surgical History: Procedure Laterality Date CARPAL TUNNEL SURGERY 10/24/02 Bilateral carpal tunnel release COLONOSCOPY, DIAGNOSTIC (RECTUM) N/A 08/02/2015 screening/recall 10 years/COLONOSCOPY FLEXIBLE PROXIMAL DIAGNOSTIC performed by Yu Matute DO at ENDOSCOPY [facility] KNEE ARTHROSCOPY/ARTHROPLASTY , Rt REPAIR OF ANKLE LIGAMENTS 09/2011 Rt--Dr Michel REPAIR SHOULDER CUFF AVULSION 07/03/14 Lt - Dr Reyna SINUS SURGERY PROCEDURE NEC 07/31/11 [place]--Rt & Lt total ethmoidectomy w/ rt & lt maxillary sinus antrostomy Family History Problem Relation Age of Onset Diabetes Mother Hypertension Mother Asthma Father hypothyroidism Heart Disorder Father MVR Cancer Maternal Grandfather colon ca age 50,s No Past Hx Brother x2 Social History Social History Marital status: Spouse name: [place] Number of children: 1 Years of education: N/A 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 Social History Narrative Current Outpatient Prescriptions Medication Sig Dispense Refill zinc gluconate 50 MG Tablet Take 50 mg by mouth daily. Ascorbic Acid (VITAMIN C) 1000 MG Tablet Take 1,000 mg by mouth daily. Esomeprazole Magnesium (NEXIUM) 40 MG CPDR Take 1 Cap by mouth daily before breakfast. 30 Cap 0 Magnesium 500 MG Capsule Take 500 mg by mouth daily. Cholecalciferol (VITAMIN D3) 2000 UNITS Tablet Take 2,000 Units by mouth daily. Potassium 95 MG TABS 1 Tab daily. Aspirin 81 MG Tablet Take 1 Tab by mouth daily. MULTIVITAMINS PO CAPS daily 30 Cap 5 HYDROcodone-acetaminophen 5-325 mg per tab 5-325 MG per tablet 1 Tab daily as needed. 0 ALLERGIES: Review of patient's allergies indicates: No Known Allergies REVIEW OF SYSTEMS: Constitutional: Negative for fever, activity change and appetite change. Respiratory: Negative for shortness of breath. Cardiovascular: Negative for chest pain and leg swelling. Gastrointestinal: Negative for nausea, vomiting, abdominal pain and constipation. Musculoskeletal: Negative for joint swelling, arthralgias and gait problem. Skin: Negative for color change, rash and wound. Neurological: Negative for dizziness, weakness and numbness. FOCUSED PODIATRIC EXAM: Vitals: Filed Vitals: 03/02/17 1536 Weight: 104.1 kg (229 lb 8 oz) Height: 1.702 m (5' 7") General: Patient is awake alert oriented to person place time. No apparent distress. Vascular: Pedal pulses are palpable. CFT<3sec. +pedal hair. No edema noted. Neurologic: Vibratory and sharp/dull sensation intact. Protective sensation intact with 5.07 monofilament. Proprioceptive sensation intact. Light touch sensation is intact. Musculoskeletal: MMT 5/5 with no pain on ROM in dorsiflexion, plantarflexion, inversion and eversion to both lower extremities. Around 10 degrees dorsiflexion with the knee extended and flexed. Diminished ankle joint, subtalar joint, midtarsal joint, and metatarsophalangeal joint range of motion. No gross deformities, masses or abnormalities noted. No defect or loss of arch height, no acute deformity, no bruisingor swelling. Dermatological: Normal proximal to distal cooling [...] Notes * Antionette Miller MED ASSIST - 03/02/2017 3:38 PM EST Right plantar lesion that has been present and painful for about 4 months. Pain is a 2 out of 10. YEIMI Huitron in this encounter Plan of Treatment Upcoming Encounters Date Type Specialty Care Team Description 03/16/2017 Office Visit Podiatry Yamilka Gates DPM [address] [facility] [place] [address] Scheduled Tests Name Priority Associated Diagnoses Order S chedule BENIGN LESION DESTRUCTION, UP TO 14 LESIONS Routine Soft tissue lesion of foot Ordered: 03/04/2017 Health Maintenance Due Date Last Done Comments PAP SMEAR-EVERY 3 YRS,AGES 21-65 03/26/2014 03/26/2011, 10/25/2008, 10/25/2007, Additional history exists LIPID SCREEN EVERY 5 YRS-WOM EN AGE 45-75 01/20/2015 01/20/2010, 03/26/2006 *DEPRESSION SCREENING, CHRISTOS Marsh FOR PTS 18 AND OVER 03/12/2015 TETANUS EVERY 10 YRS-TDAP (BOOSTRIX/ADACEL) SUGGESTED IF NOT RECEIVED IN PAST 12/30/2015 12/29/2005 Influenza Vaccine (FLU shot) (#1) 2016 009 BREAST CANCER SCREENING DISCUSSION YEARLY AGES 40-75 08/06/2017 08/06/2016, 07/31/2015, 10/03/2012, Additional history exists MAMMOGRAM-ANNUAL AGES 18-90 08/06/201707/10, 07/31/2015, 10/03/2012, Additional history exists DIABETES SCREEN EVERY 3 YRS- AGE 45 AND ABOVE 05/16/2019 05/15/2016, 11/23/2014, 05/06/2012, Additional history exists COLONOSCOPY-EVERY 10 YRS AGE S 50-75 08/01/2025 08/02/2015, 08/02/2015 as of this encounter Implants Not on fileas of this encounter Visit Diagnoses Diagnosis Soft tissue lesion of foot - Primary in this encounter Insurance Payer Benefit Plan / Group Subscriber ID Type Phone Address [employer] LISET IVORY [id number] 1 as of this encounter
--- OUTSIDE RECORDS SUMMARY | 2022-10-08 05:42 | External Medical Summary | Summary of Care ---
Author Name Unknown Organization [place] [address] Phone Care Team Providers Care Middleware Consultant Name Role Phone Maya Martin PA-C Primary Care Pro vider Reason for Visit * Reason Comments FOLLOW UP Right foot plantar l esion Encounter Details Date Type Department Care Team Description 03/16/2017 Office Visit Podiatry, Patricia Da Silva [address], [address] [place] [address] Yamilka Gates, DP [address] [place] [address] Soft tissue lesion of foot* [...] cerv ix 12/29/2005 Overview: Neg--03/22;; : no IEL.--[id number]-zpb.--10/25/2008--neg,Rpt in 3 yrs.(unless chg H) Pap : -05, -, - neg IEL, had kiya in . Screening for malignant neoplasm of amita st 12/29/2005 Overview: NEG--11/18;; 11/17--same 10/02/2008 [facility] [place]---neg 09-15--[facility]--same. Mammogram: 07-14-05: scattered fibroglandular densities.Baseline study. [...] Duodenitis On EGD 1985. Per pt at [facility] hosp. Other allergic rhinitis 08/31/2003 [...] of this encounter Progress Notes * Yamilka Gates DPM - 03/17/2017 8:50 AM EST Formatting of this note may be different from the original. Podiatry Established Note [facility] [place] Name: Sanam Abarca : 1965 Date: 03/16/2017 REASON FOR VISIT: Right plantar foot lesion SUBJECTIVE: This patient is a 51 year old female who presents today for follow up of right plantar foot lesion. Some mild pain today. States she did have some blistering and burning following the last appointment. No new areas of concern. Past Medical History: Diagnosis Date Allergic rhinitis FAM HX-DIABETES MELLITUS 12/29/2005 Mom.HTN INFORMATION 12/29/2005 Pt had hep B series and had titer 1-2 yrs ago, last PPD was feb 2005- neg per pt. OBESITY, UNSPECIFIED 12/29/2005 BMI: 32.01 kg/m PAP SCREEN ONLY (ROUTINE) 12/29/2005 Pap : 06-, 08-, 08- neg IEL, had kiya in . [...] Notes * Antionette Miller MED ASSIST - 03/16/2017 3:41 PM EST Right foot plantar lesion. Pt stated she is having pain today. Antionette L Imes, MED ASSIST in this encounter Plan of Treatment Upcoming Encounters Date Type Specialty Care Team Description 03/30/2017 Office Visit Podiatry Yamilka Gates, CORAL [address] [place] [address] Scheduled Tests Name Priority Associated Diagnoses Order S chedule BENIGN LESION DESTRUCTION, UP TO 14 LESIONS Routine Soft tissue lesion of foot Ordered: 03/17/2017 Health Maintenance Due Date Last Done Comments [...] / Group Subscriber ID Type Phone Address [employer] LISET IVORY [id number] 1 as of this encounter
--- OUTSIDE RECORDS SUMMARY | 2022-10-08 05:43 | External Medical Summary ---
Author Name APOLONIA PEDERSON Organization K01:[place] [address] [address] Support Name Relationship Address Phone APOLONIA PEDERSON, MASON PROV Unknown Un available Laboratory Report Ordering Provider Test Date Status MASON BARKSDALE MD 05/06/2012 07:02:00-040 0 Final Obs # Observation Date Value ABNL Reference Status Pe rforming Location 1 JODI, RADHA Screen 05/09/2012 11:06-0400 NEGATIVE Final
--- OUTSIDE RECORDS SUMMARY | 2022-10-08 05:43 | External Medical Summary ---
Author Name Unknown Organization [facility] tem Support Name Relationship Address Phone MASON BARKSDALE MD Unknown Michelle vailable Laboratory Report Ordering Provider Test Date Status MASON BARKSDALE MD 01/20/2010 08:00-0500 F Obs # Observation Date Value ABNL Reference Status Pe rforming Location 1 HOURS FASTING 0 09:02-050 0 12 hours Final 2 Trigl SerPl-nc 0 17:13-050 0 62 45-230 mg/dL Final 3 Cholest SerPl-nc 0 17:13-050 0 169 <200 mg/dL Final 4 HDLc SerPl-nc 0 17:13-050 0 66 H 40-59 mg/dL Final 5 Cholest/HDLc SerPl-to 0 17:13-050 0 2.6 Final 6 LDLc SerPl Calc-nc 0 17:13-050 0 91 0-129 mg/dL Final 7 LDLc SerPl Calc-mCnc 0 17:13-050 0 Final 8 LDLc SerPl Calc-mCnc 0 17:13-050 0 LIPID PANEL REFERENCE RANGES (mg/dL) Final 9 LDLc SerPl Calc-mCnc 0 17:13-050 0 Final 10 LDLc SerPl Calc-mCnc 0 17:13-050 0 LDL CHOLESTEROL Final 11 LDLc SerPl Calc-mCnc 0 17:13-050 0 <100 OPTIMAL GOAL FOR HIGH RISK PATIENTS Final 12 LDLc SerPl Calc-mCnc 0 17:13-050 0 100-129 NEAR OR ABOVE NORMAL Final 13 LDLc SerPl Calc-mCnc 0 17:13-050 0 130-159 BORDERLINE HIGH Final 14 LDLc SerPl Calc-[facility] 0 17:13-050 0 160-189 HIGH Final 15 LDLc SerPl Calc-[facility] 0 17:13-050 0 >189 VERY HIGH Final 16 LDLc SerPl Calc-[facility] 0 17:13-050 0 Final 17 LDLc SerPl Calc-[facility] 0 17:13-050 0 TOTAL CHOLESTEROL Final 18 LDLc SerPl Calc-[facility] 0 17:13-050 0 <200 DESIRABLE Final 19 LDLc SerPl Calc-[facility] 0 17:13-050 0 200-239 BORDERLINE HIGH Final 20 LDLc SerPl Calc[facility] 0 17:13-050 0 >239 HIGH Final 21 LDLc SerPl Calc-[facility] 0 17:13-050 0 Final 22 LDLc SerPl Calc-[facility] 0 17:13-050 0 HDL [id number] Final 23 LDLc SerPl Calc[facility] 0 17:13-050 0 <40 LOW Final 24 LDLc SerPl Calc-[facility] 0 17:13-050 0 40-59 NORMAL Final 25 LDLc SerPl Calc-[facility] 0 17:13-050 0 >59 HIGH Final
--- OUTSIDE RECORDS SUMMARY | 2022-10-08 05:43 | External Medical Summary ---
Author Name Unknown Organization K01:[facility], [address] [address] Laboratory Report Ordering Provider Test Date Status ORI OLIVEIRA PAC 11/21/2012 11:02:00-0400 Final Obs # Observation Date Value ABNL Reference Status Pe rforming Location 1 TSH 3 21:29-040 0 1.78 0.27-4.2 uIU/mL Final 2 FREE T4 REFLEXIVE 3 21:29-040 0 NOT APPLICABLE 0.7-1.7 Final
--- OUTSIDE RECORDS SUMMARY | 2022-10-08 05:43 | External Medical Summary ---
Author Name Unknown Organization [facility] tem Support Name Relationship Address Phone MASON BARKSDALE MD PROV Unknown Michelle vailable Laboratory Report Ordering Provider Test Date Status MASON BARKSDALE MD 01/20/2010 08:00-0500 F Obs # Observation Date Value ABNL Reference Status Pe rforming Location 1 WBC # Bld 01/20/2010 10:41-0500 4.96 4.00-10.80 K/uL Final 2 RBC # d 01/20/2010 10:41-0500 3.98 3.85-5.15 M/uL Final 3 Hgb Bld-nc 01/20/2010 10:41-0500 12.8 12.0-14.5 g/dL Final 4 Hct Fr Bld 01/20/2010 10:41-0500 37.6 36.0-44.5 % Final 5 MCV RBC Qn 01/20/2010 10:41-0500 94.5 81.5-97.5 fL Final 6 MCH RBC Qn 01/20/2010 10:41-0500 32.2 27.0-34.0 pg Final 7 MCHC RBC-nc 01/20/2010 10:41-0500 34.0 32.0-36.0 g/dL Final 8 RDW RBC Qn 01/20/2010 10:41-0500 13.4 11.5-15.5 % Final 9 Platelet # Bld 01/20/2010 10:41-0500 253 150-400 K/uL Final 10 PMV Bld Qn 01/20/2010 10:41-0500 12.2 H 6.6-11.1 fL Final
--- OUTSIDE RECORDS SUMMARY | 2022-10-08 05:43 | External Medical Summary ---
Author Name Unknown Organization K07:[facility], [address] [place] [facility] [place] [address] Laboratory Report Ordering Provider Test Date Status ORI CARRILLOWRIGHT PAC 11/21/2012 11:02:00-0400 Final Obs # Observation Date Value ABNL Reference Status Pe rforming Location 1 ESR 11/21/2012 11:44-0400 7 0-20 mm/hour Final
--- OUTSIDE RECORDS SUMMARY | 2022-10-08 05:43 | External Medical Summary ---
Author Name APOLONIA PEDERSON Organization K07:[address] [place] [address] Support Name Relationship Address Phone APOLONIA PEDERSON, MASON PROV Unknown Un available Laboratory Report Ordering Provider Test Date Status MASON BARKSDALE MD 09/15/2011 08:10:00-040 0 Final Obs # Observation Date Value ABNL Reference Status Pe rforming Location 1 HGB 09/15/2011 08:38-0400 13.1 12.0-14.5 g/dL Final
--- OUTSIDE RECORDS SUMMARY | 2022-10-08 05:43 | External Medical Summary ---
Author Name APOLONIA PEDERSON Organization K01:[place] [address] [address] Support Name Relationship Address Phone APOLONIA PEDERSON, MASON PROV Unknown Un available Laboratory Report Ordering Provider Test Date Status MASON BARKSDALE MD 09/15/2011 08:10:00-040 0 Final Obs # Observation Date Value ABNL Reference Status Pe rforming Location 1 TSH 09/15/2011 19:37-0400 1.78 0.27-4.2 uIU/mL Final
--- OUTSIDE RECORDS SUMMARY | 2022-10-08 05:43 | External Medical Summary ---
Author Name APOLONIA PEDERSON Organization K07:[address] [place] [address] Support Name Relationship Address Phone APOLONIA PEDERSON, MASON PROV Unknown Un available Laboratory Report Ordering Provider Test Date Status MASON BARKSDALE MD 05/06/2012 07:02:00-040 0 Final Obs # Observation Date Value ABNL Reference Status Pe rforming Location 1 Glucose 05/06/2012 10:11-0400 84 70-120 mg/dL Final
--- OUTSIDE RECORDS SUMMARY | 2022-10-08 05:43 | External Medical Summary ---
Author Name APOLONIA PEDERSON Organization K01:[place] [address] [address] Support Name Relationship Address Phone APOLONIA PEDERSON, MASON PROV Unknown Un available Laboratory Report Ordering Provider Test Date Status MASON BARKSDALE MD 05/06/2012 07:02:00-040 0 Final Obs # Observation Date Value ABNL Reference Status Pe rforming Location 1 Rheumatoid Factor 05/06/2012 19:34-0400 9 <14 IU/ml Final
--- OUTSIDE RECORDS SUMMARY | 2022-10-08 05:43 | External Medical Summary ---
Author Name Unknown Organization K01:[facility], [address] [id number] Laboratory Report Ordering Provider Test Date Status ORI TEE PAC 11/21/2012 11:02:00-0400 Final Obs # Observation Date Value ABNL Reference Status Pe rforming Location 1 LYME G/M AB 3 11:37-040 0 NEGATIVE NEG Final 2 B. burgdorferi IgG / IgM Index (Lyme Dz) 3 11:37-040 0 0.20 <0.91 INDEX Final 3 LYME G/M COMMENT 3 11:37-040 0 Lyme screen negative,per CDC guidelines Western blot testing not performed. Final
--- OUTSIDE RECORDS SUMMARY | 2022-10-08 05:43 | External Medical Summary ---
Author Name Unknown Organization [employer] [facility] tem Support Name Relationship Address Phone APOLONIA PEDERSON,MASON PROV Unknown Michelle vailable Laboratory Report Ordering Provider Test Date Status MASON BARKSDALE MD 01/20/2010 08:00-0500 F Obs # Observation Date Value ABNL Reference Status Pe rforming Location 1 BUN [facility] 01/20/2010 09:32-0500 11 6-20 mg/dL Final 2 Creat [facility] 01/20/2010 09:32-0500 0.7 0.7-1.5 mg/dL Final 3 Sodium [facility] 01/20/2010 09:32-0500 139 135-146 mmol/L Final 4 Potassium [facility] 01/20/2010 09:32-0500 3.8 3.5-5.1 mmol/L Final 5 Chloride [facility] 01/20/2010 09:32-0500 101 98-111 mmol/L Final 6 CO2 [facility] 01/20/2010 09:32-0500 31 22-32 mmol/L Final 7 Glucose [facility] 01/20/2010 09:32-0500 86 70-120 mg/dL Final 8 Anion Gap [facility] 01/20/2010 09:32-0500 7 7-15 mEq/L Final 9 Calcium [facility] 01/20/2010 09:32-0500 9.2 8.3-10.5 mg/dL Final 10 Pred GFR [facility] MDRD-vRate 01/20/2010 09:32-0500 >60.0 >60 mL/min Final
[2022-10-08] MEDS: LIOTHYRONINE SODIUM 25 MCG TAB PO SCH (06:02)
[2022-10-08] MEDS: LEVOTHYROXINE SODIUM 50 MCG TABLET PO SCH ×2 (06:02→08:35)
[2022-10-08] MEDS: POLYETHYLENE (MIRALAX) 17 GM PACK PO SCH ×3 (06:07→17:16)
[2022-10-08 08:02] LABS: Basophils # (auto) 0.02 K/uL (0.00-0.20); Basophils % (auto) 0.2 %; Hemoglobin 11.4 g/dl (12.0-16.0); Immature Granulocytes # (auto) 0.04 K/uL (0.01-0.20); Immature Granulocytes % (auto) 0.4 %; Lymphocytes # (auto) 1.06 K/uL (1.20-3.40); Lymphocytes % (auto) 9.5 %; Mean Corpuscular Hemoglobin 31.2 pg (25.0-34.0); Mean Corpuscular Hgb Conc 33.5 g/dL (32.0-36.0); Mean Corpuscular Volume 93.2 fL (80.0-100.0); Mean Platelet Volume 11.1 fL (9.4-12.4); Monocytes # (auto) 0.96 K/uL (0.11-0.59); Monocytes % (auto) 8.6 %; Neutrophils # (auto) 9.09 K/uL (1.40-6.50); Neutrophils % (auto) 81.3 %; Platelet Count 225 K/uL (130-400); RDW Coefficient of Variation 13.2 % (11.5-14.5); RDW Standard Deviation 45.2 fL (36.4-46.3); Red Blood Count 3.65 M/uL (4.20-5.40); White Blood Count 11.17 K/ul (4.8-10.8)
[2022-10-08 08:29] LABS: BUN Creatinine Ratio 16.4 (10-20); Calcium 8.8 mg/dl (8.6-10.3); Creatinine Clr Calc Pharmacy 117.7 ml/min; Est GFR (African American) 112.3 ml/min; Est GFR (Non-African American) 96.9 ml/min; Magnesium 1.9 mg/dl (1.7-2.4); Potassium 3.9 mmol/L (3.5-5.1)
[2022-10-08] MEDS: GABAPENTIN 300 MG CAP PO SCH (08:34)
[2022-10-08] MEDS: MULTIVITAMIN TAB PO SCH (08:34)
[2022-10-08] MEDS: dexAMETHasone 6 MG in SYRINGE 0 ML IV SCH (08:34)
[2022-10-08] MEDS: PANTOprazole 40 MG TAB PO SCH (08:34)
[2022-10-08] MEDS: ADVANCED PROBIOTIC 1250 MG CAPSULE PO SCH (08:34)
--- NOTE | 2022-10-08 08:37 | Orthopedic Progress Note ---
Date of Service October 08, 2022 Assessment & Plan (1) Neurogenic claudication due to lumbar spinal stenosis: Plan: At today Will initiate physical therapy monitor LANG operatively discharge home next few days. Admission and Anticipated Discharge Date Admission Date: October 07, 2022 Subjective Back pain controlled leg symptoms markedly improved Physical Exam Physical Exam: Patient is consented testing. Appears comfortable. Results & Data Vital Signs (Past 12 Hours) Vital Signs Temp Pulse Resp BP Pulse Ox O2 Del Method 10/08/22 07:38 36.8 C 88 18 118/69 97 Room Air 10/08/22 02:24 36.8 C 90 18 116/69 97 Room Air 10/07/22 22:28 36.3 C L 82 16 145/85 H 97 Room Air
[2022-10-08] MEDS: CHOLECALCIFEROL 5,000 UNITS 125 MCG TAB PO SCH (08:41)
--- NOTE | 2022-10-08 08:57 | Hospitalist Progress Note ---
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 (5) Hypomagnesemia: Plan: Repeat level with AM labs Admission and Anticipated Discharge Date Admission Date: October 07, 2022 Subjective Pt is doing well walking short distances, still with LANG drain in place pain controlled and only at operative site Physical Exam Physical Exam: awake and appropriate, back inspected and incision is c/d/i some tissue induration but no fluctance Results & Data Results & Data Vital Signs (Past 12 Hours) Vital Signs Temp Pulse Resp BP Pulse Ox O2 Del Method 10/08/22 07:38 98.2 F 88 18 118/69 97 Room Air 10/08/22 02:24 98.2 F 90 18 116/69 97 Room Air 10/07/22 22:28 97.3 F L 82 16 145/85 H 97 Room Air Laboratory Results reviewed cbc, mild post op anemia, likely acute blood loss anemia, not in need of transfusion PG Care Time/CCT Total # of Minutes Spent Total Time Spent with Patient: Total time spent is greater than 50% in coordination of care (as documented) at patient's floor/unit and/or counseling patient: Coding Level of Care Code 45162 SUB INP/OBS CARE 2/35MIN Diagnoses Neurogenic claudication due to lumbar spinal stenosis M48.062 Hypothyroidism E03.9 GERD (gastroesophageal reflux disease) K21.9 Post-Lyme disease syndrome B94.8 Hypomagnesemia E83.42
[2022-10-08] MEDS ORDERED: CHOLECALCIFEROL 5,000 UNITS 125 MCG TAB PO SCH (09:00)
[2022-10-08] MEDS: DOCUSATE SODIUM/SENNA 50/8.6MG TAB PO SCH (20:19)
[2022-10-08] MEDS: GABAPENTIN 400 MG CAP PO SCH (20:19)
[2022-10-09] MEDS: POLYETHYLENE (MIRALAX) 17 GM PACK PO SCH ×3 (00:58→13:23)
[2022-10-09] MEDS: LEVOTHYROXINE SODIUM 50 MCG TABLET PO SCH ×2 (05:56→05:57)
[2022-10-09] MEDS: LIOTHYRONINE SODIUM 25 MCG TAB PO SCH (05:57)
[2022-10-09] MEDS: oxyCODONE HCL IR 5 MG TAB (IMMEDIATE RELEASE) PO PRN ×2 (07:16→10:55)
[2022-10-09] MEDS: MULTIVITAMIN TAB PO SCH (08:28)
[2022-10-09] MEDS: GABAPENTIN 300 MG CAP PO SCH (08:28)
[2022-10-09] MEDS: PANTOprazole 40 MG TAB PO SCH (08:28)
[2022-10-09] MEDS: ADVANCED PROBIOTIC 1250 MG CAPSULE PO SCH (08:28)
[2022-10-09] MEDS: CHOLECALCIFEROL 5,000 UNITS 125 MCG TAB PO SCH (08:28)
[2022-10-09] MEDS: dexAMETHasone 6 MG in SYRINGE 0 ML IV SCH (08:29)
--- NOTE | 2022-10-09 09:48 | Discharge Summary ---
Date of Service October 09, 2022 Admission HPI Per Admitting Provider This is a 49-year-old female who presents with worsening chronic persistent back and leg pain and failing since course of nonoperative care is here for surgical invention. Principal Diagnosis Lumbar spinal stenosis with Claudjensen Discharge Data Allergies Allergy/AdvReac Type Severity Reaction Status Date / Time No Known Allergies Allergy Unknown Verified 10/07/22 07:59 Consultations 10/07/22 13:17 Consult Hospitalist Routine Procedures Performed Operation Date: 10/07/22 09:05 Actual Procedures p L4-L5 Decompression and Fusion(Not Applicable) - Abran Bianchi DO Ordered Studies 10/07/22 07:00 [place] lumbar spine 2-3V Routine Hospital Course (1) Neurogenic claudication due to lumbar spinal stenosis: Patient with limited motion fusion tolerated this well was taken to orthopedic floor extrapolate but was obtained when she was up and ambulating brisk. #2 LANG drain decreasing appropriate. Well pain well controlled. Excellent strength testing. Subsequent discharge home. Discharge orders instructions are on the chart for further review. Total Time Total Time Spent Total Time Spent (In Minutes): 20 minutes Discharge Plan Discharge Items Patient Disposition: Home - Self-Care Reason For Visit: Spinal Stenosis, Lumbar Region Without Neurogenic Discharge Diagnosis: Lumbar spinal stenosis with neurogenic claudication Activity: As commented below Non-emergency contact: Primary Care Provider Call non-emergency contact if: you have any medication questions Follow-up/Referrals: Anita Vides DO [Primary Care Provider] - Diet: Regular Addtl Attending Provider Instructions: ACTIVITY RECOMMENDATIONS: SELF CARE INSTRUCTIONS AFTER THORACIC/LUMBAR FUSIONS 1. You may walk to your tolerance. It is good exercise for your legs and back. Expect some back and intermittent leg aches and pains. 2. You may perform "counter-top" level activities (make a sandwich, main with a project, etc.). 3. No bending or lifting of more than 10 pounds or back twisting of any nature (roll like a log when turning in bed). 4. You may ride in a car for 20-30 minutes at a time. No driving until after your first visit with your doctor. 5. Frequent changes of position and restricting sitting to 30 minutes at a time will help limit the amount of back spasms and stiffness you may experience. 6. You may discontinue the use of ambulatory aids (cane, crutches, etc.) once your strength and confidence allow. 7. You may inlayer silver the shower and let water strike your incision when you arrive home at least once daily. Do not take a tub bath, sit in a hot tub or go into a swimming pool until after your first recheck in the office. SPECIAL CARE INSTRUCTIONS: VERY IMPORTANT TO READ AND REVIEW A. Your surgical incision has been closed with a cosmetic suture under the skin that will dissolve in about 6 weeks. In 14 days, you can use a pair of clean scissors and cut the suture that is left outside of the skin at the ends of your incision. 1. The small skin tapes can be removed 7 days after surgery if they have not fallen off by that point. 2. You may keep the wound open to air as much as possible to promote healing after post-op day number 5 unless told otherwise by your doctor. 3. If you think the wound looks like it is becoming infected (redness or worsening drainage) and/or you are experiencing fever, chill or worsening back pain and muscle spasms, contact the office so that we may evaluate you as soon as possible. B. Complications are uncommon, but please contact us if you have any signs or symptoms of: 1. wound infection (fever higher than 102.5 degrees F, redness, separation of wound, drainage, or increasing pain from the incision) 2. blood clots in legs (pain, swelling, redness and warmth in legs) 3. urinary tract infection (fever higher than 102.5 degrees F, burning upon urination or increased frequency of urination) 4. nerve problems (inability to walk on your toes or heels, numbness, loss of bowel or bladder control) 5. any other symptoms that concern you C. Please call the office at if you have any concerns or questions about your operation or recovery. D. No smoking! Smoking drastically decreases the chance of a solid fusion. E. Do not take any anti-inflammatory medications (Indocin, Advil, Motrin, Aspirin, Naprosyn, etc.) as these may inhibit the chance of a solid fusion. Tylenol is okay to take for pain. MANAGING PAIN AFTER SPINAL SURGERY 1. Narcotic medication is intended for short-term use and will be provided for surgical pain. Surgical pain usually lasts for a period of 4-6 weeks. Narcotic medication includes Percocet, Vicodin, Darvocet, Tylenol #3 or Lortab. 2. Longer-term pain is more appropriately treated with non-narcotic medication such as Tylenol ES. 3. Muscle spasm is not appropriately treated with narcotics. Muscle relaxers such as Soma, Flexeril or Skelaxin can be used along with Tylenol ES. 4. Remember that we all live with some "aches and pains". This is not unusual or uncommon after an injury or as we get older. a. Back pain is expected and may include muscle spasms for 4 to 6 weeks after surgery. The pain should gradually improve. If the pain worsens for no apparent reason, please contact the office. b. Intermittent leg pain may also be experienced and should not be concerned about unless it worsens for no apparent reason. If so, please contact the office. 5. We will provide appropriate medication within the normal guidelines of their prescribed use. We will also be very cautious and aware of potential abuse and extended duration of patients' medication needs. a. Pain medications are for your comfort and to assist with sleep and rest so that the tissue can heal. They are not provided in order to return to normal activity and should not be used through the day. To do so or worsening pain at night can result from ongoing tissue damage and development of tolerance to the prescribed medicine. 6. Please allow 2-3 days to process refills. Prescriptions will not be mailed but must be picked up at the office. FOLLOW UP VISIT: Keep your scheduled follow-up appointment. Any questions, please call the office at . Pending Studies at Discharge: No Stand-Alone Forms: My [facility] [employer], Smoking Cessation Medications and OR Order Prescriptions: New tramadol 50 mg tablet 50 mg PO Q6H PRN (Reason: pain, moderate) Qty: 30 0RF oxycodone 5 mg tablet 5 mg PO Q6H PRN (Reason: pain) Qty: 30 0RF Continued cyclobenzaprine 10 mg tablet 10 mg PO HS PRN (Reason: muscle spasm) Qty: 30 1RF gabapentin 400 mg capsule 400 mg PO HS Qty: 90 3RF levothyroxine 50 mcg tablet 50 mcg PO QAM Qty: 90 3RF L. acidophilus/Bifid. animalis 31 billion cell capsule 1 cap PO QAM multivitamin [Daily Multi-Vitamin] tablet 1 tab PO QAM ascorbic acid (vitamin C) 1,000 mg tablet 1 gm PO DAILY PRN (Reason: takes in wintertime only) Patient Comments: only takes in the winter magnesium oxide 500 mg capsule 500 mg PO DAILY PRN (Reason: muscle spasms) meloxicam 15 mg tablet 15 mg PO DAILY PRN (Reason: pain) Qty: 30 2RF Patient Comments: takes every morning glucosamine-chondroitin [Osteo Bi-Flex] 250-200 mg tablet 1 tab PO DAILY Rx Instructions: give after food/meal herbal supplement 1 dose PO DAILY Patient Comments: herbal tintures...burdock, sheep sorrel, slippery elm, turkey rubbard urtica dioca, white turmeric, zingiberofficinal, licorice, echinacea cholecalciferol (vitamin D3) [Vitamin D3] 125 mcg (5,000 unit) Tablet 125 mcg PO QAM liothyronine [Cytomel] 25 mcg tablet 25 mcg PO QAM gabapentin 300 mg capsule 300 mg PO QAM omeprazole 20 mg capsule,delayed release(DR/EC) 20 mg PO QAM loratadine [Claritin] 10 mg tablet 10 mg PO DAILY PRN (Reason: Allergy Symptoms) Discharge Orders: Discharge Order (Routine); Ordered 10/09/22 Ordered By: Abran Bianchi Admission Data Admit Date/Time: 10/07/22 10:59 Attending Provider: Abran Bianchi Admit Provider: Abran Bianchi Primary Care Provider: Anita Vides Other Providers: Chencho Madison ; Michael Romero
== END 2022-10-09 14:12 | disposition home or self-care (01) | DRG 454 ==
LOC: ASU 07:16 → 3W 10:59

== ENCOUNTER 2022-10-12 01:07 | Inpatient (IN) ==
[2022-10-12 02:00] LABS: Basophils # (auto) 0.02 K/uL (0.00-0.20); Basophils % (auto) 0.2 %; Eosinophils # (auto) 0.06 K/uL (0.00-0.50); Eosinophils % (auto) 0.5 %; Hematocrit (blood only) 37.3 % (37.0-47.0); Hemoglobin 12.6 g/dl (12.0-16.0); Immature Granulocytes # (auto) 0.03 K/uL (0.01-0.20); Immature Granulocytes % (auto) 0.3 %; Lymphocytes # (auto) 0.58 K/uL (1.20-3.40); Lymphocytes % (auto) 5.2 %; Mean Corpuscular Hemoglobin 31.3 pg (25.0-34.0); Mean Corpuscular Hgb Conc 33.8 g/dL (32.0-36.0); Mean Corpuscular Volume 92.8 fL (80.0-100.0); Monocytes # (auto) 1.07 K/uL (0.11-0.59); Monocytes % (auto) 9.5 %; Neutrophils # (auto) 9.49 K/uL (1.40-6.50); Neutrophils % (auto) 84.3 %; Platelet Count 252 K/uL (130-400); RDW Coefficient of Variation 12.4 % (11.5-14.5); RDW Standard Deviation 42.5 fL (36.4-46.3); Red Blood Count 4.02 M/uL (4.20-5.40); White Blood Count 11.25 K/ul (4.8-10.8)
[2022-10-12 02:19] LABS: Alanine Aminotransferase 48 U/L (7-52); Albumin Globulin Ratio 1.5 (0.9-2); Albumin Level 4.3 gm/dl (3.4-5.0); Alkaline Phosphatase 85 U/L (34-104); Anion Gap 9 (3-11); Aspartate Aminotransferase 61 U/L (13-39); BUN Creatinine Ratio 15.7 (10-20); Bilirubin,Total 1.1 mg/dl (0.2-1.0); Blood Urea Nitrogen 11 mg/dl (6-23); Calcium 9.7 mg/dl (8.6-10.3); Carbon Dioxide 28 mmol/L (21-32); Chloride 97 mmol/L (98-107); Est GFR (African American) 110.7 ml/min; Est GFR (Non-African American) 95.5 ml/min; Globulin 2.8 gm/dl (2.5-4.0); Glucose 126 mg/dl (70-99(Fasting)); Sodium 134 mmol/L (136-145); Total Protein 7.1 gm/dl (6.0-8.3)
[2022-10-12] MEDS ORDERED: SODIUM CHLORIDE 0.9% 1,000 ML IV ONE (02:35)
[2022-10-12] MEDS ORDERED: ONDANSETRON INJ 2 MG/ML 2 ML VIAL IV STA (02:35)
[2022-10-12] MEDS ORDERED: HYDROmorphone INJ 1 MG/ML SYRINGE IV STA ×2 (02:35→03:11)
--- NOTE | 2022-10-12 02:36 | Emergency Department Note ---
Impression & Plan Intractable back pain, Post-operative pain ED Provider Note Name: JAGRUTI GARIBAY Age: 57 Sex: F Arrives Via: Walk-In Informant: Patient, ED Provider: Francisco Garcia MD Chief Complaint: Back pain Impression: As per impressions above Medical Decision Making: Pleasant 57-year-old female arrives for evaluation of low back pain. Patient with L4-L5 lumbar surgery 5 days ago. Discharged 3 days ago feeling much better. Since then though pain is rapidly worsened. She is now in severe extreme pain. Pain radiates from low back down bilateral legs. No overt weakness of legs and no loss of bowel or bladder control. Home narcotics not working. Required multiple rounds of IV narcotics here to get pain under control and she became quite hypoxic with them. She is now feeling better. She was given some IV Toradol as well as IV Decadron. Continues to periodically require further medication. CT of the lumbar spine was obtained as she will be unable to lay flat for MRI given the amount of pain she is having. CT showed clear cause of pain but shows possible hyperdense material within the thecal sac. Made spine team aware and they will evaluate in the ER. Hospitalist also made aware as requested by spine team. Patient is not febrile she does have a mildly elevated white blood cell count I do not think that there is a clear evidence of infection at this time. Her white count the day of surgery was also slightly elevated. No clear indication to start antibiotics. Prior Medical Record and Triage/Nursing Notes reviewed by Me External chart reviewed by me including recent hospitalization records discharge summary. Differentials:Exacerbation of pain, hematoma, seroma, hardware failure/fracture, cauda equina, intrathecal bleed, infectious etiology, many other pathologies considered Vital Signs: reviewed and remarkable for hypertension Interventions: Dilaudid 1 mg IV x2, Dilaudid 0.5 mg IV x2, Toradol 15 mg IV, Decadron 10 mg IV, Zofran 4 mg IV, normal saline bolus IV Labs:Reviewed and remarkable for mildly elevated white blood cell count similar to earlier in week lab. Other labs reviewed by me as well. Imaging:CT of the lumbar spine as per my informal interpretation reveals no clear evidence of hardware fracture. No large fluid collections appreciated. Per radiologist read there is questionable hyperdense material in the thecal sac. Consults:[facility] of [facility] Ortho spine notes plan to eval in hospital, requested hospitalist evaluate as well. [place] Hospitalist consulted and notes they will follow along. Plan: Disposition:Hospitalization. Condition: Good History of Present Illness:57-year-old female arrives for evaluation of postoperative low back pain. Patient with a lumbar surgery for neurogenic claudication Wednesday of last week. She was discharged 2 days later on Wednesday afternoon. States she felt quite well when she was discharged and able to essentially walk home. Since getting home though she started having increasing low back pain. Initially a soreness but now it is stabbing and severe. Pain radiates down both legs. She is unable to bear any weight on her legs due to the severe pain. She denies any specific weakness that she has appreciated in her legs. She denies any urinary or bowel control issues. She has not had any fevers but she does feel a lot of chills. Denies any falls, trauma, injuries. No history of infections. No history of diabetes. Past History:See Below Home Medications:See Below Allergies:See Below Vitals:Blood Pressure: 153/79, Pulse 105, RR 20, T 36.6C, O2 98% on RA Physical Exam: GENERAL: Patient is very uncomfortable appearing and in severe distress. RESPIRATORY: No dyspnea. Clear to auscultation and equal bilaterally. No wheeze, no rhonchi. CARDIOVASCULAR: Regular rate and rhythm.No murmurs, rubs, gallops appreciated. GASTROINTESTINAL: Abdomen soft, non-tender, no peritonitis. BACK: Large lumbar midline surgical incision with Steri-Strips. Fair amount of surrounding edema/bruising with minimal erythema. Small amount of serous drain age from site where LANG drain was. EXTREMITIES: Normal motion all extremities, no cyanosis, no edema. NEUROLOGIC: Alert and oriented, no focal weakness. SKIN: No rash, no jaundice, no diaphoresis. PSYCH: Appropriate GCS: 15 ED Course: Times/Reassessments: Patient is much improved with pain medications though did become quite hypoxic post medication. She is unable to move without severe pain. Agreeable to hospitalization Francisco Garcia MD Past Med/Surg History Medical History GERD (gastroesophageal reflux disease) Hypothyroidism Leukopenia Low back pain Lumbar radiculopathy Lumbar spondylosis Migraines Pain of right sacroiliac joint Post-Lyme disease syndrome Surgical History H/O arthroscopic knee surgery History of ankle surgery History of carpal tunnel release History of esophagogastroduodenoscopy (EGD) Hx of colonoscopy Slow to wake up after anesthesia [place] teeth extracted Family History Mother Anxiety Brain tumor Depression Hypertension Brother Alcohol abuse Father Heart disease Denies family history of Ovarian cancer Prostate cancer Myocardial infarction Breast cancer Colorectal cancer Social History Smoking Status: Never smoker Second Hand Exposure: No; Do You Dip or Chew Tobacco: No; Hx Alcohol Use: Yes Alcohol type: beer, wine and hard liquor Hx Substance Use: No Preferred Language: [place] Communication Ability: Effective Visual Impairment: No Limitations Hearing Ability: Normal Lead Presser Required: No Beliefs That Will Affect Care: None marital status: Current Living Situation: Spouse and Family Current Living Situation Comment: spouse and son current occupational status: employed current occupation: [employer] Feels Safe at Home: Yes Childhood Exposure to Second-Hand Smoke: No Dental Care, Regularly: Yes Physical Activity Frequency: 1-2 Times per Week Seatbelt Use: sometimes Sunscreen Use: Yes Assistive Devices: Cane, Walker and Wheelchair Allergies Allergies Allergy/AdvReac Type Severity Reaction Status Date / Time No Known Allergies Allergy Unknown Verified 10/07/22 07:59 Home Meds Home Medications Medication Instructions Recorded Confirmed Lactobacillus 1 cap PO QAM 06/23/18 10/12/22 acidophilus-Bifidobac.animalis 31 billion cell capsule ascorbic acid (vitamin C) 1,000 mg 1 gm PO DAILY PRN takes in 07/25/18 10/12/22 tablet wintertime only multivitamin (Daily Multi-Vitamin 1 tab PO QAM 07/25/18 10/12/22 tablet) glucosamine-chondroitin 250 mg-200 1 tab PO DAILY 08/15/21 10/12/22 mg tablet (Osteo Bi-Flex) herbal supplement 1 dose PO DAILY 08/15/21 10/12/22 magnesium oxide 500 mg capsule 500 mg PO DAILY PRN muscle spasms 08/15/21 10/12/22 cholecalciferol (vitamin D3) 125 125 mcg PO QAM 09/16/22 10/12/22 mcg (5,000 unit) tablet (Vitamin D3) gabapentin 300 mg capsule 300 mg PO QAM 09/16/22 10/12/22 liothyronine 25 mcg tablet 25 mcg PO QAM 09/16/22 10/12/22 (Cytomel) loratadine 10 mg tablet (Claritin) 10 mg PO DAILY PRN Allergy Symptoms 09/16/22 10/12/22 omeprazole 20 mg capsule,delayed 20 mg PO QAM 09/16/22 10/12/22 release Previous Rx's Medication Instructions Recorded gabapentin 400 mg capsule 400 mg PO HS #90 caps 09/14/22 levothyroxine 50 mcg tablet 50 mcg PO QAM #90 tabs 10/07/22 oxycodone 5 mg tablet 5 mg PO Q6H PRN pain #30 tabs 10/07/22 tramadol 50 mg tablet 50 mg PO Q6H PRN pain, moderate 10/07/22 #30 tabs Results & Data (ED) Vital Signs Vital Signs - 24 hr 10/12/22 01:09 10/12/22 05:01 10/12/22 07:31 Temperature 36.6 C Temperature Source Temporal Artery Scan Pulse Rate 105 H 77 Pulse Rate [Finger] 93 H Respiratory Rate 20 24 18 Respiratory Effort / Characteristics Non-Labored Spontaneous Respiratory Depth Normal Blood Pressure 153/79 H 141/82 H Blood Pressure [Right Arm] 154/79 H Blood Pressure Mean 103 101 Blood Pressure Mean [Right Arm] 104 Blood Pressure Position Sitting Pulse Oximetry 98 99 99 Oxygen Delivery Method Room Air Nasal Cannula Oxymask Oxygen Flow Rate 2 8 Sepsis Recent Fever Within 48 Hours No Sepsis New/Unexplained Change in Mental Status N/A Sepsis Action Taken by Nursing No Action Required Laboratory Data 10/12/22 01:48 10/12/22 01:48 Lab Results 10/12/22 10/12/22 10/12/22 Range/Units 01:48 01:48 07:45 WBC 11.25 H (4.8-10.8) K/ul RBC 4.02 L (4.20-5.40) M/uL Hgb 12.6 (12.0-16.0) g/dl Hct 37.3 (37.0-47.0) % MCV 92.8 (80.0-100.0) fL MCH 31.3 (25.0-34.0) pg MCHC 33.8 (32.0-36.0) g/dL RDW Std Deviation 42.5 (36.4-46.3) fL RDW Coeff of Malinda 12.4 (11.5-14.5) % Plt Count 252 (130-400) K/uL MPV 11.0 (9.4-12.4) fL Immature Gran % (Auto) 0.3 % Neut % (Auto) 84.3 % Lymph % (Auto) 5.2 % Luce % (Auto) 9.5 % Eos % (Auto) 0.5 % Baso % (Auto) 0.2 % Neut # (Auto) 9.49 H (1.40-6.50) K/uL Lymph # (Auto) 0.58 L (1.20-3.40) K/uL Luce # (Auto) 1.07 H (0.11-0.59) K/uL Eos # (Auto) 0.06 (0.00-0.50) K/uL Baso # (Auto) 0.02 (0.00-0.20) K/uL Immature Gran # (Auto) 0.03 (0.01-0.20) K/uL Sodium 134 L (136-145) mmol/L Potassium 4.0 (3.5-5.1) mmol/L Chloride 97 L (98-107) mmol/L Carbon Dioxide 28 (21-32) mmol/L Anion Gap 9 (3-11) BUN 11 (6-23) mg/dl Creatinine 0.70 (0.6-1.2) mg/dl Est Cr Clr Drug Dosing Not Reportable Est GFR ( Amer) 110.7 ml/min Est GFR (Non-Af Amer) 95.5 ml/min BUN/Creatinine Ratio 15.7 (10-20) Glucose 126 H (70-99(Fasting)) mg/dl Calcium 9.7 (8.6-10.3) mg/dl Total Bilirubin 1.1 H (0.2-1.0) mg/dl AST 61 H (13-39) U/L ALT 48 (7-52) U/L Alkaline Phosphatase 85 (34-104) U/L Total Protein 7.1 (6.0-8.3) gm/dl Albumin 4.3 (3.4-5.0) gm/dl Globulin 2.8 (2.5-4.0) gm/dl Albumin/Globulin Ratio 1.5 (0.9-2) Urine Color Yellow Urine Appearance Clear (Clear) Urine pH 8.5 H (4.5-7.5) Ur Specific [place] 1.013 (1.000-1.030) Urine Protein Negative (Negative) Urine Glucose (UA) Negative (Negative) Urine Ketones 1+ H (Negative) Urine Blood Negative (Negative) Urine Nitrite Negative (Negative) Urine Bilirubin Negative (Negative) Urine Urobilinogen Negative (Negative) Ur Leukocyte Esterase Negative (Negative) Administered Medications Hydromorphone HCl (Hydromorphone Inj 0.5 Mg/0.5 Ml Syr) 0.5 mg IV Q15M PRN PRN Reason: Pain Stop: 10/26/22 06:14 Last Admin: 10/12/22 07:43 Dose: 0.5 mg Documented By: KENN Discontinued Medications Dexamethasone Sodium Phosphate (DexamethasonePf 10 Mg/Ml Vial) 10 mg IV NOW ONE Stop: 10/12/22 05:21 Last Admin: 10/12/22 05:42 Dose: 10 mg Documented By: EDWINA Hydromorphone HCl (Hydromorphone Inj 1 Mg/Ml Syringe) 1 mg IV NOW STA Stop: 10/12/22 02:36 Last Admin: 10/12/22 02:38 Dose: 1 mg Documented By: EDWINA Hydromorphone HCl (Hydromorphone Inj 1 Mg/Ml Syringe) 1 mg IV NOW STA Stop: 10/12/22 03:12 Last Admin: 10/12/22 03:24 Dose: 1 mg Documented By: EDWINA Hydromorphone HCl (Hydromorphone Inj 0.5 Mg/0.5 Ml Syr) 0.5 mg IV NOW STA Stop: 10/12/22 04:14 Last Admin: 10/12/22 04:36 Dose: 0.5 mg Documented By: OCTAVIA Sodium Chloride (Nss 1000ml) 1,000 mls @ 999 mls/hr IV .Q1H1M ONE Stop: 10/12/22 03:35 Last Infusion: 10/12/22 04:31 Dose: 0 mls/hr Documented By: Admin: 10/12/22 02:38 Dose: 999 mls/hr Documented By: EDWINA Ketorolac Tromethamine (Ketorolac Tromethamine 15 Mg/Ml Vial) 15 mg IV NOW STA Stop: 10/12/22 04:14 Last Admin: 10/12/22 04:33 Dose: 15 mg Documented By: OCTAVIA Ondansetron HCl (Ondansetron Inj 2 Mg/Ml 2 Ml Vial) 4 mg IV NOW STA Stop: 10/12/22 02:36 Last Admin: 10/12/22 02:38 Dose: 4 mg Documented By: EDWINA Imaging Data Radiologist's Impression: Lumbar Spine CT 10/12/22 02:35 Exam(s): CT L SPINE EXAM: CT Lumbar Spine Without Intravenous Contrast CLINICAL HISTORY: Reason for exam: post lumbar surg pain. TECHNIQUE: Axial computed tomography images of the lumbar spine without intravenous contrast. CTDI is 39.4 mGy and DLP is 1212.8 mGy-cm. Automated exposure control was utilized for the study. A dose lowering technique was utilized adhering to the principles of ALARA. COMPARISON: None. FINDINGS: Vertebrae: Obscuration of the thecal sac at L4-L5 due to metallic artifact from hardware. High density debris seen in the region of the thecal sac. Normal lumbar lordosis. No substantial scoliosis. Normal alignment. Normal vertebral bodies with no acute fracture. Discs/spinal canal/neural foramina: Status post posterior fusion at L4- L5 with disc prosthesis. Mild multilevel narrowing of disc height. Soft tissues: Unremarkable. IMPRESSION: 1. Postoperative changes at the L4-L5. Poor visualization of the thecal sac at this level due to artifact from transpedicular screws. 2. Suggestion of high density structures, ill-defined within the region of the thecal sac versus artifact. 3. If clinical symptoms do not improve, recommend short interval ultrasound CT or MRI for further evaluation. Electronically signed by: Felicity Guerin MD 10/12/22 04:33 AM Discharge Plan Visit Data Chief Complaint: Back Injury/Pain Stated Complaint: BACK PAIN INTO LEG,SURGERY LAST WED ED Provider: Francisco Garcia Discharge Problem: Intractable back pain, Post-operative pain Forms Stand Alone Forms: My [employer] Prescriptions Prescriptions: No Action gabapentin 400 mg capsule 400 mg PO HS Qty: 90 3RF levothyroxine 50 mcg tablet 50 mcg PO QAM Qty: 90 3RF L. acidophilus/Bifid. animalis 31 billion cell capsule 1 cap PO QAM multivitamin [Daily Multi-Vitamin] tablet 1 tab PO QAM ascorbic acid (vitamin C) 1,000 mg tablet 1 gm PO DAILY PRN (Reason: takes in wintertime only) Patient Comments: only takes in the winter magnesium oxide 500 mg capsule 500 mg PO DAILY PRN (Reason: muscle spasms) glucosamine-chondroitin [Osteo Bi-Flex] 250-200 mg tablet 1 tab PO DAILY Rx Instructions: give after food/meal herbal supplement 1 dose PO DAILY Patient Comments: herbal tintures...burdock, sheep sorrel, slippery elm, turkey rubbard urtica dioca, white turmeric, zingiberofficinal, licorice, echinacea cholecalciferol (vitamin D3) [Vitamin D3] 125 mcg (5,000 unit) Tablet 125 mcg PO QAM liothyronine [Cytomel] 25 mcg tablet 25 mcg PO QAM gabapentin 300 mg capsule 300 mg PO QAM omeprazole 20 mg capsule,delayed release(DR/EC) 20 mg PO QAM loratadine [Claritin] 10 mg tablet 10 mg PO DAILY PRN (Reason: Allergy Symptoms) tramadol 50 mg tablet 50 mg PO Q6H PRN (Reason: pain, moderate) Qty: 30 0RF oxycodone 5 mg tablet 5 mg PO Q6H PRN (Reason: pain) Qty: 30 0RF Referrals Referrals: Anita Vides DO [Primary Care Provider] -
[2022-10-12] MEDS ORDERED: KETOROLAC TROMETHAMINE 15 MG/ML VIAL IV STA (04:13)
[2022-10-12] MEDS ORDERED: HYDROmorphone INJ 0.5 MG/0.5 ML SYR IV STA (04:13)
--- NOTE | 2022-10-12 04:34 | CT Scan Report ---
Exam(s): CT L SPINE EXAM: CT Lumbar Spine Without Intravenous Contrast CLINICAL HISTORY: Reason for exam: post lumbar surg pain. TECHNIQUE: Axial computed tomography images of the lumbar spine without intravenous contrast. CTDI is 39.4 mGy and DLP is 1212.8 mGy-cm. Automated exposure control was utilized for the study. A dose lowering technique was utilized adhering to the principles of ALARA. COMPARISON: None. FINDINGS: Vertebrae: Obscuration of the thecal sac at L4-L5 due to metallic artifact from hardware. High density debris seen in the region of the thecal sac. Normal lumbar lordosis. No substantial scoliosis. Normal alignment. Normal vertebral bodies with no acute fracture. Discs/spinal canal/neural foramina: Status post posterior fusion at L4- L5 with disc prosthesis. Mild multilevel narrowing of disc height. Soft tissues: Unremarkable. IMPRESSION: 1. Postoperative changes at the L4-L5. Poor visualization of the thecal sac at this level due to artifact from transpedicular screws. 2. Suggestion of high density structures, ill-defined within the region of the thecal sac versus artifact. 3. If clinical symptoms do not improve, recommend short interval ultrasound CT or MRI for further evaluation. Electronically signed by: Felicity Guerin MD 10/12/22 04:33 AM
[2022-10-12] MEDS ORDERED: dexAMETHasone**PF** 10 MG/ML VIAL IV ONE (05:20)
[2022-10-12] MEDS ORDERED: HYDROmorphone INJ 0.5 MG/0.5 ML SYR IV PRN ×2 (06:15→13:24)
[2022-10-12 07:58] LABS: Appearance Urine Clear (Clear); Bilirubin Urine Negative (Negative); Blood Urine Negative (Negative); Color Urine Yellow; Glucose Urine UA Negative (Negative); Ketones Urine 1+ (Negative); Leukocyte Esterase Urine Negative (Negative); Nitrite Urine Negative (Negative); Protein Urine Negative (Negative); Specific Gravity Urine 1.013 (1.000-1.030); Urobilinogen Urine Negative (Negative); pH Urine 8.5 (4.5-7.5)
[2022-10-12] MEDS: BUPIVACAINE/EPINEPHRINE 0.25% 1:200,000 30 ML VIAL ONE ×2 (09:22→11:49)
[2022-10-12] MEDS: ceFAZolin 330 MG/ML 1 GM VIAL ONE ×2 (09:22→11:49)
--- NOTE | 2022-10-12 09:53 | Anesthesiology Consultation ---
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 History Surgery Operation Date: 10/12/22 11:00 Proposed Procedures p Incision and Drainage Lumbar - Abran Bianchi DO Height/Weight Height: 5 ft 7 in Weight: 115.6 kg Allergies Allergy/AdvReac Type Severity Reaction Status Date / Time No Known Allergies Allergy Unknown Verified 10/07/22 07:59 Medications Home Medications Medication Instructions Recorded Confirmed Last Taken Lactobacillus 1 cap PO QAM 06/23/18 10/12/22 10/11/22 acidophilus-Bifidobac.animalis 31 billion cell capsule ascorbic acid (vitamin C) 1,000 mg 1 gm PO DAILY PRN takes in 07/25/18 10/12/22 Unknown tablet wintertime only multivitamin (Daily Multi-Vitamin 1 tab PO QAM 07/25/18 10/12/22 10/11/22 tablet) glucosamine-chondroitin 250 mg-200 1 tab PO DAILY 08/15/21 10/12/22 10/11/22 mg tablet (Osteo Bi-Flex) herbal supplement 1 dose PO DAILY 08/15/21 10/12/22 10/11/22 magnesium oxide 500 mg capsule 500 mg PO DAILY PRN muscle spasms 08/15/21 10/12/22 Unknown gabapentin 400 mg capsule 400 mg PO HS #90 caps 09/14/22 10/12/22 10/11/22 cholecalciferol (vitamin D3) 125 125 mcg PO QAM 09/16/22 10/12/22 10/11/22 mcg (5,000 unit) tablet (Vitamin D3) gabapentin 300 mg capsule 300 mg PO QAM 09/16/22 10/12/22 10/11/22 liothyronine 25 mcg tablet 25 mcg PO QAM 09/16/22 10/12/22 10/11/22 (Cytomel) loratadine 10 mg tablet (Claritin) 10 mg PO DAILY PRN Allergy Symptoms 09/16/22 10/12/22 Unknown omeprazole 20 mg capsule,delayed 20 mg PO QAM 09/16/22 10/12/22 10/11/22 release levothyroxine 50 mcg tablet 50 mcg PO QAM #90 tabs 10/07/22 10/12/22 10/11/22 oxycodone 5 mg tablet 5 mg PO Q6H PRN pain #30 tabs 10/07/22 10/12/22 10/11/22 tramadol 50 mg tablet 50 mg PO Q6H PRN pain, moderate 10/07/22 10/12/22 10/10/22 #30 tabs Active Medications Generic Name Dose Route Start Last Admin Trade Name Joanna PRN Reason Stop Dose Admin Hydromorphone HCl 0.5 mg 10/12/22 06:15 10/12/22 07:43 Hydromorphone Inj 0.5 Mg/0.5 Ml Syr IV 10/26/22 06:14 0.5 mg Q15M PRN Administration Pain Past Medical History Medical History GERD (gastroesophageal reflux disease) Hypothyroidism Leukopenia PCP monitoring Low back pain Lumbar radiculopathy Lumbar spondylosis Migraines Pain of right sacroiliac joint Post-Lyme disease syndrome Takes multiple herbal supplements to help with this Past Family History Family History Mother Anxiety Brain tumor Depression Hypertension Brother Alcohol abuse Father Heart disease Denies family history of Ovarian cancer Prostate cancer Myocardial infarction Breast cancer Colorectal cancer Past Surgical History Surgical History H/O arthroscopic knee surgery History of ankle surgery History of carpal tunnel release History of esophagogastroduodenoscopy (EGD) Hx of colonoscopy Slow to wake up after anesthesia [place] teeth extracted Social History Smoking Status: Never smoker Do You Dip or Chew Tobacco: No Hx Alcohol Use: Yes Alcohol type: beer, wine and hard liquor alcohol intake frequency: a few times a week Hx Substance Use: No substance use type: does not use Physical Exam Vital Signs Last Vital Signs Temp 97.9 F 10/12/22 01:09 Pulse 77 10/12/22 07:31 Resp 16 10/12/22 09:22 BP 110/48 L 10/12/22 09:22 Pulse Ox 98 10/12/22 09:22 O2 Del Method Oxymask 10/12/22 09:22 O2 Flow Rate 4 10/12/22 09:22 Testing Laboratory Results 10/12/22 01:48 10/12/22 01:48 Urine Color Yellow 10/12/22 07:45 Urine Appearance Clear (Clear) 10/12/22 07:45 Urine pH 8.5 (4.5-7.5) H 10/12/22 07:45 Ur Specific [place] 1.013 (1.000-1.030) 10/12/22 07:45 Urine Protein Negative (Negative) 10/12/22 07:45 Urine Glucose (UA) Negative (Negative) 10/12/22 07:45 Urine Ketones 1+ (Negative) H 10/12/22 07:45 Urine Nitrite Negative (Negative) 10/12/22 07:45 Ur Leukocyte Esterase Negative (Negative) 10/12/22 07:45 Electrocardiogram Date: 09/21/22 Findings: + NSR @ (79 bpm) Chest X-Ray Date: 09/21/22 Findings: + NAD
[2022-10-12] MEDS ORDERED: fentaNYL citrate PF 100 MCG/2 ML VIAL ONE ×3 (09:54→12:28)
[2022-10-12] MEDS ORDERED: DEXAMETHASONE SOD INJ 4 MG/ML VIAL ONE (09:55)
[2022-10-12] MEDS ORDERED: LIDOCAINE 2% 2 ML VIAL/AMP(20MG/ML) INFIL ONE (09:55)
[2022-10-12] MEDS ORDERED: ROCURONIUM BROMIDE 10 MG/ML 5 ML VIAL IV ONE (09:55)
[2022-10-12] MEDS ORDERED: ONDANSETRON INJ 2 MG/ML 2 ML VIAL ONE (09:55)
[2022-10-12] MEDS ORDERED: MIDAZOLAM HCL 1 MG/ML 2ML VIAL ONE (09:55)
[2022-10-12] MEDS ORDERED: PROPOFOL IV EMULSION 10 MG/ML 20 ML VIAL IV ONE (09:55)
--- NOTE | 2022-10-12 10:39 | History & Physical Report ---
Date of Service October 12, 2022 Assessment & Plan (1) Post-operative pain: Plan: Assessment lumbar postoperative hematoma. Plan patient's clinical presentation and CAT scan are consistent with a postoperative fluid collection most likely hematoma causing significant neural compression. I am recommending a urgent irrigation and debridement of the lumbar spine. Patient stands and agrees. Risk benefits pros cons alternatives in detail. We will plan for surgery soon as possible. History of Present Illness Chief Complaint: Severe back and bilateral leg pain with inability to ambulate Primary Care Provider: Anita Vides DO This is a 49-year-old female known to me status post lumbar depression fusion L4-5 last week. She had a normal postoperative course and was discharged on Wednesday. Unfortunately throughout the weekend she began experiencing worsening back and leg pain with standing and ambulation. The pain became severe unable to ambulate and came to the emergency room last evening. Allergies Allergy/AdvReac Type Severity Reaction Status Date / Time No Known Allergies Allergy Unknown Verified 10/07/22 07:59 Home Medications Medication Instructions Recorded Confirmed Type Lactobacillus 1 cap PO QAM 06/23/18 10/12/22 History acidophilus-Bifidobac.animalis 31 billion cell capsule ascorbic acid (vitamin C) 1,000 mg 1 gm PO DAILY PRN takes in 07/25/18 10/12/22 History tablet wintertime only multivitamin (Daily Multi-Vitamin 1 tab PO QAM 07/25/18 10/12/22 History tablet) glucosamine-chondroitin 250 mg-200 1 tab PO DAILY 08/15/21 10/12/22 History mg tablet (Osteo Bi-Flex) herbal supplement 1 dose PO DAILY 08/15/21 10/12/22 History magnesium oxide 500 mg capsule 500 mg PO DAILY PRN muscle spasms 08/15/21 10/12/22 History gabapentin 400 mg capsule 400 mg PO HS #90 caps 09/14/22 10/12/22 Rx cholecalciferol (vitamin D3) 125 125 mcg PO QAM 09/16/22 10/12/22 History mcg (5,000 unit) tablet (Vitamin D3) gabapentin 300 mg capsule 300 mg PO QAM 09/16/22 10/12/22 History liothyronine 25 mcg tablet 25 mcg PO QAM 09/16/22 10/12/22 History (Cytomel) loratadine 10 mg tablet (Claritin) 10 mg PO DAILY PRN Allergy Symptoms 09/16/22 10/12/22 History omeprazole 20 mg capsule,delayed 20 mg PO QAM 09/16/22 10/12/22 History release levothyroxine 50 mcg tablet 50 mcg PO QAM #90 tabs 10/07/22 10/12/22 Rx oxycodone 5 mg tablet 5 mg PO Q6H PRN pain #30 tabs 10/07/22 10/12/22 Rx tramadol 50 mg tablet 50 mg PO Q6H PRN pain, moderate 10/07/22 10/12/22 Rx #30 tabs Past Med/Surg History Medical History GERD (gastroesophageal reflux disease) Hypothyroidism Leukopenia PCP monitoring Low back pain Lumbar radiculopathy Lumbar spondylosis Migraines Pain of right sacroiliac joint Post-Lyme disease syndrome Takes multiple herbal supplements to help with this Surgical History H/O arthroscopic knee surgery History of ankle surgery History of carpal tunnel release History of esophagogastroduodenoscopy (EGD) Hx of colonoscopy Slow to wake up after anesthesia [place] teeth extracted Family History Mother Anxiety Brain tumor Depression Hypertension Brother Alcohol abuse Father Heart disease Denies family history of Ovarian cancer Prostate cancer Myocardial infarction Breast cancer Colorectal cancer Social History Smoking Status: Never smoker Second Hand Exposure: No; Do You Dip or Chew Tobacco: No; Hx Alcohol Use: Yes Alcohol type: beer, wine and hard liquor Hx Substance Use: No Preferred Language: Yi Communication Ability: Effective Visual Impairment: No Limitations Hearing Ability: Normal Cat Breeder Required: No Beliefs That Will Affect Care: None marital status: Current Living Situation: Spouse and Family Current Living Situation Comment: spouse and son current occupational status: employed current occupation: [employer] Feels Safe at Home: Yes Childhood Exposure to Second-Hand Smoke: No Dental Care, Regularly: Yes Physical Activity Frequency: 1-2 Times per Week Seatbelt Use: sometimes Sunscreen Use: Yes Assistive Devices: Cane, Walker and Wheelchair Physical Exam Physical Exam: Patient is lying in a lateral decubitus position. This is her most comfortable state. The dressings in place no gross drainage. She has reasonable strength testing lower extremity sensory symmetric and intact. Results & Data Results & Data Vital Signs (Past 12 Hours) Vital Signs Temp Pulse Pulse Resp BP BP Pulse Ox 10/12/22 09:22 16 110/48 L 98 10/12/22 07:31 77 18 141/82 H 99 10/12/22 05:01 93 H 24 154/79 H 99 10/12/22 01:09 36.6 C 105 H 20 153/79 H 98 O2 Del Method O2 Flow Rate 10/12/22 09:22 Oxymask 4 10/12/22 07:31 Oxymask 8 10/12/22 05:01 Nasal Cannula 2 10/12/22 01:09 Room Air
[2022-10-12] MEDS ORDERED: ATROPINE SULFATE 0.1 MG/ML 10ML SYR IV PRN (10:59)
[2022-10-12] MEDS ORDERED: ONDANSETRON INJ 2 MG/ML 2 ML VIAL IV PRN ×2 (10:59→13:24)
[2022-10-12] MEDS ORDERED: HYDROmorphone INJ 1 MG/ML SYRINGE IV PRN ×2 (10:59→13:24)
[2022-10-12] MEDS ORDERED: ePHEDrine sulfate 50 MG/ML AMP IV PRN (10:59)
[2022-10-12] MEDS ORDERED: fentaNYL citrate PF 100 MCG/2 ML VIAL IV PRN (10:59)
[2022-10-12] MEDS ORDERED: GENTAMICIN SULFATE 40 MG/ML 2 ML VIAL ONE (11:11)
[2022-10-12] MEDS ORDERED: VANCOMYCIN HCL 1000MG/20ML VIAL ONE (11:12)
[2022-10-12] MEDS ORDERED: ceFAZolin 330 MG/ML 1 GM VIAL ONE (11:38)
[2022-10-12] MEDS ORDERED: ceFAZolin 2000MG 2,000 MG/15 ML SYR IV ONE (11:51)
--- NOTE | 2022-10-12 12:09 | Operative Report ---
Post Operative Report Pre & Post Diagnosis Operation Date: 10/12/22 11:00 Pre-Op Diagnosis: Post-operative Hematoma Post-Op Diagnosis: Post-operative hematoma I identified the patient and participated in the time-out.: Yes Procedure Operation Date: 10/12/22 11:00 Actual Procedures Irrigation and debridement lumbar spine Surgeon Abran Bianchi DO It [employer] Specialist None Estimated Blood Loss 25 Findings Consistent with Post-Op Diagnosis Specimens None Indications This is a 49-year-old female presents emergency room last evening with severe back and leg pain. Imaging demonstrated evidence of Description of Procedure Patient was met with identified informed consent obtained. Patient was then taken to the operative suite underwent ablation placed in a prone position to check stable topicals and frame. All bony promises well-padded eyes inspected to ensure no external approximately spinal. This point lumbar spine was prepped and draped in a sterile fashion. I then opened the previous incision site release the fascia and noted significant collection of blood consistent with ep idural hematoma. Several liters of saline were then irrigated throughout the incision. I explored the dura and removed any bone graft or additional hematoma. Approximately 3 cc of Stimulan beads impregnated with vancomycin and gentamicin were then was placed throughout the wound. 15 round drain drain inserted. The incision was then closed with 1 Vicryl to fascia 2-0 Vicryl subcutaneously and 4 Monocryl for final closure. Steri-Strips dressings placed. Patient awakened and taken to PACU in stable condition. I attest to the content of the Intraoperative Record and any orders documented therein. Any exceptions are noted below.
--- NOTE | 2022-10-12 12:34 | Anesthesiology Progress Note ---
Date of Service October 12, 2022 Anesthesia Post Procedure Vital Signs Vital Signs: Temp Pulse Pulse Pulse Resp BP BP 10/12/22 12:17 97.0 F L 103 H 12 159/84 H 10/12/22 10:38 82 18 124/67 10/12/22 09:22 16 110/48 L 10/12/22 07:31 77 18 141/82 H 10/12/22 05:01 93 H 24 154/79 H 10/12/22 01:09 97.9 F 105 H 20 153/79 H Pulse Ox O2 Del Method O2 Flow Rate 10/12/22 12:17 100 Oxymask 8 10/12/22 10:38 100 Nasal Cannula 3 10/12/22 09:22 98 Oxymask 4 10/12/22 07:31 99 Oxymask 8 10/12/22 05:01 99 Nasal Cannula 2 10/12/22 01:09 98 Room Air Pain Intensity Bilateral Back: Pain Intensity: 6 Transfer of Care Handoff Completed per policy Notes Mental Status: alert / awake / arousable and participated in evaluation Patient Amnestic to Procedure: Yes Nausea / Vomiting: adequately controlled Pain: adequately controlled Airway Patency, RR, SpO2: stable & adequate BP & HR: stable & adequate Hydration State: stable & adequate Anesthetic Complications: no major complications apparent and Pt Satisfied with anesthetic care
[2022-10-12] MEDS ORDERED: DO NOT ADMINISTER FLU VACCINE PRN (13:24)
[2022-10-12] MEDS ORDERED: DO NOT ADMINISTER PNEUMOCOCCAL VACCINE PRN (13:24)
[2022-10-12] MEDS ORDERED: SOD PHOSPHATE/SOD BIPHOSPHATE ENEMA 132 ML BTL PR PRN (13:24)
[2022-10-12] MEDS ORDERED: NALOXONE HCL 0.4 MG/1 ML VIAL/CARP IV PRN (13:24)
[2022-10-12] MEDS ORDERED: traMADol HCL 50 MG TABLET PO PRN (13:24)
[2022-10-12] MEDS ORDERED: hydrOXYzine HCl 25 MG TAB PO PRN (13:24)
[2022-10-12] MEDS ORDERED: ACETAMINOPHEN 1,000 MG/100 ML VIAL IV PRN (13:24)
[2022-10-12] MEDS ORDERED: diphenhydrAMINE Capsule 25 MG CAP PO PRN (13:24)
[2022-10-12] MEDS ORDERED: METOCLOPRAMIDE HCL INJ 5 MG/ML 2 ML VIAL IV PRN (13:24)
[2022-10-12] MEDS ORDERED: MAGNESIUM HYDROXIDE SUSP 30 ML UDC PO PRN (13:24)
[2022-10-12] MEDS ORDERED: FAMOTIDINE 20 MG TAB PO PRN (13:24)
[2022-10-12] MEDS ORDERED: ALUMINUM/MAGNESIUM SUSP 30 ML UDC PO PRN (13:24)
[2022-10-12] MEDS ORDERED: ONDANSETRON 4 MG OD TAB PO PRN (13:24)
[2022-10-12] MEDS ORDERED: PROMETHAZINE HCL 12.5 MG in SODIUM CHLORIDE 0.9% 50 ML IV PRN (13:24)
[2022-10-12] MEDS ORDERED: bisacodyL 10 MG SUPP PR PRN (13:24)
[2022-10-12] MEDS ORDERED: LORazepam 2 MG/1 ML VIAL IV PRN (13:24)
[2022-10-12] MEDS: LACTATED RINGER'S 1,000 ML IV SCH (14:04)
[2022-10-12] MEDS ORDERED: MAGNESIUM OXIDE 400 MG TAB PO PRN (14:16)
[2022-10-12] MEDS: oxyCODONE HCL IR 5 MG TAB (IMMEDIATE RELEASE) PO PRN ×2 (14:51→19:56)
[2022-10-12] MEDS: ceFAZolin 2000MG 2,000 MG/15 ML SYR IV SCH (18:43)
[2022-10-12] MEDS: DOCUSATE SODIUM/SENNA 50/8.6MG TAB PO SCH (19:58)
[2022-10-12] MEDS: GABAPENTIN 400 MG CAP PO SCH (19:59)
[2022-10-12] MEDS: LORazepam 0.5 MG TAB PO PRN (21:15)
[2022-10-13] MEDS: oxyCODONE HCL IR 5 MG TAB (IMMEDIATE RELEASE) PO PRN ×3 (00:51→23:40)
[2022-10-13] MEDS: ceFAZolin 2000MG 2,000 MG/15 ML SYR IV SCH (03:48)
[2022-10-13] MEDS: LACTATED RINGER'S 1,000 ML IV SCH (04:01)
[2022-10-13] MEDS: LIOTHYRONINE SODIUM 25 MCG TAB PO SCH (05:43)
[2022-10-13] MEDS: LEVOTHYROXINE SODIUM 50 MCG TABLET PO SCH (05:43)
[2022-10-13] MEDS: POLYETHYLENE (MIRALAX) 17 GM PACK PO SCH ×4 (05:47→23:40)
[2022-10-13 06:17] LABS: Basophils # (auto) 0.01 K/uL (0.00-0.20); Basophils % (auto) 0.1 %; Hematocrit (blood only) 30.6 % (37.0-47.0); Hemoglobin 10.8 g/dl (12.0-16.0); Immature Granulocytes # (auto) 0.05 K/uL (0.01-0.20); Immature Granulocytes % (auto) 0.4 %; Lymphocytes # (auto) 0.78 K/uL (1.20-3.40); Lymphocytes % (auto) 6.2 %; Mean Corpuscular Hgb Conc 35.3 g/dL (32.0-36.0); Mean Corpuscular Volume 90.5 fL (80.0-100.0); Mean Platelet Volume 10.6 fL (9.4-12.4); Monocytes # (auto) 0.87 K/uL (0.11-0.59); Monocytes % (auto) 6.9 %; Neutrophils # (auto) 10.92 K/uL (1.40-6.50); Neutrophils % (auto) 86.4 %; Platelet Count 282 K/uL (130-400); RDW Coefficient of Variation 12.4 % (11.5-14.5); RDW Standard Deviation 41.1 fL (36.4-46.3); Red Blood Count 3.38 M/uL (4.20-5.40); White Blood Count 12.63 K/ul (4.8-10.8)
[2022-10-13 06:23] LABS: BUN Creatinine Ratio 15.6 (10-20); Calcium 8.7 mg/dl (8.6-10.3); Creatinine Clr Calc Pharmacy 125.8 ml/min; Est GFR (Non-African American) 98.4 ml/min; Potassium 4.2 mmol/L (3.5-5.1)
[2022-10-13] MEDS: GABAPENTIN 300 MG CAP PO SCH (07:53)
[2022-10-13] MEDS: PANTOprazole 40 MG TAB PO SCH (07:53)
[2022-10-13] MEDS: CHOLECALCIFEROL 5,000 UNITS 125 MCG TAB PO SCH (07:53)
[2022-10-13] MEDS: ADVANCED PROBIOTIC 1250 MG CAPSULE PO SCH (07:53)
[2022-10-13] MEDS: ACETAMINOPHEN 500 MG TAB PO PRN (07:54)
[2022-10-13] MEDS ORDERED: KETOROLAC 30 MG/ML VIAL IV ONE (10:16)
--- NOTE | 2022-10-13 10:16 | Orthopedic Progress Note ---
Date of Service October 13, 2022 Assessment & Plan (1) Intractable back pain: Plan: Patient is status post a evacuation of hematoma and progressing appropriately. We will maintain the LANG drain possible discharge home tomorrow. Admission and Anticipated Discharge Date Admission Date: October 12, 2022 Subjective Patient's back pain is controlled leg pain markedly improved Physical Exam Physical Exam: Patient is currently ambulating the halls with a walker. She is much improved. Results & Data Vital Signs (Past 12 Hours) Vital Signs Temp Pulse Resp BP Pulse Ox O2 Del Method 10/13/22 07:16 36.5 C 70 18 111/78 93 Room Air 10/13/22 03:53 36.5 C 68 14 131/81 99 Room Air 10/12/22 22:39 36.8 C 76 18 135/82 98 Room Air
[2022-10-13] MEDS ORDERED: dexAMETHasone 8 MG in SYRINGE 0 ML IV ONE (10:30)
[2022-10-13] MEDS ORDERED: SODIUM CHLORIDE 0.9% 1,000 ML IV SCH (16:15)
--- NOTE | 2022-10-13 18:45 | Electrocardiogram Report ---
Test Reason : Blood Pressure : / mmHG Vent. Rate : 094 BPM Atrial Rate : 094 BPM P-R Int : 136 ms QRS Dur : 076 ms QT Int : 334 ms P-R-T Axes : 071 -11 030 degrees QTc Int : 417 ms Normal sinus rhythm Normal ECG When compared with ECG of 21-SEP-2022 10:07, No significant change was found Confirmed by Carter Tejada ([id number]) on 10/13/2022 6:44:42 PM Referred By: Anita Vides Confirmed By:Wayne Tejada
--- NOTE | 2022-10-13 20:16 | Consultation ---
Date of Consultation October 13, 2022 Assessment & Plan (1) Dizziness: Orthostatic BPs checked - only dropped ~10 points with standing. However, has felt dizzy/"woozy" with standing and walking. Will give 1 L of isotonic fluid and re-eval following such. (2) Status post lumbar surgery: Original surgery 10/07/22 - lumbar decompression-fusion surgery by Dr Bianchi. Now, POD #1 s/p epidural hematoma incision & drainage. Defer Rx to orthopedics. (3) Epidural hematoma: POD #1 s/p incision/drainage. By report no evidence that the hematoma had any infectious characteristics to it. Defer Rx to orthopedics. (4) Hypothyroidism: TSH of 1 in 09/2022. Cont levothyroid + liothyronine. (5) GERD (gastroesophageal reflux disease): Cont PPI. Plan DVT proph - ambulation/SCS. Thank you for this consult. We will follow with you. History of Present Illness Requesting Physician: post-op medical management Reason for Consultation: post-op medical management Attending Physician: Abran Bianchi, DO History of Present Illness Pleasant 57yo female with hypothyroidism and GERD who had undergone lumbar back surgery by Dr Venancio Bianchi on 10/07/22. Specifically, she had lumbar decompression, bilateral medial facetectomies and foraminotomies at L3-L4 & L4-5, along with posterior spinal fusion at L4-5. Post-op course was uneventful and she was d/c home in satisfactory condition. However, once home, she was having severe back pain and leg pain. She returned to [facility] on 10/12/[address] was [address] Dr Bianchi. She was taken back to the OR on 10/12/22 and an epidural hematoma was discovered. This was drained and irrigated. She is now POD #1. She was resting comfortably in bed during the visit. She reports fatigue, weakness, and "feeling wobbly" when she stands and walks. Having pain in lumbar region but not the legs. Denies chest pain, dyspnea or abd pain. No stool yet. Eating fair. Allergies Allergy/AdvReac Type Severity Reaction Status Date / Time No Known Allergies Allergy Unknown Verified 10/07/22 07:59 Home Medications Medication Instructions Recorded Confirmed Type Lactobacillus 1 cap PO QAM 06/23/18 10/12/22 History acidophilus-Bifidobac.animalis 31 billion cell capsule ascorbic acid (vitamin C) 1,000 mg 1 gm PO DAILY PRN takes in 07/25/18 10/12/22 History tablet wintertime only multivitamin (Daily Multi-Vitamin 1 tab PO QAM 07/25/18 10/12/22 History tablet) glucosamine-chondroitin 250 mg-200 1 tab PO DAILY 08/15/21 10/12/22 History mg tablet (Osteo Bi-Flex) herbal supplement 1 dose PO DAILY 08/15/21 10/12/22 History magnesium oxide 500 mg capsule 500 mg PO DAILY PRN muscle spasms 08/15/21 10/12/22 History gabapentin 400 mg capsule 400 mg PO HS #90 caps 09/14/22 10/12/22 Rx cholecalciferol (vitamin D3) 125 125 mcg PO QAM 09/16/22 10/12/22 History mcg (5,000 unit) tablet (Vitamin D3) gabapentin 300 mg capsule 300 mg PO QAM 09/16/22 10/12/22 History loratadine 10 mg tablet (Claritin) 10 mg PO DAILY PRN Allergy Symptoms 09/16/22 10/12/22 History omeprazole 20 mg capsule,delayed 20 mg PO QAM 09/16/22 10/12/22 History release levothyroxine 50 mcg tablet 50 mcg PO QAM #90 tabs 10/07/22 10/12/22 Rx oxycodone 5 mg tablet 5 mg PO Q6H PRN pain #30 tabs 10/07/22 10/12/22 Rx tramadol 50 mg tablet 50 mg PO Q6H PRN pain, moderate 10/07/22 10/12/22 Rx #30 tabs liothyronine 25 mcg tablet 25 mcg PO QAM #90 tabs 10/13/22 Rx (Cytomel) Patient History Medical History (Updated 10/14/22 @ 07:52 by Chencho Torres MD) GERD (gastroesophageal reflux disease) Hypothyroidism Leukopenia PCP monitoring Low back pain Lumbar radiculopathy Lumbar spondylosis Migraines Pain of right sacroiliac joint Post-Lyme disease syndrome Takes multiple herbal supplements to help with this Surgical History (Updated 10/14/22 @ 07:31 by Chencho Torres MD) H/O arthroscopic knee surgery History of ankle surgery History of carpal tunnel release History of esophagogastroduodenoscopy (EGD) Hx of colonoscopy Slow to wake up after anesthesia Status post lumbar surgery 10/07/22 - decompression/fusion - Dr Tash Magall[place]om teeth extracted Family History Mother , age 83 Anxiety Brain tumor Depression Hypertension Brother Alcohol abuse Father , age 93 Heart disease CHF Denies family history of Ovarian cancer Prostate cancer Myocardial infarction Breast cancer Colorectal cancer Social History Smoking Status: Never smoker Second Hand Exposure: No; Do You Dip or Chew Tobacco: No; Hx Alcohol Use: Yes Alcohol type: beer, wine and hard liquor Hx Substance Use: No Preferred Language: Lao Communication Ability: Effective Visual Impairment: No Limitations Hearing Ability: Normal Auto Tire Recapper Required: No Beliefs That Will Affect Care: None marital status: Current Living Situation: Spouse Current Living Situation Comment: spouse and son current occupational status: employed 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 Other Information That Helps Us Care for You: No Feels Safe at Home: Yes Childhood Exposure to Second-Hand Smoke: No Dental Care, Regularly: Yes Physical Activity Frequency: 1-2 Times per Week Seatbelt Use: sometimes Sunscreen Use: Yes Assistive Devices: Cane, Raised Toilet Seat and Walker Review of Systems Review of Systems: gen - no fevers or chills; +fatigue HENT - no URI symptoms, no dysphagia eyes - no vision changes CV - no chest pain, no orthopnea pulm - no dyspnea, no cough GI - no abd pain/nausea/emesis; + constipation - voiding wnl musculo - lumbar back pain neuro - no headache endo - no diabetes skin - no rash Physical Exam Physical Exam: gen - NAD, laying in bed comfortably, pleasant HENT - MM slightly dry, no lesions neck - no JVD heart - RRR, s1 s2, no murmur lungs - CTA b/l abd - soft NT ND BS+ ext - no edema, pulses 2+ b/l neuro - DTRs 2+ b/l upper/lower exts; strength 5/5 x 4 exts; no facial droop skin - dressings intact lumbar spine region, drain in place psych - a/o x 3 Results & Data Vital Signs (Past 12 Hours) Vital Signs Temp Pulse Resp BP Pulse Ox O2 Del Method 10/13/22 10:52 36.6 C 72 18 117/78 100 Room Air Laboratory Results Laboratory Results 10/12/22 10/13/22 10/13/22 07:45 05:42 05:42 WBC 12.63 H RBC 3.38 L Hgb 10.8 L Hct 30.6 L MCV 90.5 MCH 32.0 MCHC 35.3 RDW Std Deviation 41.1 RDW Coeff of Malinda 12.4 Plt Count 282 MPV 10.6 Immature Gran % (Auto) 0.4 Neut % (Auto) 86.4 Lymph % (Auto) 6.2 [place] % (Auto) 6.9 Eos % (Auto) 0.0 Baso % (Auto) 0.1 Neut # (Auto) 10.92 H Lymph # (Auto) 0.78 L [place] # (Auto) 0.87 H Eos # (Auto) 0.00 Baso # (Auto) 0.01 Immature Gran # (Auto) 0.05 Sodium 137 Potassium 4.2 Chloride 104 Carbon Dioxide 28 Anion Gap 5 BUN 10 Creatinine 0.64 Est Cr Clr Drug Dosing 125.8 Est GFR ( Amer) 114.0 Est GFR (Non-Af Amer) 98.4 BUN/Creatinine Ratio 15.6 Glucose 126 H Calcium 8.7 Urine Color Yellow Urine Appearance Clear Urine pH 8.5 H Ur Specific [place] 1.013 Urine Protein Negative Urine Glucose (UA) Negative Urine Ketones 1+ H Urine Blood Negative Urine Nitrite Negative Urine Bilirubin Negative Urine Urobilinogen Negative Ur Leukocyte Esterase Negative PG Care Time/CCT Total # of Minutes Spent Total Time Spent with Patient: Total time spent is greater than 50% in coordination of care (as documented) at patient's floor/unit and/or counseling patient: Coding Level of Care Code 96710 IN/OBS CONSULT LVL 3,45M Diagnoses Dizziness R42 Status post lumbar surgery Z98.890 Epidural hematoma S06.4XAA Hypothyroidism E03.9 GERD (gastroesophageal reflux disease) K21.9
[2022-10-13] MEDS: DOCUSATE SODIUM/SENNA 50/8.6MG TAB PO SCH (21:38)
[2022-10-13] MEDS: GABAPENTIN 400 MG CAP PO SCH (21:38)
[2022-10-13] MEDS: LORazepam 0.5 MG TAB PO PRN (21:43)
[2022-10-14] MEDS: POLYETHYLENE (MIRALAX) 17 GM PACK PO SCH ×2 (05:58→14:42)
[2022-10-14] MEDS: oxyCODONE HCL IR 5 MG TAB (IMMEDIATE RELEASE) PO PRN ×2 (05:58→12:56)
[2022-10-14] MEDS: LEVOTHYROXINE SODIUM 50 MCG TABLET PO SCH (05:58)
[2022-10-14] MEDS: LIOTHYRONINE SODIUM 25 MCG TAB PO SCH (05:59)
[2022-10-14] MEDS: ADVANCED PROBIOTIC 1250 MG CAPSULE PO SCH (07:49)
[2022-10-14] MEDS: CHOLECALCIFEROL 5,000 UNITS 125 MCG TAB PO SCH (07:49)
[2022-10-14] MEDS: GABAPENTIN 300 MG CAP PO SCH (07:49)
[2022-10-14] MEDS: PANTOprazole 40 MG TAB PO SCH (07:49)
[2022-10-14] MEDS: ACETAMINOPHEN 500 MG TAB PO PRN ×2 (07:54→14:53)
--- NOTE | 2022-10-14 08:59 | Hospitalist Progress Note ---
Date of Service October 14, 2022 Assessment & Plan (1) Status post lumbar surgery: Plan: Original surgery 10/07/22 - lumbar decompression-fusion surgery by Dr Bianchi. Now, POD #2 s/p epidural hematoma incision & drainage. Defer Rx to orthopedics. Patient reporting want to monitor overnight/more comfortable w/ dc tomorrow (2) Dizziness: Plan: Orthostatic BPs checked - only dropped ~10 points with standing. However, has felt dizzy/"woozy" with standing and walking. Given 1 L of isotonic fluid and re-eval following such --> RESOLVED FEELING DIZZINESS, improvement in PO intake. Reports fatigue though. Repeat hgb stable, afebrile. Poor sleep overnight reported -- would like to monitor overnight and dc in [facility] (3) Epidural hematoma: Plan: POD #2 s/p incision/drainage. By report no evidence that the hematoma had any infectious characteristics to it. Defer Rx to orthopedics. (4) Hypothyroidism: Plan: TSH of 1 in 09/2022. Cont levothyroid + liothyronine. (5) GERD (gastroesophageal reflux disease): Plan: Cont PPI. Plan DVT proph - ambulation/SCS. Thank you for allowing hospitalist service to participate in the care of Ms Abarca. Please call with any questions/concerns. Admission and Anticipated Discharge Date Admission Date: October 12, 2022 Supervising Physician Co-Signing Physician Notes The patient was not seen by me. The chart was reviewed. Case discussed with FILI Galindo. Agree with assessment and plan Subjective Patient evaluated this morning, had good day yesterday, reports then had a poor evening/poor sleep/increased pain and up in the chair since around 4am this morning. passing gas but no BM. reports had BM at home after dc last time. On the fence about discharge today and would rather monitor overnight/continued pain control and if improved/stable plan for dc tomorrow. Will discuss w/ Dr Bianchi about monitoring overnight and discharge in the morning. No fever/chills, chest pain, shortness of breath, abdominal pain, nausea/vomiting reported. Questions/concerns addressed at this time. Review of Systems Review of Systems: All systems reviewed & are unremarkable except as noted in HPI & below Physical Exam Physical Exam: gen - WN/WD obese female sitting up in chair, NAD HENT - head normocephalic, atraumatic, mmm, trachea midline heart - RRR, s1 s2, no murmur lungs - CTA b/l abd - soft NT ND BS+ ext - no edema, pulses 2+ b/l neuro - DTRs 2+ b/l upper/lower exts; strength 5/5 x 4 exts; no facial droop skin - dressings intact lumbar spine region, drain in place , bloody drainage noted psych - a/o x 3 , cooperative with exam Results & Data Results & Data Vital Signs (Past 12 Hours) Vital Signs Temp Pulse Resp BP Pulse Ox O2 Del Method 10/14/22 07:34 36.8 C 69 16 145/86 H 99 Room Air 10/13/22 22:05 36.9 C 73 18 160/90 H 96 Room Air Laboratory Results 10/14/22 10/14/22 Range/Units 08:31 08:31 WBC 8.65 (4.8-10.8) K/ul RBC 3.42 L (4.20-5.40) M/uL Hgb 10.8 L (12.0-16.0) g/dl Hct 32.3 L (37.0-47.0) % MCV 94.4 (80.0-100.0) fL MCH 31.6 (25.0-34.0) pg MCHC 33.4 (32.0-36.0) g/dL RDW Std Deviation 44.8 (36.4-46.3) fL RDW Coeff of Malinda 12.9 (11.5-14.5) % Plt Count 340 (130-400) K/uL MPV 10.6 (9.4-12.4) fL Sodium 137 (136-145) mmol/L Potassium 3.8 (3.5-5.1) mmol/L Chloride 102 (98-107) mmol/L Carbon Dioxide 29 (21-32) mmol/L Anion Gap 6 (3-11) BUN 15 (6-23) mg/dl Creatinine 0.75 (0.6-1.2) mg/dl Est Cr Clr Drug Dosing 107.4 ml/min Est GFR ( Amer) 101.8 ml/min Est GFR (Non-Af Amer) 87.9 ml/min BUN/Creatinine Ratio 20.0 (10-20) Glucose 127 H (70-99(Fasting)) mg/dl Calcium 9.0 (8.6-10.3) mg/dl Magnesium 1.9 (1.7-2.4) mg/dl Total Bilirubin 0.5 (0.2-1.0) mg/dl AST 19 (13-39) U/L ALT 23 (7-52) U/L Alkaline Phosphatase 66 (34-104) U/L Total Protein 6.1 (6.0-8.3) gm/dl Albumin 3.6 (3.4-5.0) gm/dl Globulin 2.5 (2.5-4.0) gm/dl Albumin/Globulin Ratio 1.4 (0.9-2) PG Care Time/CCT Total # of Minutes Spent Total Time Spent with Patient: Total time spent is greater than 50% in coordination of care (as documented) at patient's floor/unit and/or counseling patient: Coding Level of Care Code 26157 SUB INP/OBS CARE 2/35MIN Diagnoses Status post lumbar surgery Z98.890 Dizziness R42 Epidural hematoma S06.4XAA Hypothyroidism E03.9 GERD (gastroesophageal reflux disease) K21.9
[2022-10-14 09:14] LABS: Hematocrit (blood only) 32.3 % (37.0-47.0); Hemoglobin 10.8 g/dl (12.0-16.0); Mean Corpuscular Hemoglobin 31.6 pg (25.0-34.0); Mean Corpuscular Hgb Conc 33.4 g/dL (32.0-36.0); Mean Corpuscular Volume 94.4 fL (80.0-100.0); Mean Platelet Volume 10.6 fL (9.4-12.4); Platelet Count 340 K/uL (130-400); RDW Coefficient of Variation 12.9 % (11.5-14.5); RDW Standard Deviation 44.8 fL (36.4-46.3); Red Blood Count 3.42 M/uL (4.20-5.40); White Blood Count 8.65 K/ul (4.8-10.8)
[2022-10-14 09:43] LABS: Albumin Globulin Ratio 1.4 (0.9-2); Albumin Level 3.6 gm/dl (3.4-5.0); Bilirubin,Total 0.5 mg/dl (0.2-1.0); Creatinine Clr Calc Pharmacy 107.4 ml/min; Est GFR (African American) 101.8 ml/min; Est GFR (Non-African American) 87.9 ml/min; Globulin 2.5 gm/dl (2.5-4.0); Magnesium 1.9 mg/dl (1.7-2.4); Potassium 3.8 mmol/L (3.5-5.1); Total Protein 6.1 gm/dl (6.0-8.3)
[2022-10-14] MEDS ORDERED: dexAMETHasone 8 MG in SYRINGE 0 ML IV STA (10:51)
--- NOTE | 2022-10-14 12:52 | Orthopedic Progress Note ---
Date of Service October 14, 2022 Assessment & Plan (1) Epidural hematoma: Plan: At this time she is progressing appropriately. We discussed discharge home today we will discharge home with her drain. She will follow-up in the office on Wednesday for drain removal. Admission and Anticipated Discharge Date Admission Date: October 12, 2022 Subjective Back pain controlled leg pain markedly improved Physical Exam Physical Exam: Patient is in the chair at the bedside. She is comfortable. Is concerned to testing. Results & Data Vital Signs (Past 12 Hours) Vital Signs Temp Pulse Resp BP Pulse Ox O2 Del Method 10/14/22 07:34 36.8 C 69 16 145/86 H 99 Room Air
== END 2022-10-14 15:16 | disposition home or self-care (01) | DRG 909 ==
LOC: ED 01:07 → OR 11:43 → 3E 12:12